=== PATIENT | female | born 1950 | race Caucasian/White ===

== ENCOUNTER 2016-09-16 17:57 | Inpatient (IN) | payer OTHER ==
[~2016-09-16] VITALS: Ht 170.2 cm; Wt 94.9 kg
[~2016-09-16 17:57] MED LIST: ALBU0.5N2 NEB; ALBU1AER9 INH; ALPR-411 PO; DLR500 PO; MECL1TAB42 PO; OMEP40CA PO; ONDA8TAB7 PO; SPRIN/30 PO; SYMIN160 INH; VENL150C PO
[2016-09-16] MEDS ORDERED: METHYLPREDNISOLONE 125 MG VIAL IV STA (18:24)
[2016-09-16] MEDS ORDERED: ALBUT/IPRATROP 3MG/0.5MG NEB 3 ML VIAL INH ONE (18:30)
[2016-09-16 18:42] VITALS: PULSE 78; O2SAT 98
[2016-09-16] MEDS ORDERED: VENL37.593 PO (18:50)
[2016-09-16] MEDS ORDERED: OMEP40CA41 PO (18:50)
[2016-09-16] MEDS ORDERED: PROAIR INH (18:50)
[2016-09-16] MEDS ORDERED: ALBINS/ INH (18:50)
[2016-09-16] MEDS ORDERED: GLC500 PO (18:50)
[2016-09-16 19:30] LABS: INR 0.9 (0.9-1.1); PARTIAL THROMBOPLASTIN RATIO 0.8
[2016-09-16 19:31] LABS: PROTHROMBIN TIME (PATIENT) 9.7 SECONDS (9.0-12.0)
[2016-09-16 20:08] LABS: HEMATOCRIT 28.4 % (37-47); MEAN CELL VOLUME 67.9 fL (80-100); MEAN CORPUSCULAR HEMOGLOBIN 19.9 pg (25-34); MEAN CORPUSCULAR HGB CONC 29.2 g/dl (32-36); PLATELET COUNT 188 K/uL (130-400); RED BLOOD COUNT 4.18 M/uL (4.2-5.4); WHITE BLOOD COUNT 8.32 K/uL (4.8-10.8)
[2016-09-16 20:13] LABS: BUN/CREATININE RATIO 24.2 (10-20); CALCIUM 8.7 mg/dl (8.5-10.1); CREATININE 0.74 mg/dl (0.60-1.20); POTASSIUM 4.1 mmol/L (3.5-5.1)
--- NOTE | 2016-09-16 20:42 | DIAGNOSTIC IMAGING REPORT ---
CHEST 2 VIEWS ROUTINE HISTORY: Short of breath. COMPARISON: Chest 05/18/2015. FINDINGS: There is advanced emphysema. Lower lung zone interstitial thickening remains unchanged and is likely due to vascular crowding. The heart is normal in size. No pleural effusions. No pneumothorax. No new focal lung consolidations. A questionable 9 mm nodular density within the left upper lobe. IMPRESSION: No acute process. Advanced emphysema is again noted. A questionable 9 mm nodular density within the left upper lobe which is likely due to overlapping soft tissue. However, follow-up nonemergent chest CT is recommended for confirmation. Electronically signed by: Herminio Forrest M.D. 09/16/2016 8:40 PM Dictated Date/Time: 09/16/2016 8:37 PM
[2016-09-16 20:56] LABS: BASO % 0.1 %; BASO ABS # 0.01 K/uL (0-0.2); COMPLETE YES; EOS % 1.8 %; HYPOCHROMIA PRESENT; IG% 0.2 %; LYMPH % 26.3 %; LYMPH ABS # 2.19 K/uL (1.2-3.4); MICROCYTOSIS PRESENT; MONO % 7.8 %; NEUT % 63.8 %; POLYCHROMASIA 1+
[2016-09-16] MEDS ORDERED: PANTOprazole INJ 80 MG in DEXTROSE 5% 100ML IV STA (21:19)
[2016-09-16] MEDS ORDERED: PANTOprazole INJ 40 MG in DEXTROSE 5% 100ML IV STA (21:20)
[2016-09-16 21:43] LABS: HEMATOCRIT 27.9 % (37-47)
[2016-09-16 21:54] LABS: VEN BLD GAS O2 SATURATION 80.6 %; VEN BLOOD GAS BASE EXCESS 4.6 mmol/L
[2016-09-16] MEDS ORDERED: NITROGLYCERIN 0.4 MG SL PER TAB CHARGE SL PRN (22:00)
[2016-09-16] MEDS ORDERED: GLUCAGON FOR INJ 1 MG VIAL SQ PRN (22:00)
[2016-09-16] MEDS ORDERED: GLUCOSE 10 TABS/TUBE PO PRN (22:00)
[2016-09-16] MEDS ORDERED: ACETAMINOPHEN 325 MG TAB PO PRN (22:00)
[2016-09-16] MEDS ORDERED: MoRPHine SULFATE 4 MG/ML 1 ML CARP\\VIAL IV PRN (22:00)
[2016-09-16] MEDS ORDERED: LORAZEPAM 2 MG/ML 1 ML VIAL IV PRN (22:00)
[2016-09-16] MEDS ORDERED: GLUCOSE 40% GEL 15 GM TUBE PO PRN (22:00)
[2016-09-16] MEDS ORDERED: DEXTROSE 50% 50 ML SYR IV PRN (22:00)
[2016-09-16 22:07] LABS: ALKALINE PHOSPHATASE 84 U/L (45-117); ALT/SGPT 21 U/L (12-78); AST/SGOT 14 U/L (15-37); MAGNESIUM 1.8 mg/dl (1.8-2.4)
[2016-09-16 23:00] VITALS: BP 120/68; TEMP 36.7; BMI 32.8
[2016-09-16] MEDS ORDERED: MAGNESIUM SULFATE 1GM / D5W 1 GM in PREMIXED IN D5W 100 ML IV ONE (23:00)
[2016-09-16] MEDS: CLOTRIMAZOLE 10 MG TROCHE MT SCH (23:00)
--- NOTE | 2016-09-16 23:02 | DIAGNOSTIC IMAGING REPORT ---
BILATERAL LOWER EXTREMITY VENOUS DOPPLER HISTORY: Difficulty breathing. Assess for DVT. leg cramping COMPARISON STUDY: None. FINDINGS: There is normal compressibility, flow, and augmentation within the bilateral lower extremity deep venous systems. IMPRESSION: No DVT within the right or left lower extremity. Electronically signed by: Herminio Forrest M.D. 09/16/2016 11:01 PM Dictated Date/Time: 09/16/2016 11:00 PM
[2016-09-16] MEDS ORDERED: DOXYCYCLINE IV 100 MG in DEXTROSE 5% 100ML 100 ML IV STA (23:31)
[2016-09-16] MEDS ORDERED: INSULIN GLARGINE SOLOSTAR 100 UNITS/ML 3 ML PEN SC STA (23:32)
[2016-09-16] MEDS ORDERED: GUAIFENESIN 600 MG TABCR PO STA (23:49)
--- NOTE | 2016-09-16 23:56 | HISTORY & PHYSICAL EXAMINATION ---
DATE OF ADMISSION: 09/16/2016 PRIMARY CARE DOCTOR: Dr. Rosales from [place]. Hx obtained from px and records. CHIEF COMPLAINT: Shortness of breath. HISTORY OF PRESENT ILLNESS: Medical history significant for chronic respiratory failure secondary to COPD on home O2, past tobacco abuse, anxiety, mood disorder, DM2, on oral medications, chronic anemia (most recent hemoglobin was 9.2 from 06/2016 at [facility]) Recent confinement at [facility] 05/2015 for COPD exacerbation. Patient was admitted at [facility] in 05/2016 for pneumonia. Discharged after 2 days on antibiotics and steroids. Breathing not any better even after discharge. PX suffering for next 2 months. Shortness of breath worse on exertion, occasional chest discomfort going across her chest from congestion. cough productive of sticky, junky haynes sputum denies aspiration some leg cramping Worsening symptoms the last 2 weeks. Px denies abdominal pain. Denies black/bloody stools. She saw her PCP on followup. He prescribed Amoxicillin and Prednisone course for her cough/sob sx. Px also prescribed gargle for oral thrush. Minimal sx improvement. She was sent for an outpatient CT chest wo contrast yesterday at [facility] by PCP. Pneumonia seemed to resolve, stable COPD, benign lung nodules, no lung malignancy as per report. Outpatient chemistry also done. Of note, hemoglobin A1c was noted to be 9. TSH was noted to be 1.38. Patient consulted Emergency Room for worsening shortness of breath/cough symptoms. Px given Solumedrol and nebs at the ER for COPD exacerbation. MEDICAL HISTORY: As above. According to the patient, she had an EGD about 3 years ago which showed "fungus and inflammation" ?Kavitha esophagitis. Colonoscopy done 3 yrs ago was "normal" as per px Colonoscopy from years prior showed polyps. SURGERIES: She has had section. HOME MEDICATIONS: Include metformin, Effexor, Spiriva, Daliresp, Proventil, alprazolam, Symbicort, Prilosec. ALLERGIES: No known drug allergies. FAMILY HISTORY: COPD, colon cancer. PERSONAL AND SOCIAL HISTORY: Past tobacco abuse. No chronic intake of alcoholic beverages. Retired from property management/rental work. REVIEW OF SYSTEMS: As per HPI. All other ROS negative. PHYSICAL EXAMINATION: VITAL SIGNS: Blood pressure was noted to be 150/70, pulse rate 88, RR 24, temp 36.6, sats 95 on 4 liters. GENERAL: Noted to be obese, anxious, no respiratory distress. SKIN: Pallor. HEENT: Pale palpebral conjunctivae. Dry mucosa. nasal cannula in place NECK: Short neck. LUNGS: Decreased breath sounds. Occasional wheeze. HEART: Regular rate and rhythm. ABDOMEN: Some distention, nontender. RECTAL EXAM as per ER MD : brown stool, FOBT positive EXTREMITIES: Minimal LE edema, no tenderness. NEUROLOGIC: No gross focality. LABORATORY DATA: Hemoccult done in the ER was heme positive. Hemoglobin was 8.2, hematocrit 28.4, white cell count 9, platelets 188. Sodium 140, potassium 4.1, chloride 112, CO2 18, BUN 18, creatinine 0.7, glucose was noted to be 171. trop 0 Venous blood gas, pH 7.41, pCO2 of 48. (px refused ABG) Chest x-ray showed emphysema, questionable 9 mm nodular density left upper lobe. EKG NSR, low voltage, no ischemia ASSESSMENT: 1. Shortness of breath for weeks/months multifactorial : acute on chronic hypoxemic respiratory failure secondary to chronic obstructive pulmonary disease exacerbation, protracted symptoms No sepsis. Symptomatic anemia. Hemoglobin drop from baseline, occult gastrointestinal bleed. ro underlying pulmonary hypertension. 2. DM2, on oral meds, suboptimal control as of recent A1c. 3. oral thrush. 4. past tobacco abuse PLAN: PCU. Supplemental O2. Cultures. Doxycycline, nebs, steroids. Pulmonary consult for COPD exacerbation (px known to Dr. Lacey) 2D echo RE shortness of breath, rule out pulmonary hypertension. Transfuse pRBC for symptomatic anemia GI consult for occult GI bleed, hemoglobin drop. Clotrimazole julian for thrush. Basal insulin, ISS BG goal 140-180. Carb count coverage indicated for suboptimal blood sugar control. DM education PT/OT eval DVT prophylaxis, SCDs. RE occult GI bleed. Full code. MTDD
[2016-09-17] VITALS (28 sets, daily range): BP systolic 110–147; BP diastolic 51–72; PULSE 63–99; TEMP 36.5–37.3; O2SAT 89–99; Ht 170.2 cm; Wt 94.9 kg
--- NOTE | 2016-09-17 00:29 | EMERGENCY ROOM VISIT NOTE ---
History Report prepared by Lobo: Esther Lewis Under the Supervision of: Dr. Johnny Fisher M.D. First contact with patient: 18:15 Chief Complaint: RESPIRATORY DISTRESS Stated Complaint: CAN'T BREATH, COPD History of Present Illness The patient is a 65 year old female who presents to the Emergency Room with complaints of worsening shortness of breath for the past few weeks. She has a history of COPD and is on 2L of O2 all the time. The patient was admitted to [facility] in May with bilateral pneumonia. She was discharged with steroids and antibiotics and states that she never fully recovered from her pneumonia. The patient saw her PCP 1 month ago for shortness of breath and was placed on amoxicillin and a steroid. She just finished these medications 2 days ago, but is not feeling better. The patient reports chest pain for the past few months that radiates into her back. Her pain as a soreness to her sternum. It is worse with cough. She has a productive cough with whitish-steele sputum. Her shortness of breath has worsened to the point where she is not able to walk short distances in her home without getting short of breath. Any exertion exacerbates her symptoms. The patient notes slight swelling to her lower extremities. She has had some nausea and vomiting intermittently over the past few months. The patient's PCP ordered a CT scan and blood work yesterday. She was feeling worse today so she came to the ED for further evaluation. She denies fever. Source of History: patient Onset: [employer] Position: chest (respiratory) Quality: other (SOB) Timing: worsening Modifying Factors (Worsening): exertion Modifying Factors (Relieving): oxygen Associated Symptoms: + back pain, + chest pain, + cough (productive), + nausea, + vomiting, No fevers Review of Systems See HPI for pertinent positives & negatives. A total of 10 systems reviewed and were otherwise negative. Past Medical & Surgical Medical Problems: (1) Bronchitis (2) COPD (chronic obstructive pulmonary disease) (3) Emphysema of lung (4) Pneumonia (5) Respiratory failure, acute Surgical Problems: (1) H/O: section (2) H/O: hysterectomy Family History Diabetes mellitus FH: cancer FH: heart disease Hypertension Social History Smoking Status: Former Smoker Alcohol Use: none Marital Status: Housing Status: lives with significant other Occupation Status: unemployed Current/Historical Medications Scheduled Albuterol Sulf (Proventil 0.083% 2.5MG/3ML), 1 UNIT INH QID Alprazolam (Alprazolam), 0.5 MG PO BID Budesonide/Formoterol Fumarate (Symbicort 160/4.5 Inhaler), 2 PUFF INH BID Metformin HCl (Metformin HCl), 500 MG PO BID Omeprazole (Prilosec), 40 MG PO DAILY Roflumilast (Daliresp), 500 MCG PO DAILY Tiotropium [place] (Spiriva Handihaler), 1 CAP PO DAILY Venlafaxine Hcl (Effexor Xr), 150 MG PO DAILY Venlafaxine Hcl (Venlafaxine Extended Rel), 37.5 MG PO DAILY Scheduled PRN [Proair], 2 PUFF INH Q4 PRN for Shortness of Breath Allergies Coded Allergies: No Known Allergies (Unverified , 06/07/15) Physical Exam Vital Signs Date Time Temp Pulse Resp B/P Pulse Ox O2 Delivery O2 Flow Rate FiO2 09/16/16 20:41 90 16 128/56 93 Nasal Cannula 2.0 09/16/16 20:40 Nasal Cannula 2.0 09/16/16 19:03 98 Nasal Cannula 2.0 09/16/16 19:03 72 09/16/16 18:42 78 18 98 Nasal Cannula 4.0 09/16/16 18:03 36.6 80 24 133/71 95 Nasal Cannula 4.0 Physical Exam Constitutional: Vital signs reviewed. Eyes: Pupils are equal round reactive to light. Conjunctiva are noninjected. ENT: Pharynx is clear without erythema or exudate. Mucous membranes are moist. Neck supple without meningeal signs. Respiratory: Diffuse expiratory wheezing bilaterally with fair air entry. Breath sounds are equal bilaterally. Cardiovascular: Regular rate and rhythm. No rubs or gallops. GI: Soft, nondistended and nontender. Bowel sounds are present. Rectal: Guaiac positive, brown stool. Musculoskeletal: Sternal tenderness on palpation. No peripheral edema. No lower extremity tenderness. Integumentary: No cyanosis. Neurological: The patient is awake and alert. No focal deficits. Psychiatric: Normal affect. Medical Decision & Procedures ER Provider Diagnostic Interpretation: Radiology results as stated below per my review and the radiologist's interpretation: CHEST 2 VIEWS ROUTINE HISTORY: Short of breath. COMPARISON: Chest 05/18/2015. FINDINGS: There is advanced emphysema. Lower lung zone interstitial thickening remains unchanged and is likely due to vascular crowding. The heart is normal in size. No pleural effusions. No pneumothorax. No new focal lung consolidations. A questionable 9 mm nodular density within the left upper lobe. IMPRESSION: No acute process. Advanced emphysema is again noted. A questionable 9 mm nodular density within the left upper lobe which is likely due to overlapping soft tissue. However, follow-up nonemergent chest CT is recommended for confirmation. Electronically signed by: Herminio Forrest M.D. 09/16/2016 8:40 PM Dictated Date/Time: 09/16/2016 8:37 PM Laboratory Results 09/16/16 18:40 Red Blood Count 4.18, Mean Corpuscular Volume 67.9, Mean Corpuscular Hemoglobin 19.9, Mean Corpuscular Hemoglobin Concent 29.2, Mean Platelet Volume 9.0, Neutrophils (%) (Auto) 63.8, Lymphocytes (%) (Auto) 26.3, Monocytes (%) (Auto) 7.8, Eosinophils (%) (Auto) 1.8, Basophils (%) (Auto) 0.1, Neutrophils # (Auto) 5.30, Lymphocytes # (Auto) 2.19, Monocytes # (Auto) 0.65, Eosinophils # (Auto) 0.15, Basophils # (Auto) 0.01 09/16/16 21:28 09/16/16 18:40 Test 09/16/16 18:40 09/16/16 18:47 09/16/16 21:28 White Blood Count 8.32 K/uL (4.8-10.8) Red Blood Count 4.18 M/uL (4.2-5.4) Hemoglobin 8.3 g/dL (12.0-16.0) Hematocrit 28.4 % (37-47) Mean Corpuscular Volume 67.9 fL (80-100) Mean Corpuscular Hemoglobin 19.9 pg (25-34) Mean Corpuscular Hemoglobin Concent 29.2 g/dl (32-36) Platelet Count 188 K/uL (130-400) Mean Platelet Volume 9.0 fL (7.4-10.4) Neutrophils (%) (Auto) 63.8 % Lymphocytes (%) (Auto) 26.3 % Monocytes (%) (Auto) 7.8 % Eosinophils (%) (Auto) 1.8 % Basophils (%) (Auto) 0.1 % Neutrophils # (Auto) 5.30 K/uL (1.4-6.5) Lymphocytes # (Auto) 2.19 K/uL (1.2-3.4) Monocytes # (Auto) 0.65 K/uL (0.11-0.59) Eosinophils # (Auto) 0.15 K/uL (0-0.5) Basophils # (Auto) 0.01 K/uL (0-0.2) RDW Standard Deviation 42.7 fL (36.4-46.3) RDW Coefficient of Variation 17.3 % (11.5-14.5) Immature Granulocyte % (Auto) 0.2 % Immature Granulocyte # (Auto) 0.02 K/uL (0.00-0.02) Polychromasia 1+ Hypochromasia PRESENT Basophilic Stippling 1+ Microcytosis PRESENT Prothrombin Time 9.7 SECONDS (9.0-12.0) Prothromb Time International Ratio 0.9 (0.9-1.1) Activated Partial Thromboplast Time 21.9 SECONDS (21.0-31.0) Partial Thromboplastin Ratio 0.8 Anion Gap 10.0 mmol/L (3-11) Est Creatinine Clear Calc Drug Dose 88.5 ml/min Estimated GFR () 97.8 Estimated GFR (Non- 84.4 BUN/Creatinine Ratio 24.2 (10-20) Calcium Level 8.7 mg/dl (8.5-10.1) Bedside Troponin I 0.000 ng/ml (0-0.045) Venous Blood pH 7.41 (7.36-7.41) Venous Blood Partial Pressure CO2 48 mmHg (38.0-50.0) Venous Blood Partial Pressure O2 48 mmHg Venous Blood HCO3 30 mmol/L Venous Blood Oxygen Saturation 80.6 % Venous Blood Base Excess 4.6 mmol/L Magnesium Level 1.8 mg/dl (1.8-2.4) Total Bilirubin 0.2 mg/dl (0.2-1) Direct Bilirubin < 0.1 mg/dl (0-0.2) Aspartate Amino Transf (AST/SGOT) 14 U/L (15-37) Alanine Aminotransferase (ALT/SGPT) 21 U/L (12-78) Alkaline Phosphatase 84 U/L (45-117) Total Protein 6.7 gm/dl (6.4-8.2) Albumin 3.4 gm/dl (3.4-5.0) Laboratory results as reviewed by me. Medications Administered Medications (Trade) Dose Ordered Sig/Leah Route Start Time Stop Time Status Last Admin Dose Admin Methylprednisolone Sodium Succinate (Solu-Medrol IV) 125 mg NOW STAT IV 09/16/16 18:24 09/16/16 18:26 DC 09/16/16 19:00 125 MG Albuterol/ Ipratropium (Duoneb) 12 ml ONE ONCE INH 09/16/16 18:30 09/16/16 18:31 DC 09/16/16 18:42 12 ML ECG Indication: SOB/dyspnea Rate (beats per minute): 89 Rhythm: normal sinus Findings: no acute ischemic change, no ectopy, other (low voltage QRS) ED Course 1814: The patient was evaluated in room A11A. A complete history and physical exam was performed. 1823: Solu-Medrol 125 mg IV 1829: Duoneb 12 ml INH 1919: I updated the patient on her results. She is still wheezing and getting her nebulizer treatment. 2029: I reassessed the patient at this time. She is 90% on 2L of O2. She is still tachypneic and wheezing. She reports that she has been having dark stools but is on iron. She was supposed to have a colonoscopy but cancelled it because she was sick. I performed a rectal examination at this time which revealed guaiac positive brown stool. She reports that she was anemic a year ago and had to be transfused. At this time I discussed the results and treatment plan with the patient. I answered all pertaining questions that she had. She expressed understanding and verbalized agreement. 2037: I spoke with Dr. Dahl. We discussed the patients results and treatment plan. The patient will be evaluated by the [facility] for further management. Medical Decision This is a 65-year-old female presents with shortness of breath. Differential diagnosis includes COPD exacerbation, pneumonia, pleural effusion, CHF, pneumothorax, anemia. I did perform a limited focused review of portions of the patient's old chart on the electronic medical record. The patient was here in 2014 for COPD exacerbation. She had a CT of the chest without contrast yesterday which showed resolution of pneumonia, no active lung disease, stable COPD, and benign lung nodules. I did evaluate the patient as noted above. The patient is wheezing diffusely on examination. She complains of chest pain for several months which is reproducible on examination. She is on 2 L of oxygen at home. IV access was established. The patient was placed on a continuous briar cutter. I did shoot her with an hour-long continuous nebulizer. She was also given Solu- Medrol IV. I did order and personally review the patient's 12-lead EKG and chest x-ray as described above. I did order and review the patient's blood work as noted in the electronic medical record. She is anemic. She states that she has had dark stools for some time and was scheduled for colonoscopy but she had to cancel the appointment because she was ill. I did perform a rectal examination which showed guaiac positive brown stool. No melena. No gross blood. I did reassess the patient. She has continued wheezing and still feels short of breath. I did recommend hospitalization for further workup. I did discuss the test results with the patient. I did discuss case with the hospitalist and case coordinator. Consults Time Called: 2035 Consulting Physician: Dr. Dahl Returned Call: [phone] Dahl. We discussed the patients results and treatment plan. The patient will be evaluated by the [facility] for further management. Impression Primary Impression: COPD exacerbation Additional Impressions: Symptomatic anemia Guaiac positive stools Scribe Attestation The scribe's documentation has been prepared under my direct and personally reviewed by me in its entirety. I confirm that the note above accurately reflects all work, treatment, procedures, and medical decision making performed by me. Departure Information Dispostion Being Evaluated By Hospitalist Referrals Azar Rosales D.O. (PCP) Patient Instructions Asthma - [facility], COPD - [facility], Croup - [facility], [facility] Health Problem Qualifiers
[2016-09-17] MEDS: TRAMADOL HCL 50 MG TAB PO PRN ×2 (01:33→12:40)
[2016-09-17] MEDS ORDERED: SODIUM CHLORIDE 0.9% 1000ML 1,000 ML IV STA (01:52)
[2016-09-17] MEDS ORDERED: INSULIN GLARGINE SOLOSTAR 100 UNITS/ML 3 ML PEN SC ONE (02:00)
[2016-09-17] MEDS ORDERED: SODIUM CHLORIDE 0.9% 500ML 500 ML IV ONE (02:00)
[2016-09-17] MEDS ORDERED: INSULIN ASPART 100 UNITS/ML 3 ML PEN SC ONE (02:00)
[2016-09-17] MEDS ORDERED: ALBUT/IPRATROP 3MG/0.5MG NEB 3 ML VIAL INH SCH (03:00)
[2016-09-17] MEDS ORDERED: LEVALBUTEROL/IPRATROPIUM NEB INH SCH (03:00)
[2016-09-17] MEDS: METHYLPREDNISOLONE 4 MG TAB PO SCH ×4 (06:44→21:39)
[2016-09-17] MEDS: CLOTRIMAZOLE 10 MG TROCHE MT SCH ×5 (06:45→22:44)
[2016-09-17] MEDS: IPRATROPIUM BROMIDE NEB SOLN 0.02% 2.5 ML VIAL INH SCH ×3 (07:41→19:17)
[2016-09-17] MEDS: LEVALBUTEROL 1.25MG/0.5ML NEB INH SCH ×3 (07:41→19:17)
[2016-09-17] MEDS ORDERED: METHYLPREDNISOLONE IV 40 MG in SYRINGE 0 ML IV SCH (08:00)
[2016-09-17] MEDS ORDERED: METHYLPREDNISOLONE 4MG TAB, 6 DAY TAPER PO SCH (08:00)
--- NOTE | 2016-09-17 08:01 | Clinical Documentation Query ---
CLINICAL VALIDATION QUERY ESTEBAN Steward : Thank you for your documentation of acute respiratory failure noted on 09/16/16 in the H&P. Due to recent RAC audit denials and stringent requirements passed on by our coding department, clear clinical indicators and treatment must be present. Please include the clinical support and treatment in your next progress note. Our coding department is requiring at least 2 of the indicators below or they will not code this diagnosis: Acute Respiratory Failure indicators include: * Respirations >28 or tachypnea * Air hunger * Use of accessory muscles of respiration * Inability to speak in full sentences *Cyanosis * Pulse ox <90% RA or <95% on O2 Thank You, Tequila David, RN [phone]
--- NOTE | 2016-09-17 08:06 | Gastrointestinal Consultation ---
Gastrointestinal Consultation Date of Consultation: Sep 17, 2016 Attending Physician: Consult from Dr. Dahl; On Dr. Dyer's service Consulting Physician: Dr. Worthington Reason for Consultation: GI Bleed History of Present Illness Patient is a 65 year old female patient of Dr. Azar Rosales with a hx of severe COPD presented to the ED for SOB. GI is consulted for a "GI Bleed." On arrival she was anemic at Hb 8.2, down from 9.2 in May 2016 and down from 14 in July 2015. Iron on arrival is 16, ferritin 8. Also, she had normal blood indices in Jul 2015. The patient was breathing about 25/min with O2 by canula, having just ambulated to the bathroom. During our interview, she started to cry, remembering the of her sister. Regarding her symptoms, she says she "hasn't been well" since her sister in October 2014. She remembers being progressively more SOB but doesn't know when this started, only that it "keeps getting worse." She was recently treated for pneumonia at [facility]. She is on home O2 for the COPD and presented here for worsening SOB, just a few days after dc from [place]. She denies any gross GI bleeding. No abdominal pain. No unexplained weight loss. She recalls being on iron about 10 years ago. She also recalls having an EGD and a colonoscopy about 10 yrs ago in [place] and doesn't recall any abnormalities. Past Medical/Surgical History Medical Problems: (1) COPD exacerbation Status: Acute (2) Guaiac positive stools Status: Acute (3) Symptomatic anemia Status: Acute Past Medical History: 1. Severe COPD 2. Pneumonia 3. HTN 4. GERD 5. Arthritis 6. Depression Past Surgical History: 1. Two C-sections 2. According to the patient, she underwent EGD and colonoscopy about 3 yrs ago with findings of esophagitis. Family History Diabetes mellitus FH: cancer FH: heart disease Hypertension Father and sister: colon cancer; Mother COPD Social History Smoking Status: Former Smoker Alcohol Use: none Marital Status: Housing Status: lives with significant other Occupation Status: unemployed Allergies Coded Allergies: No Known Allergies (Unverified , 06/07/15) Current Medications Home Meds and Scripts Medications Dose Route/Sig Max Daily Dose Days Date Category Dose Instructions Venlafaxine Extended Rel (Venlafaxine Hcl) 37.5 Mg Cap 37.5 Mg PO DAILY 09/16/16 Reported TAKE WITH 150 MG Metformin HCl 500 Mg Tab 500 Mg PO BID 09/16/16 Reported Prilosec (Omeprazole) 40 Mg Cap 40 Mg PO DAILY 09/16/16 Reported Proventil 0.083% 2.5MG/3ML (Albuterol Sulf) 2.5 Mg/3 Ml Nebu 1 Unit INH QID 09/16/16 Reported [Proair] 2 Puff INH Q4 PRN 09/16/16 Reported Alprazolam 0.5 Mg Tab 0.5 Mg PO BID 05/18/15 Reported Daliresp (Roflumilast) 500 Mcg Tab 500 Mcg PO DAILY 05/18/15 Reported Effexor Xr (Venlafaxine Hcl) 150 Mg Cap 150 Mg PO DAILY 05/18/15 Reported Spiriva Handihaler (Tiotropium [place]) 30 Puff/540 Mcg Aerp 1 Cap PO DAILY 05/18/15 Reported Symbicort 160/4.5 Inhaler (Budesonide/Formoterol Fumarate) 120 Puffs/ Aero 2 Puff INH BID 05/18/15 Reported Review of Systems Constitutional: No chills, No fever, No sweats, No weakness, No weight loss Eyes: No eye pain, No redness ENT: No pain on swallowing, No sore throat, No trouble swallowing Respiratory: + shortness of breath, + wheezing, No cough, No dyspnea on exertion Cardiac: No chest pain, No edema, No palpitations Abdomen: + see HPI, No constipation, No diarrhea, No nausea, No pain, No vomiting Neuro: No balance problems, No memory loss, No numbness/tingling, No vertigo, No weakness Psych: No anxiety, No depression symptoms, No insomnia Heme: No abnormal bleeding/bruising, No night sweats Endo: No excessive thirst, No excessive urination Skin: No itch, No jaundice, No new/changing skin lesions, No rash Physical Exam Date Time Temp Pulse Resp B/P Pulse Ox O2 Delivery O2 Flow Rate FiO2 09/17/16 07:31 36.6 92 18 121/68 90 09/17/16 05:03 36.7 95 18 120/68 92 Nasal Cannula 2.0 09/17/16 04:00 95 Nasal Cannula 2.0 09/17/16 01:57 96 18 95 Nasal Cannula 2.0 09/17/16 00:03 36.8 96 20 147/71 93 Nasal Cannula 3.0 09/16/16 23:00 36.7 18 120/68 Nasal Cannula 2.0 09/16/16 20:41 90 16 128/56 93 Nasal Cannula 2.0 09/16/16 20:40 Nasal Cannula 2.0 09/16/16 19:03 98 Nasal Cannula 2.0 09/16/16 19:03 72 09/16/16 18:42 78 18 98 Nasal Cannula 4.0 09/16/16 18:03 36.6 80 24 133/71 95 Nasal Cannula 4.0 General Appearance: + mild distress (due to SOB) Eyes: normal inspection, EOMI Neck: supple, no adenopathy, thyroid normal Respiratory/Chest: chest non-tender, + decreased breath sounds, + accessory muscle use (slight, after ambulation), + rales (at bases), + wheezing Cardiovascular: regular rate, rhythm, no JVD, no murmur Abdomen: normal bowel sounds, non tender, soft, no organomegaly Extremities: normal inspection, no pedal edema, normal capillary refill Neurologic/Psych: alert, normal mood/affect, oriented x 3 Skin: normal color, no jaundice, warm/dry, no rash Laboratory Results Last 24 Hours Test 09/16/16 18:40 09/16/16 18:47 09/16/16 21:28 09/17/16 01:23 White Blood Count 8.32 K/uL Red Blood Count 4.18 M/uL Hemoglobin 8.3 g/dL 8.1 g/dL Hematocrit 28.4 % 27.9 % Mean Corpuscular Volume 67.9 fL Mean Corpuscular Hemoglobin 19.9 pg Mean Corpuscular Hemoglobin Concent 29.2 g/dl Platelet Count 188 K/uL Mean Platelet Volume 9.0 fL Neutrophils (%) (Auto) 63.8 % Lymphocytes (%) (Auto) 26.3 % Monocytes (%) (Auto) 7.8 % Eosinophils (%) (Auto) 1.8 % Basophils (%) (Auto) 0.1 % Neutrophils # (Auto) 5.30 K/uL Lymphocytes # (Auto) 2.19 K/uL Monocytes # (Auto) 0.65 K/uL Eosinophils # (Auto) 0.15 K/uL Basophils # (Auto) 0.01 K/uL RDW Standard Deviation 42.7 fL RDW Coefficient of Variation 17.3 % Immature Granulocyte % (Auto) 0.2 % Immature Granulocyte # (Auto) 0.02 K/uL Polychromasia 1+ Hypochromasia PRESENT Basophilic Stippling 1+ Microcytosis PRESENT Prothrombin Time 9.7 SECONDS Prothromb Time International Ratio 0.9 Activated Partial Thromboplast Time 21.9 SECONDS Partial Thromboplastin Ratio 0.8 Sodium Level 140 mmol/L Potassium Level 4.1 mmol/L Chloride Level 102 mmol/L Carbon Dioxide Level 28 mmol/L Anion Gap 10.0 mmol/L Blood Urea Nitrogen 18 mg/dl Creatinine 0.74 mg/dl Est Creatinine Clear Calc Drug Dose 88.5 ml/min Estimated GFR () 97.8 Estimated GFR (Non- 84.4 BUN/Creatinine Ratio 24.2 Random Glucose 171 mg/dl Calcium Level 8.7 mg/dl Bedside Troponin I 0.000 ng/ml Venous Blood pH 7.41 Venous Blood Partial Pressure CO2 48 mmHg Venous Blood Partial Pressure O2 48 mmHg Venous Blood HCO3 30 mmol/L Venous Blood Oxygen Saturation 80.6 % Venous Blood Base Excess 4.6 mmol/L Magnesium Level 1.8 mg/dl Total Bilirubin 0.2 mg/dl Direct Bilirubin < 0.1 mg/dl Aspartate Amino Transf (AST/SGOT) 14 U/L Alanine Aminotransferase (ALT/SGPT) 21 U/L Alkaline Phosphatase 84 U/L Total Protein 6.7 gm/dl Albumin 3.4 gm/dl Bedside Glucose 449 mg/dl Test 09/17/16 04:44 09/17/16 05:11 09/17/16 07:15 Transferrin % Saturation % Bedside Glucose 308 mg/dl Impression Patient is a 65 year old female with COPD and iron deficiency anemia w/o gross GI bleeding. Differentials considered are ulcer disease (at risk with frequent prednisone use), colon cancer (though unlikely with normal colonoscopy 3 yrs ago ). Plan 1. EGD and colonoscopy after optimization of pulmonary status. Would support outpatient exams given acute pulm issues that need to be solidly improved prior to w/u. 2. May have regular diet now. I have seen , examined and agree with the plan as outlined by HOLLY De Luna as above. -exam reveals soft abd -Prolonged exp phase and significant pursed lip breathing -EGD/Colon for Anemia after pulm issues resolved
[2016-09-17] MEDS: ALPRAZOLAM 0.5 MG TAB PO SCH ×2 (08:23→21:39)
[2016-09-17] MEDS: VENLAFAXINE HCL XR 150 MG CAPXR PO SCH (08:23)
[2016-09-17] MEDS: PANTOprazole SOD 40 MG TAB PO SCH (08:24)
[2016-09-17] MEDS: ROFLUMILAST 500 MCG TAB PO SCH (08:24)
[2016-09-17] MEDS: VENLAFAXINE HCL XR 37.5 MG CAPXR PO SCH (08:24)
[2016-09-17] MEDS: GUAIFENESIN 600 MG TABCR PO SCH ×2 (08:25→21:39)
[2016-09-17] MEDS: INSULIN ASPART 100 UNITS/ML 3 ML PEN SC SCH ×4 (08:28→21:41)
[2016-09-17] MEDS ORDERED: INSULIN GLARGINE SOLOSTAR 100 UNITS/ML 3 ML PEN SC SCH ×3 (08:30→09:00)
[2016-09-17] MEDS ORDERED: NYSTATIN SUSP 500,000 U/5 ML UDC PO SCH (09:00)
[2016-09-17 09:36] LABS: ANISOCYTOSIS PRESENT; BASO % 0.1 %; BASO ABS # 0.01 K/uL (0-0.2); COMPLETE YES; EOS % 0.1 %; HEMATOCRIT 26.7 % (37-47); IG% 0.5 %; LYMPH % 8.2 %; LYMPH ABS # 0.82 K/uL (1.2-3.4); MEAN CELL VOLUME 65.8 fL (80-100); MEAN CORPUSCULAR HGB CONC 28.8 g/dl (32-36); MEAN PLATELET VOLUME 9.2 fL (7.4-10.4); MICROCYTOSIS PRESENT; NEUT % 90.1 %; OVALOCYTES 1+; PLATELET COUNT 180 K/uL (130-400); RED BLOOD COUNT 4.06 M/uL (4.2-5.4)
[2016-09-17 09:41] LABS: CALCIUM 8.3 mg/dl (8.5-10.1); CREATININE 0.82 mg/dl (0.60-1.20); POTASSIUM 4.3 mmol/L (3.5-5.1)
[2016-09-17 09:46] LABS: FERRITIN 8.1 ng/ml (8.0-388.0); TOTAL IRON BINDING CAPACITY 419 mcg/dl (250-450)
[2016-09-17] MEDS ORDERED: PERFLUTREN LIPID MICROSPHERE (DEFINITY) IV ONE (10:49)
[2016-09-17 12:22] LABS: HEMATOCRIT 27.7 % (37-47)
[2016-09-17] MEDS: DOXYCYCLINE IV 100 MG in DEXTROSE 5% 100ML 100 ML IV SCH (12:29)
--- NOTE | 2016-09-17 13:11 | ECHOCARDIOGRAM REPORT ---
*NOTICE TO RECEIVING [employer]Y This information is strictly Confidential and protected under [place] law. [place] law prohibits you from making any further disclosure of this information unless further disclosure is expressly permitted by the written consent of the person to whom it pertains or is authorized by law. A general authorization for the release of medical or other information is not sufficient for this purpose. Hospital accepts no responsibility if the information is made available to any other person, INCLUDING THE PATIENT. Interpretation Summary * Conclusions -- * Normal LV chamber size with mild concentric LVH, sigmoid appearing septum. * Normal LV systolic function, EF 60-65%. * No segmental left ventricular wall motion abnormalities are noted. * Grade I diastolic dysfunction. * Poorly visualized valvular structures with no significant stenosis or regurgitation. Procedure Details * A complete two-dimensional transthoracic echocardiogram was performed (2D, M-mode, Doppler and color flow Doppler). * The study was technically difficult. * There were technical limitations due to patient'sPoor acoustic windows secondary to severe lung disease. * A contrast injection of Definity was performed to improve assessment of LV function. * Contrast was injected into an intravenous site in the right arm. * One vial of Definity ultrasound contrast was diluted in normal saline to a total volume of 10 ml. A total of '2' ml of solution was administered during imaging. * Lot # [id number] of Definity utilized for procedure. * Expiration date SEP 01. * The attending nurse who injected the contrast agent was ANGELICA BUCKLEY CPL, RN. Left Ventricle * The left ventricle is normal in size. * There is mild concentric left ventricular hypertrophy. * The basal septum is thickened and angulated consistent with sigmoid septum. * Ejection Fraction = 60-65%. * Left ventricular systolic function is normal. * No segmental left ventricular wall motion abnormalities are noted. * The left ventricular wall motion is normal at rest. Right Ventricle * The right ventricular cavity size is normal (basal dimension <4.2 cm in right ventricular apical 4-chamber view). * The right ventricular systolic function is normal as assessed by tricuspid annular plane systolic excursion (TAPSE) (normal >1.5 cm). Atria * The left atrial size is normal. * Right atrial size is normal. * No ASD detected; PFO is not assessed. Mitral Valve * The mitral valve is not well visualized. * There is no mitral valve stenosis. * There is no mitral regurgitation noted. Tricuspid Valve * The tricuspid valve is not well visualized. * There is no tricuspid stenosis. * No tricuspid regurgitation. Aortic Valve * The aortic valve is not well visualized. * No hemodynamically significant valvular aortic stenosis. * There is no significant aortic regurgitation. Pulmonic Valve * The pulmonary valve is not well seen, but the Doppler examination is normal without significant regurgitation or stenosis. Great Vessels * The aortic root is normal size. Pericardium/Pleural * There is no pericardial effusion. Left Ventricular Diastolic Function * Grade I diastolic dysfunction, (abnormal relaxation pattern). MMode 2D Measurements and Calculations IVSd 1.6 cm LVIDd 4.5 cm LVPWd 1.0 cm IVS/LVPW 1.5 EDV(Teich) 91.9 ml EDV(cubed) 90.5 ml LV mass(C)d 218.7 grams LV mass(C)dI 106.2 grams/m\S\2 Ao root diam 3.1 cm Ao root area 7.4 cm\S\2 LA dimension 2.8 cm LA/Ao 0.90 LVAd ap4 39.7 cm\S\2 LVLd ap4 9.1 cm EDV(MOD-sp4) 142.6 ml EDV(sp4-el) 146.7 ml LVAs ap4 23.7 cm\S\2 LVLs ap4 7.5 cm ESV(MOD-sp4) 61.6 ml ESV(sp4-el) 63.5 ml EF(MOD-sp4) 56.8 % EF(sp4-el) 56.7 % LVAd ap2 24.9 cm\S\2 LVLd ap2 7.9 cm EDV(MOD-sp2) 63.6 ml EDV(sp2-el) 66.8 ml LVAs ap2 16.1 cm\S\2 LVLs ap2 6.5 cm ESV(MOD-sp2) 32.4 ml ESV(sp2-el) 33.6 ml EF(MOD-sp2) 49.0 % EF(sp2-el) 49.7 % LVLd %diff -15.88 % EDV(MOD-bp) 101.8 ml LVLs %diff -15.36 % ESV(MOD-bp) 47.5 ml EF(MOD-bp) 53.3 % SV(MOD-sp4) 81.0 ml SI(MOD-sp4) 39.3 ml/m\S\2 SV(MOD-sp2) 31.2 ml SI(MOD-sp2) 15.1 ml/m\S\2 SV(MOD-bp) 54.3 ml SI(MOD-bp) 26.3 ml/m\S\2 SV(sp4-el) 83.3 ml SI(sp4-el) 40.4 ml/m\S\2 SV(sp2-el) 33.2 ml SI(sp2-el) 16.1 ml/m\S\2 Doppler Measurements and Calculations MV E max toshia 108.3 cm/sec MV A max toshia 126.3 cm/sec MV E/A 0.86 MV P1/2t max toshia 110.6 cm/sec MV P1/2t 71.3 msec MVA(P1/2t) 3.1 cm\S\2 MV dec slope 454.7 cm/sec\S\2 MV dec time 0.18 sec
--- NOTE | 2016-09-17 17:28 | Progress Note ---
Subjective Date of Service: Sep 17, 2016. Subjective Pt evaluation today including: conversation w/ patient, conversation w/ family , physical exam, lab review, review of studies, review of inpatient medication list Saw/examined the patient in room 278 States she came to the hospital due to severe shortness of breath Feels much better after therapy in the hospital Agreeable to the plan to transfuse PRBCs Problem List Medical Problems: (1) COPD exacerbation Status: Acute (2) Guaiac positive stools Status: Acute (3) Symptomatic anemia Status: Acute Review of Systems Constitutional: No chills, No fever Respiratory: + cough, + dyspnea at rest, + dyspnea on exertion, + shortness of breath, + sputum, + wheezing, No hemoptysis Cardiac: No chest pain, No edema, No palpitations Abdomen: No diarrhea, No nausea, No pain, No vomiting Medications Current Inpatient Medications Medications (Trade) Dose Ordered Sig/Leah Route Start Time Stop Time Status Last Admin Dose Admin Acetaminophen (Tylenol Tab) 650 mg Q4H PRN PO 09/16/16 22:00 10/16/16 21:59 Nitroglycerin (Nitrostat Tab) 0.4 mg UD PRN SL 09/16/16 22:00 10/16/16 21:59 Insulin Aspart (novoLOG ASPART) SLIDING SCALE If C... ACHS SC 09/17/16 06:30 09/17/16 12:33 11 UNITS Glucose (Glucose 40% Gel) 15-30 GRAMS 15 GRAMS... UD PRN PO 09/16/16 22:00 10/16/16 21:59 Glucose (Glucose Chew Tab) 4-8 Tablets 4 Tabl... UD PRN PO 09/16/16 22:00 10/16/16 21:59 Dextrose (Dextrose 50% 50ML Syringe) 25-50ML OF 50% DW IV FOR... UD PRN IV 09/16/16 22:00 10/16/16 21:59 Glucagon (Glucagon Inj) 1 mg UD PRN SQ 09/16/16 22:00 10/16/16 21:59 Tramadol HCl (Ultram Tab) 25 mg Q6H PRN PO 09/16/16 22:00 10/16/16 21:59 09/17/16 12:40 25 MG Ondansetron HCl (Zofran Inj) 4 mg Q6H PRN IV 09/16/16 22:00 10/16/16 21:59 Lorazepam (Ativan Inj) 0.5 mg Q4H PRN IV 09/16/16 22:00 10/16/16 21:59 Morphine Sulfate (MoRPHine SULFATE INJ) 4 mg Q6H PRN IV 09/16/16 22:00 09/30/16 21:59 Alprazolam (Xanax Tab) 0.5 mg BID PO 09/17/16 09:00 10/17/16 08:59 09/17/16 08:23 0.5 MG Roflumilast (Daliresp Tab) 500 mcg DAILY PO 09/17/16 09:00 10/17/16 08:59 09/17/16 08:24 500 MCG Venlafaxine HCl (effeXOR EXTENDED REL CAP) 150 mg DAILY PO 09/17/16 09:00 10/17/16 08:59 09/17/16 08:23 150 MG Venlafaxine HCl (effeXOR EXTENDED REL CAP) 37.5 mg DAILY PO 09/17/16 09:00 10/17/16 08:59 09/17/16 08:24 37.5 MG Pantoprazole Sodium (Protonix Tab) 40 mg DAILY PO 09/17/16 09:00 10/17/16 08:59 09/17/16 08:24 40 MG Albuterol/ Ipratropium 3 ml 3 ml Q2H PRN INH 09/16/16 22:00 10/16/16 21:59 Doxycycline Hyclate/Dextrose (Vibramycin IV/ D5 100ml) 110 ml @ 50 mls/hr Q12H IV 09/17/16 12:00 09/23/16 23:59 09/17/16 12:29 50 MLS/HR Guaifenesin (Mucinex Contr Rel Tab) 600 mg Q12H PO 09/17/16 09:00 10/17/16 08:59 09/17/16 08:25 600 MG Clotrimazole 1 fadi 1 fadi [id number] MT 09/16/16 23:00 09/26/16 22:59 09/17/16 15:38 1 FADI Lorazepam/Syringe (Ativan Inj/ Syringe) 1 ml @ 1 mls/min Q4H PRN IV 09/17/16 02:00 10/17/16 01:59 Methylprednisolone (Medrol Tab) 8 mg 07,21 PO 09/17/16 07:00 09/17/16 21:01 09/17/16 06:44 8 MG Methylprednisolone (Medrol Tab) 4 mg 13,18 PO 09/17/16 13:00 09/17/16 18:01 09/17/16 13:58 4 MG Methylprednisolone (Medrol Tab) 4 mg 07,13,18 PO 09/18/16 07:00 09/18/16 18:01 Methylprednisolone (Medrol Tab) 8 mg HS PO 09/18/16 21:00 09/18/16 21:01 Methylprednisolone (Medrol Tab) 4 mg 07,13,18,21 PO 09/19/16 07:00 09/19/16 21:01 Methylprednisolone (Medrol Tab) 4 mg 07,13,21 PO 09/20/16 07:00 09/20/16 21:01 Methylprednisolone (Medrol Tab) 4 mg 07,21 PO 09/21/16 07:00 09/21/16 21:01 Methylprednisolone (Medrol Tab) 4 mg 07 PO 09/22/16 07:00 09/22/16 07:01 Ipratropium [place] (Atrovent 0.02% 0.5MG/2.5ML Neb) 0.5 mg Q6R INH 09/17/16 09:00 10/17/16 08:59 09/17/16 14:51 0.5 MG Levalbuterol (Xopenex 1.25MG/ 0.5ML Neb) 1.25 mg Q6R INH 09/17/16 09:00 10/17/16 08:59 09/17/16 14:51 1.25 MG Insulin Glargine (Lantus Solostar Pen) 25 unit BID SC 09/17/16 21:00 10/17/16 20:59 Insulin Glargine (Lantus Solostar Pen) 25 unit 0830 SC 09/17/16 08:30 09/17/16 19:30 09/17/16 12:34 25 UNIT Objective Vital Signs Date Time Temp Pulse Resp B/P Pulse Ox O2 Delivery O2 Flow Rate FiO2 09/17/16 16:21 36.7 88 20 125/63 91 09/17/16 16:10 36.7 85 18 118/71 90 09/17/16 15:53 36.6 91 18 119/66 92 09/17/16 14:51 90 18 98 Nasal Cannula 4.0 09/17/16 14:37 36.8 87 16 110/51 98 Nasal Cannula 4.0 09/17/16 12:00 93 Nasal Cannula 4.0 09/17/16 11:15 37.0 98 20 138/62 91 4.0 09/17/16 08:00 93 Nasal Cannula 4.0 09/17/16 07:41 99 18 93 Nasal Cannula 2.0 09/17/16 07:31 36.6 92 18 121/68 90 09/17/16 05:03 36.7 95 18 120/68 92 Nasal Cannula 2.0 09/17/16 04:00 95 Nasal Cannula 2.0 09/17/16 01:57 96 18 95 Nasal Cannula 2.0 09/17/16 00:03 36.8 96 20 147/71 93 Nasal Cannula 3.0 09/16/16 23:00 36.7 18 120/68 Nasal Cannula 2.0 09/16/16 20:41 90 16 128/56 93 Nasal Cannula 2.0 09/16/16 20:40 Nasal Cannula 2.0 09/16/16 19:03 98 Nasal Cannula 2.0 09/16/16 19:03 72 09/16/16 18:42 78 18 98 Nasal Cannula 4.0 09/16/16 18:03 36.6 80 24 133/71 95 Nasal Cannula 4.0 Physical Exam General Appearance: no apparent distress Respiratory/Chest: no respiratory distress, no accessory muscle use, + decreased breath sounds, + wheezing Cardiovascular: regular rate, rhythm, no edema, no murmur Abdomen: normal bowel sounds, non tender, soft Extremities: non-tender, normal inspection, no pedal edema Laboratory Results Last 24 Hours Test 09/16/16 18:40 09/16/16 18:47 09/16/16 19:16 09/16/16 21:28 White Blood Count 8.32 K/uL Red Blood Count 4.18 M/uL Hemoglobin 8.3 g/dL 8.1 g/dL Hematocrit 28.4 % 27.9 % Mean Corpuscular Volume 67.9 fL Mean Corpuscular Hemoglobin 19.9 pg Mean Corpuscular Hemoglobin Concent 29.2 g/dl Platelet Count 188 K/uL Mean Platelet Volume 9.0 fL Neutrophils (%) (Auto) 63.8 % Lymphocytes (%) (Auto) 26.3 % Monocytes (%) (Auto) 7.8 % Eosinophils (%) (Auto) 1.8 % Basophils (%) (Auto) 0.1 % Neutrophils # (Auto) 5.30 K/uL Lymphocytes # (Auto) 2.19 K/uL Monocytes # (Auto) 0.65 K/uL Eosinophils # (Auto) 0.15 K/uL Basophils # (Auto) 0.01 K/uL RDW Standard Deviation 42.7 fL RDW Coefficient of Variation 17.3 % Immature Granulocyte % (Auto) 0.2 % Immature Granulocyte # (Auto) 0.02 K/uL Polychromasia 1+ Hypochromasia PRESENT Basophilic Stippling 1+ Microcytosis PRESENT Prothrombin Time 9.7 SECONDS Prothromb Time International Ratio 0.9 Activated Partial Thromboplast Time 21.9 SECONDS Partial Thromboplastin Ratio 0.8 Sodium Level 140 mmol/L Potassium Level 4.1 mmol/L Chloride Level 102 mmol/L Carbon Dioxide Level 28 mmol/L Anion Gap 10.0 mmol/L Blood Urea Nitrogen 18 mg/dl Creatinine 0.74 mg/dl Est Creatinine Clear Calc Drug Dose 88.5 ml/min Estimated GFR () 97.8 Estimated GFR (Non- 84.4 BUN/Creatinine Ratio 24.2 Random Glucose 171 mg/dl Calcium Level 8.7 mg/dl Bedside Troponin I 0.000 ng/ml 0.000 ng/ml Venous Blood pH 7.41 Venous Blood Partial Pressure CO2 48 mmHg Venous Blood Partial Pressure O2 48 mmHg Venous Blood HCO3 30 mmol/L Venous Blood Oxygen Saturation 80.6 % Venous Blood Base Excess 4.6 mmol/L Magnesium Level 1.8 mg/dl Total Bilirubin 0.2 mg/dl Direct Bilirubin < 0.1 mg/dl Aspartate Amino Transf (AST/SGOT) 14 U/L Alanine Aminotransferase (ALT/SGPT) 21 U/L Alkaline Phosphatase 84 U/L Total Protein 6.7 gm/dl Albumin 3.4 gm/dl Test 09/17/16 01:23 09/17/16 07:15 09/17/16 08:00 09/17/16 11:16 Bedside Glucose 449 mg/dl 308 mg/dl 339 mg/dl White Blood Count 10.00 K/uL Red Blood Count 4.06 M/uL Hemoglobin 7.7 g/dL Hematocrit 26.7 % Mean Corpuscular Volume 65.8 fL Mean Corpuscular Hemoglobin 19.0 pg Mean Corpuscular Hemoglobin Concent 28.8 g/dl Platelet Count 180 K/uL Mean Platelet Volume 9.2 fL Neutrophils (%) (Auto) 90.1 % Lymphocytes (%) (Auto) 8.2 % Monocytes (%) (Auto) 1.0 % Eosinophils (%) (Auto) 0.1 % Basophils (%) (Auto) 0.1 % Neutrophils # (Auto) 9.01 K/uL Lymphocytes # (Auto) 0.82 K/uL Monocytes # (Auto) 0.10 K/uL Eosinophils # (Auto) 0.01 K/uL Basophils # (Auto) 0.01 K/uL RDW Standard Deviation 40.9 fL RDW Coefficient of Variation 17.4 % Immature Granulocyte % (Auto) 0.5 % Immature Granulocyte # (Auto) 0.05 K/uL Anisocytosis PRESENT Microcytosis PRESENT Ovalocytes 1+ Absolute Reticulocyte Count 0.10 10^6/uL Percent Reticulocyte Count 2.3 % Sodium Level 140 mmol/L Potassium Level 4.3 mmol/L Chloride Level 104 mmol/L Carbon Dioxide Level 25 mmol/L Anion Gap 11.0 mmol/L Blood Urea Nitrogen 12 mg/dl Creatinine 0.82 mg/dl Est Creatinine Clear Calc Drug Dose 79.9 ml/min Estimated GFR () 86.4 Estimated GFR (Non- 74.6 BUN/Creatinine Ratio 15.0 Random Glucose 285 mg/dl Calcium Level 8.3 mg/dl Iron Level 16 mcg/dl Total Iron Binding Capacity 419 mcg/dl Transferrin 309 mg/dl Transferrin % Saturation 4 % Ferritin 8.1 ng/ml Troponin I < 0.015 ng/ml Vitamin B12 Level 665 pg/mL Folate 6.70 ng/mL Test 09/17/16 11:45 09/17/16 16:05 Hemoglobin 7.8 g/dL Hematocrit 27.7 % Bedside Glucose 220 mg/dl Assessment and Plan This is a 65 year old female with PMH of COPD, chronic respiratory failure on continuous O2 therapy, DM2, chronic anemia, depression/anxiety presents with worsening shortness of breath Acute on Chronic Respiratory Failure Acute COPD exacerbation patient has chronic respiratory failure Uses 2L O2 continuously at baseline presented with worsening shortness of breath received IV solu-medrol in the ER received doxycycline now on PO solu-medrol continue nebulizers PRN Continue Spiriva, and continue inhalers on discharge Anemia likely blood loss positive stool guaiac appreciate GI input - possible colonoscopy or EGD on Wednesday 09/20 Hgb dropped < 8 will transfuse two units PRBCs due to her shortness of breath recheck H/H four hours post transfusion DM2 uncontrolled with an A1c > 8.0% currently receiving Lantus 25 units BID insulin sliding scale will need tighter control as outpatient monitor BSGs with steroid use Depression/Anxiety continue home medications DVT ppx SCDs FULL CODE
--- NOTE | 2016-09-17 19:08 | Pulmonary Consultation ---
History General Date of Service: Sep 17, 2016. Stated Complaint: Respiratory Failure, Acute HPI The patient is a 65 year old female who presents to [facility] with complaints of Respiratory Failure, Acute. The patient's primary care provider is Azar Rosales D.O.. 65-year-old female admitted to [facility] on 09/16/2016 for acute on chronic shortness of breath, dramatically worsening over the last 2 weeks. Records demonstrate that the patient was treated at [facility] in June 2016 for pneumonia and discharged after total of 2 days on antibiotics and steroids. She has a continued shortness of breath with productive sputum and minimal relief over that period of time. During this time interval the patient was seen by her PCP and treated with amoxicillin as well as prednisone for her chronic productive cough as well as diagnosed and treated for oral thrush. Even with these interventions she notes minimal improvement. Per the records Also appears on the day prior to admission her primary care physician Center for CT without contrast demonstrating resolution of prior pneumonia and lung nodules described as benign. During our conversation the patient notes progressive dyspnea on exertion with mucus production over the last 5-6 years. She notes being admitted to an outside medical facility 5-6 years prior and told she had a severe COPD exacerbation. She then followed up with a inspector brake lining who performed pulmonary function studies and noted she had severe COPD and initiated her on oxygen therapy as well as metered-dose inhalers. Since that time she has not been followed by a inspector brake lining or had repeat pulmonary function tests. She does note slow steady decline to the point she has difficulty performing her ALDs. 6 months ago she did discontinue smoking and noted a dramatic improvement in her mucous production. The last 2 months of been very difficult with progressive shortness of breath to the point she is dyspneic at rest using accessory muscles. She does note mild increase in sputum production but still much less than prior to discontinue smoking. Since her admission she notes that dramatic improvement in her pulmonary signs and symptoms. Denies: Fever, chills, hemoptysis, pleurisy, weight loss Work-up: 1.EK09/16/2016: Within normal limits 2.Echocardiogram: 09/16/2016 a.LV: LVH, EF=60-65% b.RV: Function within normal limits, TAPSE (>1.5cm) c.Grade 1 diastolic dysfunction 3.VB.41/48--- conversion to ABG-----7.45/40 4.INR: 0.8 5.DVT study: Within normal limits 6.Chest x-ray: a.Notable airspace disease bilaterally at the apices b.9 mm left upper lobe nodule c. Cephalization bilaterally, per bronchial cuffing, fluid in the minor fissure d. Flattened diaphragms bilaterally Treatment: 1.Methylprednisolone 2.Doxycycline 100 mg IV every 12 3.Roflumilast 500 g 4.Guaifenesin 60 mg twice a day 5.Xopenex/Atrovent nebulizers every 6 6.Duo nebs every 2 hours when necessary shortness of breath 7.Chlortrimazole troches Historian: patient, partner, EMS Review of Systems Constitutional: reports: malaise, weakness Eyes: reports: no symptoms ENT: reports: no symptoms Cardiovascular: reports: no symptoms Respiratory: reports: LANGE, shortness of breath, sputum production Gastrointestinal: reports: no symptoms Genitourinary - Female: reports: no symptoms Musculoskeletal: reports: myalgias Integumentary: reports: no symptoms Neurologic: reports: no symptoms Psychiatric: reports: no symptoms Endocrine: no symptoms Hematologic / Lymphatic: no symptoms Allergic / Immunologic: no symptoms Past Medical History Past Medical History: 1.COPD: Severity unknown 2.Oxygen dependent 3.Former tobacco abuse 4.Anxiety/depression 5.Mood disorder 6.Type 2 diabetes 7.Chronic anemia 8.Colonic polyps 9.Hypertension 10.GERD 11.Esophagitis: Per patient/ Past Surgical History: 1.Colonoscopy 2. Family History Diabetes mellitus FH: cancer FH: heart disease Hypertension Colon cancer Social History Hx Tobacco Use In Past Year?: Yes (WAS 1/2 TO 1 PACK A DAY, QUIT A MONTH AGO) Smoking Status: Former Smoker (quit 6 months prior) Marital status: Occupational Status: unemployed Allergies Coded Allergies: No Known Allergies (Unverified , 06/07/15) Current Medications Reported Home Medications Medications Dose Route/Sig Max Daily Dose Days Date Category Dose Instructions Venlafaxine Extended Rel (Venlafaxine Hcl) 37.5 Mg Cap 37.5 Mg PO DAILY 09/16/16 Reported TAKE WITH 150 MG Metformin HCl 500 Mg Tab 500 Mg PO BID 09/16/16 Reported Prilosec (Omeprazole) 40 Mg Cap 40 Mg PO DAILY 09/16/16 Reported Proventil 0.083% 2.5MG/3ML (Albuterol Sulf) 2.5 Mg/3 Ml Nebu 1 Unit INH QID 09/16/16 Reported [Proair] 2 Puff INH Q4 PRN 09/16/16 Reported Alprazolam 0.5 Mg Tab 0.5 Mg PO BID 05/18/15 Reported Daliresp (Roflumilast) 500 Mcg Tab 500 Mcg PO DAILY 05/18/15 Reported Effexor Xr (Venlafaxine Hcl) 150 Mg Cap 150 Mg PO DAILY 05/18/15 Reported Spiriva Handihaler (Tiotropium Gilbert) 30 Puff/540 Mcg Aerp 1 Cap PO DAILY 05/18/15 Reported Symbicort 160/4.5 Inhaler (Budesonide/Formoterol Fumarate) 120 Puffs/ Aero 2 Puff INH BID 05/18/15 Reported Physical Physical Exam Vital Signs: Date Time Temp Pulse Resp B/P Pulse Ox O2 Delivery O2 Flow Rate FiO2 09/17/16 18:25 36.7 88 18 116/68 93 09/17/16 17:25 37.1 88 18 134/71 94 Nasal Cannula 2.0 09/17/16 17:25 37.1 88 18 134/71 94 09/17/16 16:55 36.6 89 18 129/68 91 09/17/16 16:21 36.7 88 20 125/63 91 09/17/16 16:10 36.7 85 18 118/71 90 09/17/16 16:00 92 Nasal Cannula 2.0 09/17/16 15:53 36.6 91 18 119/66 92 09/17/16 14:51 90 18 98 Nasal Cannula 4.0 09/17/16 14:37 36.8 87 16 110/51 98 Nasal Cannula 4.0 09/17/16 12:00 93 Nasal Cannula 4.0 09/17/16 11:15 37.0 98 20 138/62 91 4.0 09/17/16 08:00 93 Nasal Cannula 4.0 09/17/16 07:41 99 18 93 Nasal Cannula 2.0 09/17/16 07:31 36.6 92 18 121/68 90 09/17/16 05:03 36.7 95 18 120/68 92 Nasal Cannula 2.0 09/17/16 04:00 95 Nasal Cannula 2.0 09/17/16 01:57 96 18 95 Nasal Cannula 2.0 09/17/16 00:03 36.8 96 20 147/71 93 Nasal Cannula 3.0 09/16/16 23:00 36.7 18 120/68 Nasal Cannula 2.0 09/16/16 20:41 90 16 128/56 93 Nasal Cannula 2.0 09/16/16 20:40 Nasal Cannula 2.0 09/16/16 19:03 98 Nasal Cannula 2.0 09/16/16 19:03 72 General Appearance: mild distress Head: NORMOCEPHALIC Eyes: PERRLA, NO DISCHARGE, EOMI, SCLERAE NORMAL ENT: NORMAL EAR EXAM, NORMAL NASAL EXAM, NORMAL MOUTH EXAM, NORMAL THROAT EXAM , NORMAL DENTAL EXAM Neck: NORMAL RANGE OF MOTION, NO TENDERNESS, TRACHEA MIDLINE, NO STRIDOR Respiratory: other (decreased breath sounds globally both anterior and posteriorly) Cardiovasular: REGULAR RATE/RHYTHM, NORMAL S1S2, NO M/G/R Abdomen: NON TENDER, NORMAL BOWEL SOUNDS, NO REBOUND, NO MASSES, NO GUARDING Genitourinary - Female: EXTERNAL GENITALIA NORMAL Back: NORMAL INSPECTION, NO MIDLINE TENDERNESS, NO CVA TENDERNESS, NO PARAVERTEBRAL TTP Lower Extremities: NO EDEMA Pulses: carotid (R) (2+), carotid (L) (2+), dorsalis pedis (R) (1+), dorsalis pedis (L) (1+) Neuro: ALERT, ORIENTED x 3, NORMAL MOTOR EXAM, NORMAL SENSATION Reflexes: biceps (R) (2+), bicpes (L) (2+), patellar (L) (1+), achilles (R) (1+ ) Babinski Testing: right (downgoing), left (downgoing) Psychiatric: NORMAL AFFECT, NO SUICIDAL IDEATION Diagnostics Labs Results Past 24 Hours Test 09/16/16 19:16 09/16/16 21:28 09/17/16 01:23 09/17/16 07:15 Range/Units Bedside Troponin I 0.000 0-0.045 ng/ml Hemoglobin 8.1 12.0-16.0 g/dL Hematocrit 27.9 37-47 % Venous Blood pH 7.41 7.36-7.41 Venous Blood Partial Pressure CO2 48 38.0-50.0 mmHg Venous Blood Partial Pressure O2 48 mmHg Venous Blood HCO3 30 mmol/L Venous Blood Oxygen Saturation 80.6 % Venous Blood Base Excess 4.6 mmol/L Magnesium Level 1.8 1.8-2.4 mg/dl Total Bilirubin 0.2 0.2-1 mg/dl Direct Bilirubin < 0.1 0-0.2 mg/dl Aspartate Amino Transf (AST/SGOT) 14 15-37 U/L Alanine Aminotransferase (ALT/SGPT) 21 12-78 U/L Alkaline Phosphatase 84 45-117 U/L Total Protein 6.7 6.4-8.2 gm/dl Albumin 3.4 3.4-5.0 gm/dl Bedside Glucose 449 308 70-90 mg/dl Test 09/17/16 08:00 09/17/16 11:16 09/17/16 11:45 09/17/16 16:05 Range/Units White Blood Count 10.00 4.8-10.8 K/uL Red Blood Count 4.06 4.2-5.4 M/uL Hemoglobin 7.7 7.8 12.0-16.0 g/dL Hematocrit 26.7 27.7 37-47 % Mean Corpuscular Volume 65.8 80-100 fL Mean Corpuscular Hemoglobin 19.0 25-34 pg Mean Corpuscular Hemoglobin Concent 28.8 32-36 g/dl Platelet Count 180 130-400 K/uL Mean Platelet Volume 9.2 7.4-10.4 fL Neutrophils (%) (Auto) 90.1 % Lymphocytes (%) (Auto) 8.2 % Monocytes (%) (Auto) 1.0 % Eosinophils (%) (Auto) 0.1 % Basophils (%) (Auto) 0.1 % Neutrophils # (Auto) 9.01 1.4-6.5 K/uL Lymphocytes # (Auto) 0.82 1.2-3.4 K/uL Monocytes # (Auto) 0.10 0.11-0.59 K/uL Eosinophils # (Auto) 0.01 0-0.5 K/uL Basophils # (Auto) 0.01 0-0.2 K/uL RDW Standard Deviation 40.9 36.4-46.3 fL RDW Coefficient of Variation 17.4 11.5-14.5 % Immature Granulocyte % (Auto) 0.5 % Immature Granulocyte # (Auto) 0.05 0.00-0.02 K/uL Anisocytosis PRESENT Microcytosis PRESENT Ovalocytes 1+ Absolute Reticulocyte Count 0.10 0.02-0.10 10^6/uL Percent Reticulocyte Count 2.3 0.5-2.0 % Sodium Level 140 136-145 mmol/L Potassium Level 4.3 3.5-5.1 mmol/L Chloride Level 104 98-107 mmol/L Carbon Dioxide Level 25 21-32 mmol/L Anion Gap 11.0 3-11 mmol/L Blood Urea Nitrogen 12 7-18 mg/dl Creatinine 0.82 0.60-1.20 mg/dl Est Creatinine Clear Calc Drug Dose 79.9 ml/min Estimated GFR () 86.4 Estimated GFR (Non- 74.6 BUN/Creatinine Ratio 15.0 10-20 Random Glucose 285 70-99 mg/dl Calcium Level 8.3 8.5-10.1 mg/dl Iron Level 16 35-150 mcg/dl Total Iron Binding Capacity 419 250-450 mcg/dl Transferrin 309 200-360 mg/dl Transferrin % Saturation 4 15-50 % Ferritin 8.1 8.0-388.0 ng/ml Troponin I < 0.015 0-0.045 ng/ml Vitamin B12 Level 665 211-911 pg/mL Folate 6.70 >5.38 ng/mL Bedside Glucose 339 220 70-90 mg/dl Test 09/17/16 18:00 Range/Units Microbiology Results 09/16/16 Blood Culture, Received Pending 09/17/16 MRSA DNA Surveillance Screen, Kaveh Batch Pending Diagnostic Radiology 1.Chest x-ray: a.Notable airspace disease bilaterally at the apices b.9 mm left upper lobe nodule c.Cephalization bilaterally, per bronchial cuffing, fluid in the minor fissure d. Flattened diaphragms bilaterally EKG Interpretation: NORMAL EKG Impression Assessment and Plan 65-year-old female admitted for acute on chronic respiratory insufficiency: #1 COPD - Obtain previous pulmonary function studies for evaluation of severity - Continue current inpatient medical regimen along with oxygen support - Perform nocturnal desaturation study for possibility of BiPAP initiation/ noted to decrease readmissions - GOLD Standards: Suggest we reinitiate Symbicort as well as Spiriva at this time -Possible initiation of erythromycin 3 times per week for refractory COPD - Doxycycline: We'll continue for good atypical coverage possible COPD benefit #2 pulmonary nodule: Chest x-ray demonstrates left upper lobe apical pulmonary nodule -Patient has had multiple CTs of the thorax done over the last 3-5 years. At this time I would like to review them for comparison.
[2016-09-17] MEDS: BUDESONIDE/FORMOTEROL FUMARATE 160/4.5 60 PUFFS/INHALER INH SCH (21:38)
[2016-09-17] MEDS: INSULIN GLARGINE SOLOSTAR 100 UNITS/ML 3 ML PEN SC SCH (21:42)
[2016-09-17 23:13] LABS: HEMATOCRIT 29.5 % (37-47)
[2016-09-18] VITALS (9 sets, daily range): BP systolic 121–163; BP diastolic 51–75; PULSE 67–88; TEMP 36.4–36.9; O2SAT 94–97
[2016-09-18] MEDS: DOXYCYCLINE IV 100 MG in DEXTROSE 5% 100ML 100 ML IV SCH ×2 (00:11→12:03)
[2016-09-18 06:48] LABS: BASO % 0.1 %; BASO ABS # 0.01 K/uL (0-0.2); EOS % 0.1 %; HEMATOCRIT 31.6 % (37-47); IG% 0.6 %; LYMPH % 8.8 %; LYMPH ABS # 1.19 K/uL (1.2-3.4); MEAN CELL VOLUME 70.2 fL (80-100); MEAN CORPUSCULAR HEMOGLOBIN 20.4 pg (25-34); MEAN CORPUSCULAR HGB CONC 29.1 g/dl (32-36); MEAN PLATELET VOLUME 9.1 fL (7.4-10.4); MONO % 6.4 %; PLATELET COUNT 179 K/uL (130-400); WHITE BLOOD COUNT 13.49 K/uL (4.8-10.8)
[2016-09-18 07:09] LABS: BUN/CREATININE RATIO 25.6 (10-20); CALCIUM 8.3 mg/dl (8.5-10.1); CREATININE 0.7 mg/dl (0.60-1.20); MAGNESIUM 2.3 mg/dl (1.8-2.4); POTASSIUM 4.5 mmol/L (3.5-5.1)
[2016-09-18 07:30] LABS: COMPLETE YES; HYPOCHROMIA PRESENT; LARGE PLATELETS 1+; MICROCYTOSIS PRESENT; TEAR DROP CELLS 1+
[2016-09-18] MEDS: METHYLPREDNISOLONE 4 MG TAB PO SCH ×3 (07:54→17:37)
[2016-09-18] MEDS: CLOTRIMAZOLE 10 MG TROCHE MT SCH ×4 (07:56→20:03)
[2016-09-18] MEDS: BUDESONIDE/FORMOTEROL FUMARATE 160/4.5 60 PUFFS/INHALER INH SCH ×2 (07:56→20:04)
[2016-09-18] MEDS: TIOTROPIUM BROMIDE 5 PUFF/90 MCG INH INH SCH (07:59)
[2016-09-18] MEDS: PANTOprazole SOD 40 MG TAB PO SCH (08:01)
[2016-09-18] MEDS: VENLAFAXINE HCL XR 37.5 MG CAPXR PO SCH (08:01)
[2016-09-18] MEDS: VENLAFAXINE HCL XR 150 MG CAPXR PO SCH (08:01)
[2016-09-18] MEDS: ROFLUMILAST 500 MCG TAB PO SCH (08:01)
[2016-09-18] MEDS: GUAIFENESIN 600 MG TABCR PO SCH ×2 (08:01→20:03)
[2016-09-18] MEDS: ALPRAZOLAM 0.5 MG TAB PO SCH ×2 (08:03→20:02)
[2016-09-18] MEDS: INSULIN GLARGINE SOLOSTAR 100 UNITS/ML 3 ML PEN SC SCH ×2 (08:42→21:18)
[2016-09-18] MEDS: INSULIN ASPART 100 UNITS/ML 3 ML PEN SC SCH ×4 (08:42→21:00)
[2016-09-18] MEDS ORDERED: PHARMACY GLYCEMIC MGMT CONSULT PRN (11:59)
--- NOTE | 2016-09-18 12:08 | Progress Note ---
Subjective Date of Service: Sep 18, 2016. Subjective Pt evaluation today including: conversation w/ patient, physical exam, lab review, review of studies, review of inpatient medication list Saw/examined the patient in room 278 Problem List Medical Problems: (1) COPD exacerbation Status: Acute (2) Guaiac positive stools Status: Acute (3) Symptomatic anemia Status: Acute Review of Systems Constitutional: No chills, No fever Respiratory: + cough, + dyspnea on exertion, + shortness of breath, + sputum, No dyspnea at rest, No wheezing Cardiac: No chest pain, No edema, No palpitations Abdomen: No GI bleeding, No diarrhea, No nausea, No pain, No vomiting Objective Vital Signs Date Time Temp Pulse Resp B/P Pulse Ox O2 Delivery O2 Flow Rate FiO2 09/18/16 11:19 36.5 67 16 147/70 95 Nasal Cannula 2.0 09/18/16 08:00 95 Nasal Cannula 2.0 09/18/16 07:16 36.7 73 16 121/51 95 Nasal Cannula 2.0 09/18/16 04:40 36.4 82 18 124/66 95 Nasal Cannula 2.0 Humidified Oxygen 09/18/16 04:00 Nasal Cannula 5.0 09/18/16 00:00 Nasal Cannula 5.0 09/17/16 23:21 37.1 80 20 124/69 93 Nasal Cannula Humidified Oxygen 09/17/16 21:35 36.7 85 20 120/71 89 09/17/16 20:35 36.5 87 20 129/72 93 2.0 09/17/16 20:05 37.3 83 20 132/71 94 2.0 09/17/16 20:00 92 Nasal Cannula 2.0 09/17/16 19:35 37.0 91 20 121/67 93 2.0 09/17/16 19:20 37.0 79 20 124/60 97 2.0 09/17/16 19:17 82 18 96 Nasal Cannula 2.0 09/17/16 19:03 36.7 88 20 115/68 99 09/17/16 18:25 36.7 88 18 116/68 93 09/17/16 17:25 37.1 88 18 134/71 94 Nasal Cannula 2.0 09/17/16 17:25 37.1 88 18 134/71 94 09/17/16 16:55 36.6 89 18 129/68 91 09/17/16 16:21 36.7 88 20 125/63 91 09/17/16 16:10 36.7 85 18 118/71 90 09/17/16 16:00 92 Nasal Cannula 2.0 09/17/16 15:53 36.6 91 18 119/66 92 09/17/16 14:51 90 18 98 Nasal Cannula 4.0 09/17/16 14:37 36.8 87 16 110/51 98 Nasal Cannula 4.0 Physical Exam General Appearance: + mild distress (respiratory) Respiratory/Chest: no accessory muscle use, + respiratory distress (mild respiratory distress), + decreased breath sounds Cardiovascular: regular rate, rhythm, no edema, no murmur Abdomen: normal bowel sounds, non tender, soft Extremities: non-tender, normal inspection, no pedal edema Neurologic/Psychiatric: no motor/sensory deficits, alert, normal mood/affect Skin: normal color Laboratory Results Last 24 Hours Test 09/17/16 16:05 09/17/16 20:02 09/17/16 23:00 09/18/16 06:27 Bedside Glucose 220 mg/dl 199 mg/dl Hemoglobin 9.0 g/dL 9.2 g/dL Hematocrit 29.5 % 31.6 % White Blood Count 13.49 K/uL Red Blood Count 4.50 M/uL Mean Corpuscular Volume 70.2 fL Mean Corpuscular Hemoglobin 20.4 pg Mean Corpuscular Hemoglobin Concent 29.1 g/dl Platelet Count 179 K/uL Mean Platelet Volume 9.1 fL Neutrophils (%) (Auto) 84.0 % Lymphocytes (%) (Auto) 8.8 % Monocytes (%) (Auto) 6.4 % Eosinophils (%) (Auto) 0.1 % Basophils (%) (Auto) 0.1 % Neutrophils # (Auto) 11.34 K/uL Lymphocytes # (Auto) 1.19 K/uL Monocytes # (Auto) 0.86 K/uL Eosinophils # (Auto) 0.01 K/uL Basophils # (Auto) 0.01 K/uL RDW Standard Deviation 48.9 fL RDW Coefficient of Variation 19.3 % Immature Granulocyte % (Auto) 0.6 % Immature Granulocyte # (Auto) 0.08 K/uL Large Platelets 1+ Hypochromasia PRESENT Microcytosis PRESENT Tear Drop Cells 1+ Sodium Level 142 mmol/L Potassium Level 4.5 mmol/L Chloride Level 107 mmol/L Carbon Dioxide Level 27 mmol/L Anion Gap 8.0 mmol/L Blood Urea Nitrogen 18 mg/dl Creatinine 0.70 mg/dl Est Creatinine Clear Calc Drug Dose 95.2 ml/min Estimated GFR () 104.6 Estimated GFR (Non- 90.3 BUN/Creatinine Ratio 25.6 Random Glucose 222 mg/dl Calcium Level 8.3 mg/dl Magnesium Level 2.3 mg/dl Test 09/18/16 07:24 09/18/16 11:33 Bedside Glucose 218 mg/dl 217 mg/dl Assessment and Plan This is a 65 year old female with PMH of COPD, chronic respiratory failure on continuous O2 therapy, DM2, chronic anemia, depression/anxiety presents with worsening shortness of breath Acute on Chronic Respiratory Failure Acute COPD exacerbation 09/18 patient presented with acute on chronic respiratory failure appreciate pulmonology input restart symbicort and spiriva cont PO steroids cont. doxycycline 2/ patient has chronic respiratory failure Uses 2L O2 continuously at baseline presented with worsening shortness of breath received IV solu-medrol in the ER received doxycycline now on PO solu-medrol continue nebulizers PRN Continue Spiriva, and continue inhalers on discharge Anemia 2/ s/p two units PRBCs Hgb >9 planned scopes on Tuesday, may need to push back to Tuesday depending on respiratory status 2/3 likely blood loss positive stool guaiac appreciate GI input - possible colonoscopy or EGD on Wednesday 09/20 Hgb dropped < 8 will transfuse two units PRBCs due to her shortness of breath recheck H/H four hours post transfusion DM2 2/ increased Lantus to 30 units BID tighter sliding scale glycemic control consultation 2/3 uncontrolled with an A1c > 8.0% currently receiving Lantus 25 units BID insulin sliding scale will need tighter control as outpatient monitor BSGs with steroid use Depression/Anxiety continue home medications DVT ppx SCDs FULL CODE
--- NOTE | 2016-09-18 12:40 | Pharmacy Progress Note ---
Glycemic Control Intl Consult Date of Service Sep 18, 2016. Scope Glycemic Pharmacist consulted by Dr Dyer on 09/18/16 for glycemic control and to write orders per [facility] inpatient glycemic control protocol Objective Weight (Kilograms): 98.200 Accuchecks BSG (last 24hrs): Test 09/17/16 16:05 09/17/16 20:02 09/18/16 06:27 09/18/16 07:24 Bedside Glucose 220 mg/dl (70-90) 199 mg/dl (70-90) 218 mg/dl (70-90) Random Glucose 222 mg/dl (70-99) Test 09/18/16 11:33 Bedside Glucose 217 mg/dl (70-90) Laboratory Data (last 24hrs) Test 09/18/16 06:27 Anion Gap 8.0 mmol/L BUN/Creatinine Ratio 25.6 Blood Urea Nitrogen 18 mg/dl Creatinine 0.70 mg/dl Potassium Level 4.5 mmol/L Sodium Level 142 mmol/L White Blood Count 13.49 K/uL Red Blood Count 4.50 M/uL Hemoglobin 9.2 g/dL Hematocrit 31.6 % Mean Corpuscular Volume 70.2 fL Mean Corpuscular Hemoglobin 20.4 pg Mean Corpuscular Hemoglobin Concent 29.1 g/dl Platelet Count 179 K/uL Mean Platelet Volume 9.1 fL Neutrophils (%) (Auto) 84.0 % Lymphocytes (%) (Auto) 8.8 % Monocytes (%) (Auto) 6.4 % Eosinophils (%) (Auto) 0.1 % Basophils (%) (Auto) 0.1 % Neutrophils # (Auto) 11.34 K/uL Lymphocytes # (Auto) 1.19 K/uL Monocytes # (Auto) 0.86 K/uL Eosinophils # (Auto) 0.01 K/uL Basophils # (Auto) 0.01 K/uL Recent Pertinent Medications Outpatient Anti-diabetic Regimen: * Metformin 500mg PO BID The patient is currently receiving: * Basal insulin: Lantus 25 units every 12 hours * Correctional Insulin: Novolog Correction per scale ACHS Goal Range: Low 140 mg/dL - High 180 mg/dL Correction Factor: 25 mg/dL/unit * Prandial insulin: Per carb ratio of 1 unit per 15 grams CHO consumed * Oral Agents: On hold for admission Risk Factors for Insulin Resistance: * Steroids: Medrol dose pack/taper * Infection * Diet Assessment & Plan ASSESSMENT: * 65yo T2DM female with unknown degree of outpatient control - A1c unknown. Will order per protocol * Pt is maintained on oral agent monotherapy with metformin as an outpatient. Metformin held on admission and initiated on SQ basal bolus insulin regimen for steroid induced hyperglycemia. * Pt with SEVERE hyperglycemia on 09/16 -09/17 secondary to Solu-medrol 125mg IV x 1 in ED and starting Medrol dose pack * Medrol dose pack starts with RTC dosing of methylprednisolone at 224mg/day -- > dose titrates by 4mg per day daily. * Pt will receive 20mg methylprednisolone today. Dose to taper to 16 mg tomorrow * Expect BSGs to improve with this step down in steroid dosing. Hesitant to further increase Lantus above high stress weight based dosing. Basal insulin needs may even decrease with reduced steroid dosing today. * Current bolus insulin dosing is very conservative for steroid induced hyperglycemia. Will tighten according to weight based mod stress dosing. * ADA & AACE recommend a goal blood sugar range 140-180 mg/dl for the majority of critically ill & non-critically ill patients. However, more stringent targets may be selected in individual cases. Will utilize more stringent goal range of 120-160mg/dl based on age. PLAN FOR INPATIENT GLYCEMIC CONTROL: Change Lantus dosing based on BSG - basal needs will be changing with rapid step down in steroid dosing. Tighten SSI. Order A1c. * Holding outpatient oral diabetes medications * Basal insulin with LANTUS SQ BID - dosing based on BSG d/t rapid steroid taper * IF BSG 120mg/dl or below --> Do not give Lantus * If BSG 121-180mg/dl --> Give Lantus 15 units * If BSG 181mg/dl or above --> Give Lantus 20 units * Correctional Insulin with NOVOLOG per scale ACHS or Q6hrs while NPO * Goal Range: Low 120 mg/dL - High 160 mg/dL * Correction Factor: 20 mg/dL/unit * Nutritional / Prandial insulin per carb ratio of 1 unit per 8 grams CHO consumed * A1c with AM labs tomorrow. * Please note that the plan above was derived based on current level of insulin resistance and hospital stress. These recommendations are appropriate for inpatient admission only. Plan of care upon discharge will need to be reassessed to avoid potential outpatient hypo/hyperglycemia. Thank you.
--- NOTE | 2016-09-18 18:18 | Pulmonology Progress Note ---
Pulmonary Progress Note Date of Service Sep 18, 2016. Attending Jhonny Sagastume Subjective Patient is much improved over the last 24 hours but still notes she is greatly below her baseline for ambulation. Objective Patient able to complete full sentences today showing no signs of increased work of breathing. Vital signs: Reviewed and stable on 2 L nasal cannula Respiratory: Decreased breath sounds bilaterally minimal expiratory wheezing Cardiac: S1 and S2 distant heart sounds but regular rate and rhythm Extremities: No clubbing cyanosis or edema noted Oximetry study: Total recording time 7 hours 46 minutes Lung is continuous time with saturations less than 89% was 6 minutes 4 seconds Medications: #1 methylprednisolone #2 Spiriva #3 Symbicort 160/4.5 #4 doxycycline 100 mg every 12 #5 Roflumilast 500 g by mouth daily Assessment & Plan 75-year-old female with acute on chronic respiratory insufficiency: #1 COPD: --Medical regimen would continue at this time this patient still notes dramatic difference in her baseline dyspnea on exertion. Continue to monitor and reevaluate in 24 hours. --Gold Standards: Spiriva, Symbicort, Roflumilast --Once again agree with doxycycline and possible rotation with erythromycin for COPD fracture in the future. --Patient did meet requirements for BiPAP as she had a sustained desaturation below or equal to 88% for greater than 5 minutes. We have talked and she understands she is a candidate for NIV #2 Pulmonary Nodule: Once again left upper lobe apical nodule noted. Previous CTs of the thorax pending for review. Data Medications: Current Inpatient Medications Medications (Trade) Dose Ordered Sig/Leah Route Start Time Stop Time Status Last Admin Dose Admin Acetaminophen (Tylenol Tab) 650 mg Q4H PRN PO 09/16/16 22:00 10/16/16 21:59 09/17/16 22:46 650 MG Nitroglycerin (Nitrostat Tab) 0.4 mg UD PRN SL 09/16/16 22:00 10/16/16 21:59 Insulin Aspart (novoLOG ASPART) SLIDING SCALE If C... ACHS SC 09/17/16 06:30 10/15/16 06:29 09/18/16 17:40 7 UNITS Glucose (Glucose 40% Gel) 15-30 GRAMS 15 GRAMS... UD PRN PO 09/16/16 22:00 10/16/16 21:59 Glucose (Glucose Chew Tab) 4-8 Tablets 4 Tabl... UD PRN PO 09/16/16 22:00 10/16/16 21:59 Dextrose (Dextrose 50% 50ML Syringe) 25-50ML OF 50% DW IV FOR... UD PRN IV 09/16/16 22:00 10/16/16 21:59 Glucagon (Glucagon Inj) 1 mg UD PRN SQ 09/16/16 22:00 10/16/16 21:59 Tramadol HCl (Ultram Tab) 25 mg Q6H PRN PO 09/16/16 22:00 10/16/16 21:59 09/17/16 12:40 25 MG Ondansetron HCl (Zofran Inj) 4 mg Q6H PRN IV 09/16/16 22:00 10/16/16 21:59 Lorazepam (Ativan Inj) 0.5 mg Q4H PRN IV 09/16/16 22:00 10/16/16 21:59 Morphine Sulfate (MoRPHine SULFATE INJ) 4 mg Q6H PRN IV 09/16/16 22:00 09/30/16 21:59 Alprazolam (Xanax Tab) 0.5 mg BID PO 09/17/16 09:00 10/17/16 08:59 09/18/16 08:03 0.5 MG Roflumilast (Daliresp Tab) 500 mcg DAILY PO 09/17/16 09:00 10/17/16 08:59 09/18/16 08:01 500 MCG Venlafaxine HCl (effeXOR EXTENDED REL CAP) 150 mg DAILY PO 09/17/16 09:00 10/17/16 08:59 09/18/16 08:01 150 MG Venlafaxine HCl (effeXOR EXTENDED REL CAP) 37.5 mg DAILY PO 09/17/16 09:00 10/17/16 08:59 09/18/16 08:01 37.5 MG Pantoprazole Sodium (Protonix Tab) 40 mg DAILY PO 09/17/16 09:00 10/17/16 08:59 09/18/16 08:01 40 MG Albuterol/ Ipratropium 3 ml 3 ml Q2H PRN INH 09/16/16 22:00 10/16/16 21:59 Doxycycline Hyclate/Dextrose (Vibramycin IV/ D5 100ml) 110 ml @ 50 mls/hr Q12H IV 09/17/16 12:00 09/23/16 23:59 09/18/16 12:03 50 MLS/HR Guaifenesin (Mucinex Contr Rel Tab) 600 mg Q12H PO 09/17/16 09:00 10/17/16 08:59 09/18/16 08:01 600 MG Clotrimazole 1 fadi 1 fadi [id number] MT 09/16/16 23:00 09/26/16 22:59 09/18/16 17:37 1 FADI Lorazepam/Syringe (Ativan Inj/ Syringe) 1 ml @ 1 mls/min Q4H PRN IV 09/17/16 02:00 10/17/16 01:59 Methylprednisolone (Medrol Tab) 8 mg HS PO 09/18/16 21:00 09/18/16 21:01 Methylprednisolone (Medrol Tab) 4 mg 07,13,18,21 PO 09/19/16 07:00 09/19/16 21:01 Methylprednisolone (Medrol Tab) 4 mg 07,13,21 PO 09/20/16 07:00 09/20/16 21:01 Methylprednisolone (Medrol Tab) 4 mg 07,21 PO 09/21/16 07:00 09/21/16 21:01 Methylprednisolone (Medrol Tab) 4 mg 07 PO 09/22/16 07:00 09/22/16 07:01 T[address] [place] (Spiriva Handihaler Inhaler) 1 puff QAM INH 09/18/16 09:00 10/18/16 08:59 09/18/16 07:59 1 PUFF Budesonide/ Formoterol Fumarate (Symbicort 160/ 4.5 Inh) 2 puffs BID INH 09/17/16 21:00 10/17/16 20:59 09/18/16 07:56 2 PUFFS Insulin Glargine (Lantus Solostar Pen) see protocol text BID SC 09/18/16 21:00 10/18/16 20:59 Miscellaneous Information (Consult Glycemic Management Pharmacy) 1 ea UD PRN N/A 09/18/16 11:59 10/18/16 11:58 Insulin Aspart (novoLOG ASPART) SLIDING SCALE If C... TODAY@0200 MO 09/19/16 02:00 09/19/16 02:01 I & O: 24-Hour Column 09/18/16 08:00 Intake Total 2924 ml Balance 2924 ml Vital Signs: Date Time Temp Pulse Resp B/P Pulse Ox O2 Delivery O2 Flow Rate FiO2 09/18/16 16:00 96 Nasal Cannula 2.0 09/18/16 15:04 36.8 72 16 156/75 94 Nasal Cannula 2.0 09/18/16 12:00 94 Nasal Cannula 2.0 09/18/16 11:19 36.5 67 16 147/70 95 Nasal Cannula 2.0 09/18/16 08:00 95 Nasal Cannula 2.0 09/18/16 07:16 36.7 73 16 121/51 95 Nasal Cannula 2.0 09/18/16 04:40 36.4 82 18 124/66 95 Nasal Cannula 2.0 Humidified Oxygen 09/18/16 04:00 Nasal Cannula 5.0 09/18/16 00:00 Nasal Cannula 5.0 09/17/16 23:21 37.1 80 20 124/69 93 Nasal Cannula Humidified Oxygen 09/17/16 21:35 36.7 85 20 120/71 89 09/17/16 20:35 36.5 87 20 129/72 93 2.0 09/17/16 20:05 37.3 83 20 132/71 94 2.0 09/17/16 20:00 92 Nasal Cannula 2.0 09/17/16 19:35 37.0 91 20 121/67 93 2.0 09/17/16 19:20 37.0 79 20 124/60 97 2.0 09/17/16 19:17 82 18 96 Nasal Cannula 2.0 09/17/16 19:03 36.7 88 20 115/68 99 09/17/16 18:25 36.7 88 18 116/68 93 Laboratory Results: Last 24 Hours Test 09/17/16 20:02 09/17/16 23:00 09/18/16 06:27 09/18/16 07:24 Bedside Glucose 199 mg/dl 218 mg/dl Hemoglobin 9.0 g/dL 9.2 g/dL Hematocrit 29.5 % 31.6 % White Blood Count 13.49 K/uL Red Blood Count 4.50 M/uL Mean Corpuscular Volume 70.2 fL Mean Corpuscular Hemoglobin 20.4 pg Mean Corpuscular Hemoglobin Concent 29.1 g/dl Platelet Count 179 K/uL Mean Platelet Volume 9.1 fL Neutrophils (%) (Auto) 84.0 % Lymphocytes (%) (Auto) 8.8 % Monocytes (%) (Auto) 6.4 % Eosinophils (%) (Auto) 0.1 % Basophils (%) (Auto) 0.1 % Neutrophils # (Auto) 11.34 K/uL Lymphocytes # (Auto) 1.19 K/uL Monocytes # (Auto) 0.86 K/uL Eosinophils # (Auto) 0.01 K/uL Basophils # (Auto) 0.01 K/uL RDW Standard Deviation 48.9 fL RDW Coefficient of Variation 19.3 % Immature Granulocyte % (Auto) 0.6 % Immature Granulocyte # (Auto) 0.08 K/uL Large Platelets 1+ Hypochromasia PRESENT Microcytosis PRESENT Tear Drop Cells 1+ Sodium Level 142 mmol/L Potassium Level 4.5 mmol/L Chloride Level 107 mmol/L Carbon Dioxide Level 27 mmol/L Anion Gap 8.0 mmol/L Blood Urea Nitrogen 18 mg/dl Creatinine 0.70 mg/dl Est Creatinine Clear Calc Drug Dose 95.2 ml/min Estimated GFR () 104.6 Estimated GFR (Non- 90.3 BUN/Creatinine Ratio 25.6 Random Glucose 222 mg/dl Calcium Level 8.3 mg/dl Magnesium Level 2.3 mg/dl Test 09/18/16 11:33 09/18/16 16:40 Bedside Glucose 217 mg/dl 152 mg/dl
[2016-09-18] MEDS: TRAMADOL HCL 50 MG TAB PO PRN (20:02)
[2016-09-18] MEDS ORDERED: METHYLPREDNISOLONE 4 MG TAB PO SCH (21:00)
[2016-09-19] VITALS (10 sets, daily range): BP systolic 118–165; BP diastolic 55–80; PULSE 64–92; TEMP 36.4–36.8; O2SAT 92–98
[2016-09-19] MEDS: DOXYCYCLINE IV 100 MG in DEXTROSE 5% 100ML 100 ML IV SCH ×2 (00:15→13:29)
[2016-09-19] MEDS: CLOTRIMAZOLE 10 MG TROCHE MT SCH ×6 (00:15→20:28)
[2016-09-19] MEDS ORDERED: INSULIN ASPART 100 UNITS/ML 3 ML PEN SC SCH (02:00)
[2016-09-19 06:46] LABS: BASO % 0.1 %; BASO ABS # 0.01 K/uL (0-0.2); EOS % 0.2 %; HEMATOCRIT 33.2 % (37-47); IG% 0.7 %; LYMPH % 12.6 %; LYMPH ABS # 1.34 K/uL (1.2-3.4); MEAN CELL VOLUME 70.3 fL (80-100); MEAN CORPUSCULAR HEMOGLOBIN 20.6 pg (25-34); MEAN CORPUSCULAR HGB CONC 29.2 g/dl (32-36); MEAN PLATELET VOLUME 9.3 fL (7.4-10.4); MONO % 6.8 %; NEUT % 79.6 %; PLATELET COUNT 198 K/uL (130-400); RED BLOOD COUNT 4.72 M/uL (4.2-5.4); WHITE BLOOD COUNT 10.65 K/uL (4.8-10.8)
[2016-09-19 07:17] LABS: BUN/CREATININE RATIO 24.7 (10-20); CALCIUM 8.5 mg/dl (8.5-10.1); CREATININE 0.69 mg/dl (0.60-1.20); MAGNESIUM 2.1 mg/dl (1.8-2.4)
[2016-09-19 07:35] LABS: ANISOCYTOSIS PRESENT; COMPLETE YES; MICROCYTOSIS PRESENT; OVALOCYTES 1+; POLYCHROMASIA 1+; SPHEROCYTE 1+
[2016-09-19] MEDS: METHYLPREDNISOLONE 4 MG TAB PO SCH ×4 (07:50→20:26)
[2016-09-19] MEDS: BUDESONIDE/FORMOTEROL FUMARATE 160/4.5 60 PUFFS/INHALER INH SCH ×2 (07:51→20:25)
[2016-09-19] MEDS: TIOTROPIUM BROMIDE 5 PUFF/90 MCG INH INH SCH (07:52)
[2016-09-19] MEDS: ROFLUMILAST 500 MCG TAB PO SCH (07:53)
[2016-09-19] MEDS: VENLAFAXINE HCL XR 37.5 MG CAPXR PO SCH (07:53)
[2016-09-19] MEDS: VENLAFAXINE HCL XR 150 MG CAPXR PO SCH (07:53)
[2016-09-19] MEDS: GUAIFENESIN 600 MG TABCR PO SCH ×2 (07:54→20:26)
[2016-09-19] MEDS: ALPRAZOLAM 0.5 MG TAB PO SCH ×2 (07:55→20:37)
[2016-09-19] MEDS: PANTOprazole SOD 40 MG TAB PO SCH (07:56)
[2016-09-19] MEDS: INSULIN ASPART 100 UNITS/ML 3 ML PEN SC SCH ×4 (08:25→20:26)
[2016-09-19] MEDS: INSULIN GLARGINE SOLOSTAR 100 UNITS/ML 3 ML PEN SC SCH ×2 (08:26→21:15)
--- NOTE | 2016-09-19 08:44 | Progress Note ---
Subjective Date of Service: Sep 19, 2016. Subjective Pt evaluation today including: conversation w/ patient, physical exam, lab review, review of studies, review of inpatient medication list Saw/examined the patient in room 278 Doing much better; her breathing status has improved Had some coughing and sputum production last night No other problems/issues to note Problem List Medical Problems: (1) COPD exacerbation Status: Acute (2) Guaiac positive stools Status: Acute (3) Symptomatic anemia Status: Acute Review of Systems Constitutional: No chills, No fever Respiratory: + cough, + shortness of breath, + sputum, No dyspnea at rest, No dyspnea on exertion, No hemoptysis, No wheezing Cardiac: No chest pain, No edema, No palpitations Abdomen: No diarrhea, No nausea, No pain, No vomiting Female : No dysuria, No urinary frequency Medications Current Inpatient Medications Medications (Trade) Dose Ordered Sig/Leah Route Start Time Stop Time Status Last Admin Dose Admin Acetaminophen (Tylenol Tab) 650 mg Q4H PRN PO 09/16/16 22:00 10/16/16 21:59 09/17/16 22:46 650 MG Nitroglycerin (Nitrostat Tab) 0.4 mg UD PRN SL 09/16/16 22:00 10/16/16 21:59 Insulin Aspart (novoLOG ASPART) SLIDING SCALE If C... ACHS SC 09/17/16 06:30 10/15/16 06:29 09/19/16 08:25 7 UNITS Glucose (Glucose 40% Gel) 15-30 GRAMS 15 GRAMS... UD PRN PO 09/16/16 22:00 10/16/16 21:59 Glucose (Glucose Chew Tab) 4-8 Tablets 4 Tabl... UD PRN PO 09/16/16 22:00 10/16/16 21:59 Dextrose (Dextrose 50% 50ML Syringe) 25-50ML OF 50% DW IV FOR... UD PRN IV 09/16/16 22:00 10/16/16 21:59 Glucagon (Glucagon Inj) 1 mg UD PRN SQ 09/16/16 22:00 10/16/16 21:59 Tramadol HCl (Ultram Tab) 25 mg Q6H PRN PO 09/16/16 22:00 10/16/16 21:59 09/18/16 20:02 25 MG Ondansetron HCl (Zofran Inj) 4 mg Q6H PRN IV 09/16/16 22:00 10/16/16 21:59 Lorazepam (Ativan Inj) 0.5 mg Q4H PRN IV 09/16/16 22:00 10/16/16 21:59 Morphine Sulfate (MoRPHine SULFATE INJ) 4 mg Q6H PRN IV 09/16/16 22:00 09/30/16 21:59 Alprazolam (Xanax Tab) 0.5 mg BID PO 09/17/16 09:00 10/17/16 08:59 09/19/16 07:55 0.5 MG Roflumilast (Daliresp Tab) 500 mcg DAILY PO 09/17/16 09:00 10/17/16 08:59 09/19/16 07:53 500 MCG Venlafaxine HCl (effeXOR EXTENDED REL CAP) 150 mg DAILY PO 09/17/16 09:00 10/17/16 08:59 09/19/16 07:53 150 MG Venlafaxine HCl (effeXOR EXTENDED REL CAP) 37.5 mg DAILY PO 09/17/16 09:00 10/17/16 08:59 09/19/16 07:53 37.5 MG Pantoprazole Sodium (Protonix Tab) 40 mg DAILY PO 09/17/16 09:00 10/17/16 08:59 09/19/16 07:56 40 MG Albuterol/ Ipratropium 3 ml 3 ml Q2H PRN INH 09/16/16 22:00 10/16/16 21:59 Doxycycline Hyclate/Dextrose (Vibramycin IV/ D5 100ml) 110 ml @ 50 mls/hr Q12H IV 09/17/16 12:00 09/23/16 23:59 09/19/16 00:15 50 MLS/HR Guaifenesin (Mucinex Contr Rel Tab) 600 mg Q12H PO 09/17/16 09:00 10/17/16 08:59 09/19/16 07:54 600 MG Clotrimazole 1 fadi 1 fadi [id number] MT 09/16/16 23:00 09/26/16 22:59 09/19/16 07:50 1 FADI Lorazepam/Syringe (Ativan Inj/ Syringe) 1 ml @ 1 mls/min Q4H PRN IV 09/17/16 02:00 10/17/16 01:59 Methylprednisolone (Medrol Tab) 4 mg 07,13,18,21 PO 09/19/16 07:00 09/19/16 21:01 09/19/16 07:50 4 MG Methylprednisolone (Medrol Tab) 4 mg 07,13,21 PO 09/20/16 07:00 09/20/16 21:01 Methylprednisolone (Medrol Tab) 4 mg 07,21 PO 09/21/16 07:00 09/21/16 21:01 Methylprednisolone (Medrol Tab) 4 mg 07 PO 09/22/16 07:00 09/22/16 07:01 Tiotropium [place] (Spiriva Handihaler Inhaler) 1 puff QAM INH 09/18/16 09:00 10/18/16 08:59 09/19/16 07:52 1 PUFF Budesonide/ Formoterol Fumarate (Symbicort 160/ 4.5 Inh) 2 puffs BID INH 09/17/16 21:00 10/17/16 20:59 09/19/16 07:51 2 PUFFS Insulin Glargine (Lantus Solostar Pen) see protocol text BID SC 09/18/16 21:00 10/18/16 20:59 09/19/16 08:26 12 UNIT Miscellaneous Information (Consult Glycemic Management Pharmacy) 1 ea UD PRN N/A 09/18/16 11:59 10/18/16 11:58 Bisacodyl (Dulcolax Tab) 10 mg 1600 ONCE PO 09/19/16 16:00 09/19/16 16:01 Polyethylene (Miralax Powder Packet) 68 gm 1600 ONCE PO 09/19/16 16:00 09/19/16 16:01 Bisacodyl (Dulcolax Tab) 10 mg 2300 ONCE PO 09/19/16 23:00 09/19/16 23:01 Polyethylene (Miralax Powder Packet) 68 gm 2300 ONCE PO 09/19/16 23:00 09/19/16 23:01 Objective Vital Signs Date Time Temp Pulse Resp B/P Pulse Ox O2 Delivery O2 Flow Rate FiO2 09/19/16 07:35 36.7 82 20 145/73 96 Nasal Cannula 2.0 2/5/17 03:53 36.7 76 18 118/73 96 Nasal Cannula 2.0 09/19/16 00:00 Nasal Cannula 2.0 09/18/16 23:07 36.9 88 16 155/75 94 09/18/16 20:00 Nasal Cannula 2.0 09/18/16 19:15 36.6 76 20 163/71 97 Nasal Cannula 2.0 Humidified Oxygen 09/18/16 16:00 96 Nasal Cannula 2.0 09/18/16 15:04 36.8 72 16 156/75 94 Nasal Cannula 2.0 09/18/16 12:00 94 Nasal Cannula 2.0 09/18/16 11:19 36.5 67 16 147/70 95 Nasal Cannula 2.0 Physical Exam General Appearance: no apparent distress Respiratory/Chest: no respiratory distress, no accessory muscle use, + decreased breath sounds Cardiovascular: regular rate, rhythm, no edema, no murmur Abdomen: normal bowel sounds, non tender, soft Extremities: normal inspection, no pedal edema Neurologic/Psychiatric: no motor/sensory deficits, alert, normal mood/affect Laboratory Results Last 24 Hours Test 09/18/16 11:33 09/18/16 16:40 09/18/16 21:03 09/19/16 02:00 Bedside Glucose 217 mg/dl 152 mg/dl 141 mg/dl 226 mg/dl Test 09/19/16 06:10 09/19/16 07:25 White Blood Count 10.65 K/uL Red Blood Count 4.72 M/uL Hemoglobin 9.7 g/dL Hematocrit 33.2 % Mean Corpuscular Volume 70.3 fL Mean Corpuscular Hemoglobin 20.6 pg Mean Corpuscular Hemoglobin Concent 29.2 g/dl Platelet Count 198 K/uL Mean Platelet Volume 9.3 fL Neutrophils (%) (Auto) 79.6 % Lymphocytes (%) (Auto) 12.6 % Monocytes (%) (Auto) 6.8 % Eosinophils (%) (Auto) 0.2 % Basophils (%) (Auto) 0.1 % Neutrophils # (Auto) 8.49 K/uL Lymphocytes # (Auto) 1.34 K/uL Monocytes # (Auto) 0.72 K/uL Eosinophils # (Auto) 0.02 K/uL Basophils # (Auto) 0.01 K/uL RDW Standard Deviation 49.9 fL RDW Coefficient of Variation 20.0 % Immature Granulocyte % (Auto) 0.7 % Immature Granulocyte # (Auto) 0.07 K/uL Polychromasia 1+ Anisocytosis PRESENT Microcytosis PRESENT Spherocytes 1+ Ovalocytes 1+ Sodium Level 142 mmol/L Potassium Level 4.0 mmol/L Chloride Level 105 mmol/L Carbon Dioxide Level 28 mmol/L Anion Gap 9.0 mmol/L Blood Urea Nitrogen 17 mg/dl Creatinine 0.69 mg/dl Est Creatinine Clear Calc Drug Dose 96.0 ml/min Estimated GFR () 105.1 Estimated GFR (Non- 90.7 BUN/Creatinine Ratio 24.7 Random Glucose 174 mg/dl Calcium Level 8.5 mg/dl Magnesium Level 2.1 mg/dl Bedside Glucose 162 mg/dl Assessment and Plan This is a 65 year old female with PMH of COPD, chronic respiratory failure on continuous O2 therapy, DM2, chronic anemia, depression/anxiety presents with worsening shortness of breath Acute on Chronic Respiratory Failure Acute COPD exacerbation 09/19 appreciate pulm input she is feeling much better, will continue current management 09/18 patient presented with acute on chronic respiratory failure appreciate pulmonology input restart symbicort and spiriva cont PO steroids cont. doxycycline 2/ patient has chronic respiratory failure Uses 2L O2 continuously at baseline presented with worsening shortness of breath received IV solu-medrol in the ER received doxycycline now on PO solu-medrol continue nebulizers PRN Continue Spiriva, and continue inhalers on discharge Anemia 2/ Patient seems stable will change to clear liquid bowel prep - miralax and dulcolax possible EGD and colonoscopy in AM as per GI 09/18 s/p two units PRBCs Hgb >9 planned scopes on Tuesday, may need to push back to Tuesday depending on respiratory status 2/3 likely blood loss positive stool guaiac appreciate GI input - possible colonoscopy or EGD on Wednesday 09/20 Hgb dropped < 8 will transfuse two units PRBCs due to her shortness of breath recheck H/H four hours post transfusion DM2 2 increased Lantus to 30 units BID tighter sliding scale glycemic control consultation 2/3 uncontrolled with an A1c > 8.0% currently receiving Lantus 25 units BID insulin sliding scale will need tighter control as outpatient monitor BSGs with steroid use Depression/Anxiety continue home medications DVT ppx SCDs FULL CODE
[2016-09-19] MEDS: ALBUT/IPRATROP 3MG/0.5MG NEB 3 ML VIAL INH PRN (11:17)
--- NOTE | 2016-09-19 13:36 | Pharmacy Progress Note ---
Glycemic Control: Progress Nt Date of Service Sep 19, 2016. Scope Glycemic Pharmacist consulted by Dr Dyer on 09/18/16 for glycemic control and to write orders per [facility] inpatient glycemic control protocol. Objective Accuchecks BSG (last 24hrs): Test 09/18/16 16:40 09/18/16 21:03 09/19/16 02:00 09/19/16 06:10 Bedside Glucose 152 mg/dl (70-90) 141 mg/dl (70-90) 226 mg/dl (70-90) Random Glucose 174 mg/dl (70-99) Test 09/19/16 07:25 09/19/16 11:26 Bedside Glucose 162 mg/dl (70-90) 153 mg/dl (70-90) Laboratory Data (last 24hrs) Test 09/19/16 06:10 Anion Gap 9.0 mmol/L BUN/Creatinine Ratio 24.7 Blood Urea Nitrogen 17 mg/dl Creatinine 0.69 mg/dl Potassium Level 4.0 mmol/L Sodium Level 142 mmol/L White Blood Count 10.65 K/uL Red Blood Count 4.72 M/uL Hemoglobin 9.7 g/dL Hematocrit 33.2 % Mean Corpuscular Volume 70.3 fL Mean Corpuscular Hemoglobin 20.6 pg Mean Corpuscular Hemoglobin Concent 29.2 g/dl Platelet Count 198 K/uL Mean Platelet Volume 9.3 fL Neutrophils (%) (Auto) 79.6 % Lymphocytes (%) (Auto) 12.6 % Monocytes (%) (Auto) 6.8 % Eosinophils (%) (Auto) 0.2 % Basophils (%) (Auto) 0.1 % Neutrophils # (Auto) 8.49 K/uL Lymphocytes # (Auto) 1.34 K/uL Monocytes # (Auto) 0.72 K/uL Eosinophils # (Auto) 0.02 K/uL Basophils # (Auto) 0.01 K/uL HbA1c: Test 09/19/16 06:10 Recent Pertinent Medications Outpatient Anti-diabetic Regimen: * Metformin 500mg PO BID The patient is currently receiving: * Basal insulin: Lantus SQ every 12 hours - dosing based on BSG d/ t decreasing steroid dosing If BSG 120mg/dl or below --> Do not give Lantus If BSG 121-180mg/dl --> Give Lantus 12 units If BSG 181mg/dl or greater --> Give Lantus 15 units * Correctional Insulin: Novolog Correction per scale ACHS Goal Range: Low 120 mg/dL - High 160 mg/dL Correction Factor: 20 mg/dL/unit * Prandial insulin: Per carb ratio of 1 unit per 8 grams CHO consumed * Oral Agents: On hold for admission Risk Factors for Insulin Resistance: * Steroids: Medrol dose pack/taper * Infection * Diet Assessment & Plan ASSESSMENT: * 65yo T2DM female with unknown degree of outpatient control - A1c unknown. Ordered per protocol. * Pt is maintained on oral agent monotherapy with metformin as an outpatient. Metformin held on admission and initiated on SQ basal bolus insulin regimen for steroid induced hyperglycemia. * Pt with SEVERE hyperglycemia on 09/16 -09/17 secondary to Solu-medrol 125mg IV x 1 in ED and starting Medrol dose pack * Medrol dose pack starts with RTC dosing of methylprednisolone at 24mg/day --> dose titrates by 4mg per day daily. * Pt received 20mg methylprednisolone 09/18 --> required 58 units of insulin for the day, BSGs ranging 141-218mg/dl. Empirically decreased Lantus dosing in anticipation of step down in steroid dosing for 09/19 * 09/19/16: Pt will receive 16mg of methylprednisolone. Expect total daily dose of insulin to be less than 58 units/day like 09/18. Will continue to empirically decrease insulin regimen as Medrol Dose pack tapers. * ADA & AACE recommend a goal blood sugar range 140-180 mg/dl for the majority of critically ill & non-critically ill patients. However, more stringent targets may be selected in individual cases. Will utilize more stringent goal range of 120-160mg/dl based on age. PLAN FOR INPATIENT GLYCEMIC CONTROL: Continue Lantus dosing based on BSG - basal needs will be changing with rapid step down in steroid dosing. Continue aggressive bolus insulin for steroid induced hyperglycemia. Assess discharge needs after A1c results. * Hold outpatient oral diabetes medications * Basal insulin with LANTUS SQ BID - dosing based on BSG d/t rapid steroid taper * IF BSG 120mg/dl or below --> Do not give Lantus * If BSG 121-180mg/dl --> Give Lantus 12 units * If BSG 181mg/dl or above --> Give Lantus 15 units * Correctional Insulin with NOVOLOG per scale ACHS or Q6hrs while NPO * Goal Range: Low 120 mg/dL - High 160 mg/dL * Correction Factor: 20 mg/dL/unit * Nutritional / Prandial insulin per carb ratio of 1 unit per 8 grams CHO consumed * A1c with AM labs tomorrow. * Please note that the plan above was derived based on current level of insulin resistance and hospital stress. These recommendations are appropriate for inpatient admission only. Plan of care upon discharge will need to be reassessed to avoid potential outpatient hypo/hyperglycemia. Thank you.
[2016-09-19] MEDS: TRAMADOL HCL 50 MG TAB PO PRN (14:50)
[2016-09-19] MEDS ORDERED: BISACODYL 5 MG TABEC PO ONE ×2 (16:00→23:00)
[2016-09-19] MEDS ORDERED: POLYETHYLENE (MIRALAX) 17 GM PACK PO ONE ×2 (16:00→23:00)
[2016-09-19] MEDS: LORAZEPAM INJ 0.5 MG in SYRINGE 0.75 ML IV PRN (19:15)
[2016-09-20] MEDS: DOXYCYCLINE IV 100 MG in DEXTROSE 5% 100ML 100 ML IV SCH ×3 (01:07→23:50)
[2016-09-20 04:28] VITALS: BP 132/77; PULSE 75; TEMP 36.5; O2SAT 96
--- NOTE | 2016-09-20 07:01 | Clinical Documentation Query ---
CLINICAL DOCUMENTATION QUERY Dr. ORTEZ, Please document acuity of pt's blood loss anemia. In your clinical opinion is this patient being managed for: ( X ) Acute blood loss anemia ( X ) Chronic blood loss anemia ( ) Other explanation of clinical findings (Please Explain) ( ) Unable to determine (Please Define) ( ) Need to Discuss ( ) Not Agree The medical record reflects the following clinical findings, treatment, and risk factors. Clinical Indicators: 65 yo female presenting with Hgb 8.3, Hct 28.4 and heme + stools. PN 2/3 indicates anemia likely due to blood loss. Hgb/Hct dropped as low as 7.7/26.7. Treatment: 2 U PRBC's, recheck H/H following transfusion, GI consult, potential endoscopies once respiratory status improves. Risk Factors: chronic anemia, GI bleed Please clarify and document your clinical opinion in the progress notes and discharge summary. Terms such as "probable", "suspected", "likely", "questionable", "possible", or "still to be ruled out" are acceptable. IF IN AGREEMENT, YOU MUST DOCUMENT ABOVE DIAGNOSTIC STATEMENT IN DAILY PROGRESS NOTES AND DISCHARGE SUMMARY. This document is not part of the patient's record. Thank You, Tequila David, RN [phone]
[2016-09-20 07:27] VITALS: BP 170/75; PULSE 90; TEMP 36.4; O2SAT 94
[2016-09-20 07:35] LABS: ESTIMATED AVERAGE GLUCOSE 171 mg/dl; HA1C FLAG Normal (Normal)
[2016-09-20 07:55] LABS: HEMATOCRIT 37.2 % (37-47); MEAN CELL VOLUME 70.7 fL (80-100); MEAN CORPUSCULAR HEMOGLOBIN 20.3 pg (25-34); MEAN CORPUSCULAR HGB CONC 28.8 g/dl (32-36); MEAN PLATELET VOLUME 9.2 fL (7.4-10.4); PLATELET COUNT 231 K/uL (130-400); RED BLOOD COUNT 5.26 M/uL (4.2-5.4); WHITE BLOOD COUNT 11.42 K/uL (4.8-10.8)
--- NOTE | 2016-09-20 07:56 | PROGRESS NOTE ---
DATE: 09/20/2016 The patient is comfortable this morning, lying on her left side, sleeping. She is not wearing CPAP. She is on oxygen at 2 liters per minute, oxygen saturation 96%, respiratory rate 16, while sleeping. She states she feels considerably better than she did at the time of admission. She has a history of depression, has been on Effexor and that has been fairly stable. The Daliresp probably should be discontinued because of the incidence of depression. She has not had any significant bronchitis. PHYSICAL EXAMINATION: VITAL SIGNS: Stable. She is afebrile. Blood pressure 132/77, her weight is 97.2 kilograms I\T\O noted. According to the nurses' notes she had a fairly good night last night. Denied any chest pain, has some shortness of breath with activity. She was allowed out of bed the last night. She was scheduled for a colonoscopy, apparently, today. HEENT: Unremarkable. There is no neck vein distention or HJR. No nodes are noted. HEART: Regular rate and rhythm. No murmurs are heard. LUNGS: Reveal a few crackles at the right base, posterior; otherwise, are clear. ABDOMEN: Soft, nontender. No organomegaly noted. EXTREMITIES: She has no cyanosis, clubbing or edema. LABORATORY DATA: The blood gas on the 2nd is noted. It revealed hypercapnia and hypoxemia. Sugars have been in the 116-162 range. PRP is unremarkable. Magnesium was 2.1. Hemoglobin and hematocrit are 99.7 and 33.2% with microcytic hyperchromic indices. Sputum Gram stain revealed a few epithelial cells and a moderate number of inflammatory cells with some gram-positive cocci. The chest film revealed a possible nodular density, 9 mm, in the left upper lobe. IMPRESSION: 1. Respiratory failure with hypercapnia and hypoxemia. 2. Chronic obstructive lung disease with exacerbation. 3. Diabetes mellitus. 4. Anemia with iron deficiency. RECOMMENDATIONS: 1. At this point, I would continue with her present medications. Continue to taper down the Medrol. 2. Continue on the Symbicort 160/4.5 two puffs b.i.d. with a mouth rinse and Spiriva 1 inhalation of the capsule type daily. 3. Discontinue the Daliresp because of the history of depression. I think the Mucinex could be discontinued as well, since she has not had much sputum production. 4. DVT prophylaxis with SCDs will be recommended. We discussed getting up and out of bed as much as possible and she understands. I would start her on albuterol by metered dose inhaler, 2 puffs 4 times a day p.r.n., as well. Overall, she is stable.
[2016-09-20] MEDS: ONDANSETRON INJ 2 MG/ML 2 ML VIAL IV PRN ×3 (08:04→18:37)
[2016-09-20] MEDS: INSULIN ASPART 100 UNITS/ML 3 ML PEN SC SCH ×4 (08:09→20:34)
[2016-09-20] MEDS: METHYLPREDNISOLONE 4 MG TAB PO SCH ×4 (08:09→21:10)
[2016-09-20] MEDS: CLOTRIMAZOLE 10 MG TROCHE MT SCH ×6 (08:09→23:50)
[2016-09-20] MEDS: INSULIN GLARGINE SOLOSTAR 100 UNITS/ML 3 ML PEN SC SCH ×2 (08:10→21:13)
[2016-09-20 08:11] LABS: CALCIUM 8.2 mg/dl (8.5-10.1); CREATININE 0.68 mg/dl (0.60-1.20); MAGNESIUM 2.1 mg/dl (1.8-2.4); POTASSIUM 3.4 mmol/L (3.5-5.1)
[2016-09-20] MEDS: VENLAFAXINE HCL XR 37.5 MG CAPXR PO SCH ×2 (08:11→16:40)
[2016-09-20] MEDS: ROFLUMILAST 500 MCG TAB PO SCH ×2 (08:11→16:39)
[2016-09-20] MEDS: VENLAFAXINE HCL XR 150 MG CAPXR PO SCH ×2 (08:11→16:40)
[2016-09-20] MEDS: GUAIFENESIN 600 MG TABCR PO SCH ×3 (08:11→21:10)
[2016-09-20] MEDS: ALPRAZOLAM 0.5 MG TAB PO SCH ×2 (08:11→21:09)
[2016-09-20] MEDS: PANTOprazole SOD 40 MG TAB PO SCH ×2 (08:11→16:40)
[2016-09-20 08:15] LABS: ANISOCYTOSIS PRESENT; BASO % 0.2 %; BASO ABS # 0.02 K/uL (0-0.2); COMPLETE YES; HYPOCHROMIA PRESENT; IG% 0.5 %; LYMPH % 23.8 %; LYMPH ABS # 2.72 K/uL (1.2-3.4); MONO % 10.5 %; SPHEROCYTE 1+
--- NOTE | 2016-09-20 10:25 | Gastroenterology Progress Note ---
Progress Note Date of Service: Sep 20, 2016 Subjective Pt evaluation today including: conversation w/ patient, physical exam, chart review, lab review Patient was seen and examined this morning. She reports that she was prepped for a colonoscopy last night per the primary team. She is concerned about the procedure as it was suggested last week as this procedure could be done as an outpatient as there was no signs of GI bleed. She denies BRBPR or melena. She reports her stomach is upset this morning and that she is hungry. Her SOB is minimally improved. She reports that she has been exhausted walking to and from the bathroom and is SOB after these activities. She denies fever, chills, chest pain. Review of Systems Constitutional: No chills, No fever Respiratory: + shortness of breath, No cough Cardiac: No chest pain, No edema Abdomen: + see HPI, No GI bleeding, No constipation, No diarrhea, No nausea, No pain, No vomiting Medications Current Inpatient Medications Medications (Trade) Dose Ordered Sig/Leah Route Start Time Stop Time Status Last Admin Dose Admin Acetaminophen (Tylenol Tab) 650 mg Q4H PRN PO 09/16/16 22:00 10/16/16 21:59 09/17/16 22:46 650 MG Nitroglycerin (Nitrostat Tab) 0.4 mg UD PRN SL 09/16/16 22:00 10/16/16 21:59 Insulin Aspart (novoLOG ASPART) SLIDING SCALE If C... ACHS SC 09/17/16 06:30 10/15/16 06:29 09/19/16 17:19 8 UNITS Glucose (Glucose 40% Gel) 15-30 GRAMS 15 GRAMS... UD PRN PO 09/16/16 22:00 10/16/16 21:59 Glucose (Glucose Chew Tab) 4-8 Tablets 4 Tabl... UD PRN PO 09/16/16 22:00 10/16/16 21:59 Dextrose (Dextrose 50% 50ML Syringe) 25-50ML OF 50% DW IV FOR... UD PRN IV 09/16/16 22:00 10/16/16 21:59 Glucagon (Glucagon Inj) 1 mg UD PRN SQ 09/16/16 22:00 10/16/16 21:59 Tramadol HCl (Ultram Tab) 25 mg Q6H PRN PO 09/16/16 22:00 10/16/16 21:59 09/19/16 14:50 25 MG Ondansetron HCl (Zofran Inj) 4 mg Q6H PRN IV 09/16/16 22:00 10/16/16 21:59 09/20/16 08:04 4 MG Lorazepam (Ativan Inj) 0.5 mg Q4H PRN IV 09/16/16 22:00 10/16/16 21:59 Morphine Sulfate (MoRPHine SULFATE INJ) 4 mg Q6H PRN IV 09/16/16 22:00 09/30/16 21:59 09/20/16 08:07 4 MG Alprazolam (Xanax Tab) 0.5 mg BID PO 09/17/16 09:00 10/17/16 08:59 09/19/16 20:37 0.5 MG Roflumilast (Daliresp Tab) 500 mcg DAILY PO 09/17/16 09:00 10/17/16 08:59 09/19/16 07:53 500 MCG Venlafaxine HCl (effeXOR EXTENDED REL CAP) 150 mg DAILY PO 09/17/16 09:00 10/17/16 08:59 09/19/16 07:53 150 MG Venlafaxine HCl (effeXOR EXTENDED REL CAP) 37.5 mg DAILY PO 09/17/16 09:00 10/17/16 08:59 09/19/16 07:53 37.5 MG Pantoprazole Sodium (Protonix Tab) 40 mg DAILY PO 09/17/16 09:00 10/17/16 08:59 09/19/16 07:56 40 MG Albuterol/ Ipratropium 3 ml 3 ml Q2H PRN INH 09/16/16 22:00 10/16/16 21:59 09/19/16 11:17 3 ML Doxycycline Hyclate/Dextrose (Vibramycin IV/ D5 100ml) 110 ml @ 50 mls/hr Q12H IV 09/17/16 12:00 09/23/16 23:59 09/20/16 01:07 50 MLS/HR Guaifenesin (Mucinex Contr Rel Tab) 600 mg Q12H PO 09/17/16 09:00 10/17/16 08:59 09/19/16 20:26 600 MG Clotrimazole 1 fadi 1 fadi [id number] MT 09/16/16 23:00 09/26/16 22:59 09/19/16 20:28 1 FADI Lorazepam/Syringe (Ativan Inj/ Syringe) 1 ml @ 1 mls/min Q4H PRN IV 09/17/16 02:00 10/17/16 01:59 09/19/16 19:15 1 MLS/MIN Methylprednisolone (Medrol Tab) 4 mg 07,13,21 PO 09/20/16 07:00 09/20/16 21:01 Methylprednisolone (Medrol Tab) 4 mg 07,21 PO 09/21/16 07:00 09/21/16 21:01 Methylprednisolone (Medrol Tab) 4 mg 07 PO 09/22/16 07:00 09/22/16 07:01 Tiotropium [place] (Spiriva Handihaler Inhaler) 1 puff QAM INH 09/18/16 09:00 10/18/16 08:59 09/19/16 07:52 1 PUFF Budesonide/ Formoterol Fumarate (Symbicort 160/ 4.5 Inh) 2 puffs BID INH 09/17/16 21:00 10/17/16 20:59 09/19/16 20:25 2 PUFFS Insulin Glargine (Lantus Solostar Pen) see protocol text BID SC 09/18/16 21:00 10/18/16 20:59 09/19/16 21:15 10 UNIT Miscellaneous Information (Consult Glycemic Management Pharmacy) 1 ea UD PRN N/A 09/18/16 11:59 10/18/16 11:58 Objective Vital Signs Date Time Temp Pulse Resp B/P Pulse Ox O2 Delivery O2 Flow Rate FiO2 09/20/16 07:27 36.4 90 20 170/75 94 2.0 09/20/16 04:28 36.5 75 18 132/77 96 Nasal Cannula 2.0 09/20/16 04:00 Nasal Cannula 2.0 09/20/16 00:00 Nasal Cannula 2.0 09/19/16 22:53 36.4 83 18 147/78 96 Nasal Cannula 2.0 Humidified Oxygen 09/19/16 20:16 36.6 92 20 153/65 92 Nasal Cannula 2.0 09/19/16 20:00 Nasal Cannula 2.0 09/19/16 16:00 93 Nasal Cannula 2.0 09/19/16 15:03 36.8 87 20 165/80 97 Nasal Cannula 2.0 09/19/16 12:00 94 Nasal Cannula 2.0 09/19/16 11:52 36.7 64 18 129/55 98 Room Air 09/19/16 11:18 80 18 96 Nasal Cannula 2.0 Physical Exam General Appearance: no apparent distress Eyes: PERRL ENT: hearing grossly normal Neck: supple, trachea midline Respiratory/Chest: + respiratory distress, + decreased breath sounds, + pertinent finding (patient is wearing O2 in bed, she is visible short of breath after with positional changes and takes about one minute to catch her breath ) Cardiovascular: regular rate, rhythm, no edema, no gallop, no JVD, no murmur Abdomen: normal bowel sounds, non tender, soft, no organomegaly, no pulsatile mass Neurologic/Psych: alert, normal mood/affect, oriented x 3 Skin: normal color, no jaundice, warm/dry, no rash Laboratory Results Last 24 Hours Test 09/19/16 11:26 09/19/16 16:07 09/19/16 20:24 09/20/16 06:53 Bedside Glucose 153 mg/dl 116 mg/dl 141 mg/dl White Blood Count 11.42 K/uL Red Blood Count 5.26 M/uL Hemoglobin 10.7 g/dL Hematocrit 37.2 % Mean Corpuscular Volume 70.7 fL Mean Corpuscular Hemoglobin 20.3 pg Mean Corpuscular Hemoglobin Concent 28.8 g/dl Platelet Count 231 K/uL Mean Platelet Volume 9.2 fL Neutrophils (%) (Auto) 64.0 % Lymphocytes (%) (Auto) 23.8 % Monocytes (%) (Auto) 10.5 % Eosinophils (%) (Auto) 1.0 % Basophils (%) (Auto) 0.2 % Neutrophils # (Auto) 7.31 K/uL Lymphocytes # (Auto) 2.72 K/uL Monocytes # (Auto) 1.20 K/uL Eosinophils # (Auto) 0.11 K/uL Basophils # (Auto) 0.02 K/uL RDW Standard Deviation 51.8 fL RDW Coefficient of Variation 20.7 % Immature Granulocyte % (Auto) 0.5 % Immature Granulocyte # (Auto) 0.06 K/uL Hypochromasia PRESENT Anisocytosis PRESENT Spherocytes 1+ Sodium Level 145 mmol/L Potassium Level 3.4 mmol/L Chloride Level 107 mmol/L Carbon Dioxide Level 28 mmol/L Anion Gap 10.0 mmol/L Blood Urea Nitrogen 10 mg/dl Creatinine 0.68 mg/dl Est Creatinine Clear Calc Drug Dose 96.1 ml/min Estimated GFR () 105.6 Estimated GFR (Non- 91.2 BUN/Creatinine Ratio 14.0 Random Glucose 84 mg/dl Calcium Level 8.2 mg/dl Magnesium Level 2.1 mg/dl Test 09/20/16 07:40 Bedside Glucose 98 mg/dl Assessment and Plan Ms. Sanchez is a 65 year old female who was admitted for respiratory failure with anemia. There were no s/s of GI bleed. HGB on admission was 8.3. She received 2 units of blood on 09/17. HGB has been trending up and today was 10.7. Will discuss with Dr. Moody about EGD/Colon today as the patient was prepped, is still experiencing respiratory complaints and is without any signs of GI bleed with upward trending HGB. Continue with current medication regimen Monitor stools Trend H&H, transfuse as needed. Attg addendum: I interviewed and examined pt. Pt without overt bleeding. The pt wishes to defer any further w/u of anemia. Will sign off, but please reconsult as needed.
[2016-09-20] MEDS ORDERED: NURSING VERBAL MED ORDER ONE (11:15)
[2016-09-20] MEDS: BUDESONIDE/FORMOTEROL FUMARATE 160/4.5 60 PUFFS/INHALER INH SCH ×2 (11:15→21:09)
[2016-09-20] MEDS: TIOTROPIUM BROMIDE 5 PUFF/90 MCG INH INH SCH (11:15)
[2016-09-20] MEDS ORDERED: ONDANSETRON INJ 2 MG/ML 2 ML VIAL IV ONE (11:45)
[2016-09-20 11:53] VITALS: BP 157/78; PULSE 85; TEMP 36.4; O2SAT 91
--- NOTE | 2016-09-20 11:58 | Progress Note ---
Subjective Date of Service: Sep 20, 2016. Subjective Pt evaluation today including: conversation w/ patient, physical exam, lab review, review of studies, review of inpatient medication list Saw/examined the patient in room 278 +nausea this morning, +headache Does not want any testing done today because she feels sick No significant shortness of breath, no chest pain Problem List Medical Problems: (1) COPD exacerbation Status: Acute (2) Guaiac positive stools Status: Acute (3) Symptomatic anemia Status: Acute Review of Systems Constitutional: No chills, No fever Respiratory: + cough, + shortness of breath, + sputum Cardiac: No chest pain, No edema, No palpitations Abdomen: + nausea, No diarrhea, No pain, No vomiting Medications Current Inpatient Medications Medications (Trade) Dose Ordered Sig/Leah Route Start Time Stop Time Status Last Admin Dose Admin Acetaminophen (Tylenol Tab) 650 mg Q4H PRN PO 09/16/16 22:00 10/16/16 21:59 09/17/16 22:46 650 MG Nitroglycerin (Nitrostat Tab) 0.4 mg UD PRN SL 09/16/16 22:00 10/16/16 21:59 Insulin Aspart (novoLOG ASPART) SLIDING SCALE If C... ACHS SC 09/17/16 06:30 10/15/16 06:29 09/19/16 17:19 8 UNITS Glucose (Glucose 40% Gel) 15-30 GRAMS 15 GRAMS... UD PRN PO 09/16/16 22:00 10/16/16 21:59 Glucose (Glucose Chew Tab) 4-8 Tablets 4 Tabl... UD PRN PO 09/16/16 22:00 10/16/16 21:59 Dextrose (Dextrose 50% 50ML Syringe) 25-50ML OF 50% DW IV FOR... UD PRN IV 09/16/16 22:00 10/16/16 21:59 Glucagon (Glucagon Inj) 1 mg UD PRN SQ 09/16/16 22:00 10/16/16 21:59 Tramadol HCl (Ultram Tab) 25 mg Q6H PRN PO 09/16/16 22:00 10/16/16 21:59 09/19/16 14:50 25 MG Ondansetron HCl (Zofran Inj) 4 mg Q6H PRN IV 09/16/16 22:00 10/16/16 21:59 09/20/16 11:15 4 MG Lorazepam (Ativan Inj) 0.5 mg Q4H PRN IV 09/16/16 22:00 10/16/16 21:59 Morphine Sulfate (MoRPHine SULFATE INJ) 4 mg Q6H PRN IV 09/16/16 22:00 09/30/16 21:59 09/20/16 08:07 4 MG Alprazolam (Xanax Tab) 0.5 mg BID PO 09/17/16 09:00 10/17/16 08:59 09/19/16 20:37 0.5 MG Roflumilast (Daliresp Tab) 500 mcg DAILY PO 09/17/16 09:00 10/17/16 08:59 09/19/16 07:53 500 MCG Venlafaxine HCl (effeXOR EXTENDED REL CAP) 150 mg DAILY PO 09/17/16 09:00 10/17/16 08:59 09/19/16 07:53 150 MG Venlafaxine HCl (effeXOR EXTENDED REL CAP) 37.5 mg DAILY PO 09/17/16 09:00 10/17/16 08:59 09/19/16 07:53 37.5 MG Pantoprazole Sodium (Protonix Tab) 40 mg DAILY PO 09/17/16 09:00 10/17/16 08:59 09/19/16 07:56 40 MG Albuterol/ Ipratropium 3 ml 3 ml Q2H PRN INH 09/16/16 22:00 10/16/16 21:59 09/19/16 11:17 3 ML Doxycycline Hyclate/Dextrose (Vibramycin IV/ D5 100ml) 110 ml @ 50 mls/hr Q12H IV 09/17/16 12:00 09/23/16 23:59 09/20/16 11:48 50 MLS/HR Guaifenesin (Mucinex Contr Rel Tab) 600 mg Q12H PO 09/17/16 09:00 10/17/16 08:59 09/19/16 20:26 600 MG Clotrimazole 1 fadi 1 fadi [id number] MT 09/16/16 23:00 09/26/16 22:59 09/19/16 20:28 1 FADI Lorazepam/Syringe (Ativan Inj/ Syringe) 1 ml @ 1 mls/min Q4H PRN IV 09/17/16 02:00 10/17/16 01:59 09/19/16 19:15 1 MLS/MIN Methylprednisolone (Medrol Tab) 4 mg 07,13,21 PO 09/20/16 07:00 09/20/16 21:01 Methylprednisolone (Medrol Tab) 4 mg 07,21 PO 09/21/16 07:00 09/21/16 21:01 Methylprednisolone (Medrol Tab) 4 mg 07 PO 09/22/16 07:00 09/22/16 07:01 Tiotropium [place] (Spiriva Handihaler Inhaler) 1 puff QAM INH 09/18/16 09:00 10/18/16 08:59 09/20/16 11:15 1 PUFF Budesonide/ Formoterol Fumarate (Symbicort 160/ 4.5 Inh) 2 puffs BID INH 09/17/16 21:00 10/17/16 20:59 09/20/16 11:15 2 PUFFS Insulin Glargine (Lantus Solostar Pen) see protocol text BID SC 09/18/16 21:00 10/18/16 20:59 09/19/16 21:15 10 UNIT Miscellaneous Information (Consult Glycemic Management Pharmacy) 1 ea UD PRN N/A 09/18/16 11:59 10/18/16 11:58 Objective Vital Signs Date Time Temp Pulse Resp B/P Pulse Ox O2 Delivery O2 Flow Rate FiO2 09/20/16 07:27 36.4 90 20 170/75 94 2.0 09/20/16 04:28 36.5 75 18 132/77 96 Nasal Cannula 2.0 09/20/16 04:00 Nasal Cannula 2.0 09/20/16 00:00 Nasal Cannula 2.0 09/19/16 22:53 36.4 83 18 147/78 96 Nasal Cannula 2.0 Humidified Oxygen 09/19/16 20:16 36.6 92 20 153/65 92 Nasal Cannula 2.0 09/19/16 20:00 Nasal Cannula 2.0 09/19/16 16:00 93 Nasal Cannula 2.0 09/19/16 15:03 36.8 87 20 165/80 97 Nasal Cannula 2.0 09/19/16 12:00 94 Nasal Cannula 2.0 Physical Exam General Appearance: + moderate distress (secondary to nausea) Respiratory/Chest: lungs clear, normal breath sounds, no respiratory distress, no accessory muscle use Cardiovascular: regular rate, rhythm, no edema, no murmur Abdomen: normal bowel sounds, non tender, soft Extremities: normal inspection, no pedal edema Neurologic/Psychiatric: no motor/sensory deficits, alert, normal mood/affect Laboratory Results Last 24 Hours Test 09/19/16 16:07 09/19/16 20:24 09/20/16 06:53 09/20/16 07:40 Bedside Glucose 116 mg/dl 141 mg/dl 98 mg/dl White Blood Count 11.42 K/uL Red Blood Count 5.26 M/uL Hemoglobin 10.7 g/dL Hematocrit 37.2 % Mean Corpuscular Volume 70.7 fL Mean Corpuscular Hemoglobin 20.3 pg Mean Corpuscular Hemoglobin Concent 28.8 g/dl Platelet Count 231 K/uL Mean Platelet Volume 9.2 fL Neutrophils (%) (Auto) 64.0 % Lymphocytes (%) (Auto) 23.8 % Monocytes (%) (Auto) 10.5 % Eosinophils (%) (Auto) 1.0 % Basophils (%) (Auto) 0.2 % Neutrophils # (Auto) 7.31 K/uL Lymphocytes # (Auto) 2.72 K/uL Monocytes # (Auto) 1.20 K/uL Eosinophils # (Auto) 0.11 K/uL Basophils # (Auto) 0.02 K/uL RDW Standard Deviation 51.8 fL RDW Coefficient of Variation 20.7 % Immature Granulocyte % (Auto) 0.5 % Immature Granulocyte # (Auto) 0.06 K/uL Hypochromasia PRESENT Anisocytosis PRESENT Spherocytes 1+ Sodium Level 145 mmol/L Potassium Level 3.4 mmol/L Chloride Level 107 mmol/L Carbon Dioxide Level 28 mmol/L Anion Gap 10.0 mmol/L Blood Urea Nitrogen 10 mg/dl Creatinine 0.68 mg/dl Est Creatinine Clear Calc Drug Dose 96.1 ml/min Estimated GFR () 105.6 Estimated GFR (Non- 91.2 BUN/Creatinine Ratio 14.0 Random Glucose 84 mg/dl Calcium Level 8.2 mg/dl Magnesium Level 2.1 mg/dl Test 09/20/16 11:35 Bedside Glucose 140 mg/dl Assessment and Plan This is a 65 year old female with PMH of COPD, chronic respiratory failure on continuous O2 therapy, DM2, chronic anemia, depression/anxiety presents with worsening shortness of breath Acute on Chronic Respiratory Failure Acute COPD exacerbation 09/20 continue current management cont. tapering steroids today 09/19 appreciate pulm input she is feeling much better, will continue current management 09/18 patient presented with acute on chronic respiratory failure appreciate pulmonology input restart symbicort and spiriva cont PO steroids cont. doxycycline 09/17 patient has chronic respiratory failure Uses 2L O2 continuously at baseline presented with worsening shortness of breath received IV solu-medrol in the ER received doxycycline now on PO solu-medrol continue nebulizers PRN Continue Spiriva, and continue inhalers on discharge Anemia 09/20 no scope today +nausea, +vomiting outpatient colonoscopy 09/19 Patient seems stable will change to clear liquid bowel prep - miralax and dulcolax possible EGD and colonoscopy in AM as per GI 09/18 s/p two units PRBCs Hgb >9 planned scopes on Tuesday, may need to push back to Tuesday depending on respiratory status 2/3 likely blood loss positive stool guaiac appreciate GI input - possible colonoscopy or EGD on Wednesday 09/20 Hgb dropped < 8 will transfuse two units PRBCs due to her shortness of breath recheck H/H four hours post transfusion DM2 2 increased Lantus to 30 units BID tighter sliding scale glycemic control consultation / uncontrolled with an A1c > 8.0% currently receiving Lantus 25 units BID insulin sliding scale will need tighter control as outpatient monitor BSGs with steroid use Depression/Anxiety continue home medications DVT ppx SCDs FULL CODE
[2016-09-20] MEDS ORDERED: PROMETHAZINE HCL INJ 25 MG in SODIUM CHLORIDE 0.9% 50ML 50 ML IV ONE (12:00)
--- NOTE | 2016-09-20 12:39 | Pharmacy Progress Note ---
Glycemic Control: Progress Nt Date of Service Sep 20, 2016. Scope Glycemic Pharmacist consulted by Dr Dyer on 09/18/16 for glycemic control and to write orders per [facility] inpatient glycemic control protocol. Objective Accuchecks BSG (last 24hrs): Test 09/19/16 16:07 09/19/16 20:24 09/20/16 06:53 09/20/16 07:40 Bedside Glucose 116 mg/dl (70-90) 141 mg/dl (70-90) 98 mg/dl (70-90) Random Glucose 84 mg/dl (70-99) Test 09/20/16 11:35 Bedside Glucose 140 mg/dl (70-90) Laboratory Data (last 24hrs) Test 09/20/16 06:53 Anion Gap 10.0 mmol/L BUN/Creatinine Ratio 14.0 Blood Urea Nitrogen 10 mg/dl Creatinine 0.68 mg/dl Potassium Level 3.4 mmol/L Sodium Level 145 mmol/L White Blood Count 11.42 K/uL Red Blood Count 5.26 M/uL Hemoglobin 10.7 g/dL Hematocrit 37.2 % Mean Corpuscular Volume 70.7 fL Mean Corpuscular Hemoglobin 20.3 pg Mean Corpuscular Hemoglobin Concent 28.8 g/dl Platelet Count 231 K/uL Mean Platelet Volume 9.2 fL Neutrophils (%) (Auto) 64.0 % Lymphocytes (%) (Auto) 23.8 % Monocytes (%) (Auto) 10.5 % Eosinophils (%) (Auto) 1.0 % Basophils (%) (Auto) 0.2 % Neutrophils # (Auto) 7.31 K/uL Lymphocytes # (Auto) 2.72 K/uL Monocytes # (Auto) 1.20 K/uL Eosinophils # (Auto) 0.11 K/uL Basophils # (Auto) 0.02 K/uL HbA1c: Test 09/19/16 06:10 Hemoglobin A1c 7.6 % (4.5-5.6) H Recent Pertinent Medications Outpatient Anti-diabetic Regimen: * metformin 500mg PO BID The patient is currently receiving: * Basal insulin: Lantus 0-15 units BID based on BSG * Correctional Insulin: NovoLog Correction per scale AC+HS Goal Range: Low 120 mg/dL - High 160 mg/dL Correction Factor: 20 mg/dL/unit * Prandial insulin: Per carb ratio of 1 unit per 8 grams CHO consumed Risk Factors for Insulin Resistance: * Steroids: Medrol dose pack - today will receive 12 mg total of Medrol. --> 07:00 and 13:00 dose of steroid not given 2/2 NPO status * Infection: Doxy IV * Diet: NPO after midnight today, also with N/V today per notes Assessment & Plan ASSESSMENT: * 65yo T2DM female with unknown degree of outpatient control - A1c unknown. Ordered per protocol. * Pt is maintained on oral agent monotherapy with metformin as an outpatient. Metformin held on admission and initiated on SQ basal bolus insulin regimen for steroid induced hyperglycemia. * Pt with SEVERE hyperglycemia on 09/16 -09/17 secondary to Solu-Medrol 125mg IV x 1 in ED and starting Medrol dose pack * Medrol dose pack starts with RTC dosing of methylprednisolone at 24mg/day --> dose titrates by 4mg per day daily. * Pt received 20mg methylprednisolone 09/18 --> required 58 units of insulin for the day, BSGs ranging 141-218mg/dl. Empirically decreased Lantus dosing in anticipation of step down in steroid dosing for 09/19 * 09/19/16: Pt will receive 16mg of methylprednisolone. Expect total daily dose of insulin to be less than 58 units/day like 09/18. Will continue to empirically decrease insulin regimen as Medrol Dose pack tapers. * 09/20/16: AM BSG below goal range and patient now NPO - held AM Lantus and decrease PM dose of Lantus - 07:00 and 13:00 dose of Medrol not given 2/2 NPO status - will likely require much less insulin today * ADA & AACE recommend a goal blood sugar range 140-180 mg/dl for the majority of critically ill & non-critically ill patients. However, more stringent targets may be selected in individual cases. Will utilize more stringent goal range of 120-160mg/dl based on age. PLAN FOR INPATIENT GLYCEMIC CONTROL: Continue Lantus dosing based on BSG - basal needs will be changing with rapid step down in steroid dosing. Continue aggressive bolus insulin for steroid induced hyperglycemia. Assess discharge needs after A1c results. * Hold outpatient oral diabetes medications * Basal insulin with LANTUS SQ BID - dosing based on BSG d/t rapid steroid taper * IF BSG 120mg/dL or below --> Do not give Lantus * If BSG 121mg/dL or above --> Give Lantus 10 units * Correctional Insulin with NOVOLOG per scale ACHS or Q6hrs while NPO * Goal Range: Low 120 mg/dL - High 160 mg/dL * Correction Factor: 20 mg/dL/unit * Nutritional / Prandial insulin per carb ratio of 1 unit per 8 grams CHO consumed * A1c resulted at 7.6% * near goal of 6.6-7.5% per quick estimation based on age/comorbidities RECOMMENDATIONS FOR DISCHARGE: * likely able to continue home metformin at discharge * may consider titrating up to max dose if more aggressive glycemic control warranted. * Please note that the plan above was derived based on current level of insulin resistance and hospital stress. These recommendations are appropriate for inpatient admission only. Plan of care upon discharge will need to be reassessed to avoid potential outpatient hypo/hyperglycemia. Thank you.
[2016-09-20 16:10] VITALS: BP 147/70; PULSE 88; TEMP 36.5; O2SAT 95
[2016-09-20] MEDS: TRAMADOL HCL 50 MG TAB PO PRN (16:35)
[2016-09-20] MEDS: LORAZEPAM INJ 0.5 MG in SYRINGE 0.75 ML IV PRN (18:38)
[2016-09-20 20:12] VITALS: BP 114/66; PULSE 84; TEMP 37.2; O2SAT 97
[2016-09-21] VITALS (7 sets, daily range): BP systolic 111–144; BP diastolic 68–77; PULSE 82–120; TEMP 36.5–37; O2SAT 90–98
[2016-09-21] MEDS: METHYLPREDNISOLONE 4 MG TAB PO SCH ×2 (06:28→20:57)
[2016-09-21] MEDS: CLOTRIMAZOLE 10 MG TROCHE MT SCH ×5 (06:28→23:01)
[2016-09-21] MEDS: INSULIN ASPART 100 UNITS/ML 3 ML PEN SC SCH ×4 (06:30→20:21)
[2016-09-21] MEDS: TRAMADOL HCL 50 MG TAB PO PRN (06:30)
--- NOTE | 2016-09-21 07:44 | Clinical Documentation Query ---
CLINICAL DOCUMENTATION QUERY Dr. FARMER, In your clinical opinion is this patient being managed for: ( X ) Acute blood loss anemia-( Likely source GI ( ) Chronic blood loss anemia ( ) Other explanation of clinical findings (Please Explain) ( ) Unable to determine (Please Define) ( ) Need to Discuss ( ) Not Agree The medical record reflects the following clinical findings, treatment, and risk factors. Clinical Indicators: 65 yo female presenting with Hgb 8.3, Hct 28.4 and heme + stools. PN 2/3 indicates anemia likely due to blood loss. Hgb/Hct dropped as low as 7.7/26.7. Treatment: 2 U PRBC's, recheck H/H following transfusion, GI consult, potential endoscopies once respiratory status improves. Risk Factors: chronic anemia, GI bleed Please clarify and document your clinical opinion in the progress notes and discharge summary. Terms such as "probable", "suspected", "likely", "questionable", "possible", or "still to be ruled out" are acceptable. IF IN AGREEMENT, YOU MUST DOCUMENT ABOVE DIAGNOSTIC STATEMENT IN DAILY PROGRESS NOTES AND DISCHARGE SUMMARY. This document is not part of the patient's record. Thank You, Tequila David, ARTUR [phone]
[2016-09-21 07:47] LABS: BASO % 0.2 %; BASO ABS # 0.02 K/uL (0-0.2); HEMATOCRIT 36.2 % (37-47); IG% 0.4 %; LYMPH ABS # 2.11 K/uL (1.2-3.4); MEAN CELL VOLUME 70.6 fL (80-100); MEAN CORPUSCULAR HEMOGLOBIN 20.7 pg (25-34); MEAN CORPUSCULAR HGB CONC 29.3 g/dl (32-36); MEAN PLATELET VOLUME 9.4 fL (7.4-10.4); MONO % 10.1 %; NEUT % 66.3 %; PLATELET COUNT 240 K/uL (130-400); RED BLOOD COUNT 5.13 M/uL (4.2-5.4); WHITE BLOOD COUNT 9.57 K/uL (4.8-10.8)
[2016-09-21 08:14] LABS: BUN/CREATININE RATIO 18.5 (10-20); CALCIUM 8.3 mg/dl (8.5-10.1); CREATININE 0.61 mg/dl (0.60-1.20); MAGNESIUM 2.4 mg/dl (1.8-2.4); POTASSIUM 3.5 mmol/L (3.5-5.1)
[2016-09-21 08:32] LABS: ANISOCYTOSIS PRESENT; COMPLETE YES; OVALOCYTES 1+
[2016-09-21] MEDS: BUDESONIDE/FORMOTEROL FUMARATE 160/4.5 60 PUFFS/INHALER INH SCH ×2 (08:49→20:58)
[2016-09-21] MEDS: ALPRAZOLAM 0.5 MG TAB PO SCH ×2 (08:51→20:56)
[2016-09-21] MEDS: ROFLUMILAST 500 MCG TAB PO SCH (08:51)
[2016-09-21] MEDS: TIOTROPIUM BROMIDE 5 PUFF/90 MCG INH INH SCH (08:52)
[2016-09-21] MEDS: PANTOprazole SOD 40 MG TAB PO SCH (09:16)
[2016-09-21] MEDS: VENLAFAXINE HCL XR 37.5 MG CAPXR PO SCH (09:16)
[2016-09-21] MEDS: GUAIFENESIN 600 MG TABCR PO SCH ×2 (09:16→20:57)
[2016-09-21] MEDS: VENLAFAXINE HCL XR 150 MG CAPXR PO SCH (09:17)
--- NOTE | 2016-09-21 09:44 | PROGRESS NOTE ---
DATE: 09/21/2016 HISTORY OF PRESENT ILLNESS: The patient is stable this morning, states she feels considerably better than she did at the time of admission. She denies any cough or significant sputum production, still has some shortness of breath with exertion such as walking to the bathroom, but she has been able to do that about the nighttime. She declined endoscopy or colonoscopy and wants to do that as an outpatient. PHYSICAL EXAMINATION: VITAL SIGNS: Stable. Blood pressure 134/73, respiratory rate 18, oxygen saturation is 94% on room air. HEENT: Unremarkable. No thrush noted. There is no adenopathy noted anywhere. HEART: Regular rate and rhythm. No murmurs are heard. LUNGS: Clear. No wheezing is noted. ABDOMEN: Soft, nontender. No organomegaly noted. EXTREMITIES: She has no cyanosis, clubbing or edema. LABORATORY DATA: White count is 9.6, hematocrit 36%, which is stable. Platelet count 240,000. PRP looked good with a CO2 of 25. IMPRESSION: 1. Respiratory failure secondary to chronic obstructive lung disease. 2. Chronic obstructive pulmonary disease with exacerbation with hypercapnia and hypoxemia improved. 3. Anemia. 4. Diabetes mellitus. RECOMMENDATIONS: 1. Continue to taper down the steroids. 2. Continue on Spiriva and Symbicort, use albuterol just as needed. 3. Good DVT prophylaxis. Increase activity. Overall, she is stable. [facility]
--- NOTE | 2016-09-21 10:42 | Pharmacy Progress Note ---
Glycemic Control: Progress Nt Date of Service Sep 21, 2016. Scope Glycemic Pharmacist consulted by Dr Dyer on 09/18/16 for glycemic control and to write orders per [facility] inpatient glycemic control protocol. Objective Accuchecks BSG (last 24hrs): Test 09/20/16 11:35 09/20/16 16:04 09/20/16 20:20 09/21/16 06:35 Bedside Glucose 140 mg/dl (70-90) 130 mg/dl (70-90) 158 mg/dl (70-90) Random Glucose 88 mg/dl (70-99) Test 09/21/16 07:32 Bedside Glucose 105 mg/dl (70-90) Laboratory Data (last 24hrs) Test 09/21/16 06:35 Anion Gap 10.0 mmol/L BUN/Creatinine Ratio 18.5 Blood Urea Nitrogen 11 mg/dl Creatinine 0.61 mg/dl Potassium Level 3.5 mmol/L Sodium Level 142 mmol/L White Blood Count 9.57 K/uL Red Blood Count 5.13 M/uL Hemoglobin 10.6 g/dL Hematocrit 36.2 % Mean Corpuscular Volume 70.6 fL Mean Corpuscular Hemoglobin 20.7 pg Mean Corpuscular Hemoglobin Concent 29.3 g/dl Platelet Count 240 K/uL Mean Platelet Volume 9.4 fL Neutrophils (%) (Auto) 66.3 % Lymphocytes (%) (Auto) 22.0 % Monocytes (%) (Auto) 10.1 % Eosinophils (%) (Auto) 1.0 % Basophils (%) (Auto) 0.2 % Neutrophils # (Auto) 6.33 K/uL Lymphocytes # (Auto) 2.11 K/uL Monocytes # (Auto) 0.97 K/uL Eosinophils # (Auto) 0.10 K/uL Basophils # (Auto) 0.02 K/uL HbA1c: Test 09/19/16 06:10 Hemoglobin A1c 7.6 % (4.5-5.6) H Recent Pertinent Medications Outpatient Anti-diabetic Regimen: * metformin 500mg PO BID The patient is currently receiving: * Basal insulin: Lantus 10 units SQ q PM on 09/20/16 * Correctional Insulin: NovoLog Correction per scale AC+HS Goal Range: Low 120 mg/dL - High 160 mg/dL Correction Factor: 20 mg/dL/unit * Prandial insulin: Per carb ratio of 1 unit per 8 grams CHO consumed Risk Factors for Insulin Resistance: * Steroids: Medrol dose pack - today will receive 8mg of Medrol total (4mg PO BID) * Infection: Doxy IV * Diet: NPO for EGD today Assessment & Plan ASSESSMENT: * 65yo T2DM female with near-goal glycemic control as outpatient * Pt is maintained on oral agent monotherapy with metformin as an outpatient. * Metformin held on admission and initiated on SQ basal bolus insulin regimen for steroid induced hyperglycemia. * Pt with SEVERE hyperglycemia on 09/16 -09/17 secondary to Solu-Medrol 125mg IV x 1 in ED and starting Medrol dose pack * Medrol dose pack starts with RTC dosing of methylprednisolone at 24mg/day --> dose titrates by 4mg per day daily. * Pt received 20mg methylprednisolone 09/18 --> required 58 units of insulin for the day, BSGs ranging 141-218mg/dl. Empirically decreased Lantus dosing in anticipation of step down in steroid dosing for 09/19 * 09/19/16: Pt will receive 16mg of methylprednisolone. Expect total daily dose of insulin to be less than 58 units/day like 09/18. Will continue to empirically decrease insulin regimen as Medrol Dose pack tapers. * 09/20/16: AM BSG below goal range and patient now NPO - held AM Lantus and decrease PM dose of Lantus - 07:00 and 13:00 dose of Medrol not given 09/16 NPO status - will likely require much less insulin today * 09/21/16: AM BSG below goal range and patient NPO for EGD - discontinue basal insulin altogether at this time - loosen correction factor and carb ratio since steroids are almost tapered completely. - once n/v resolves and patient tolerating PO, may consider resuming PO metformin * ADA & AACE recommend a goal blood sugar range 140-180 mg/dl for the majority of critically ill & non-critically ill patients. However, more stringent targets may be selected in individual cases. Will utilize more stringent goal range of 120-160mg/dl based on age. PLAN FOR INPATIENT GLYCEMIC CONTROL: Continue Lantus dosing based on BSG - basal needs will be changing with rapid step down in steroid dosing. Continue aggressive bolus insulin for steroid induced hyperglycemia. Assess discharge needs after A1c results. * Hold outpatient oral diabetes medications * Discontinue Lantus at this time * Correctional Insulin with NOVOLOG per scale ACHS or Q6hrs while NPO * Goal Range: Low 120 mg/dL - High 160 mg/dL * Correction Factor: 30 mg/dL/unit * Nutritional / Prandial insulin per carb ratio of 1 unit per 10 grams CHO consumed * A1c resulted at 7.6% * near goal of 6.6-7.5% per quick estimation based on age/comorbidities RECOMMENDATIONS FOR DISCHARGE: * likely able to continue home metformin at discharge * may consider titrating up to max dose of metformin if more aggressive glycemic control warranted. * Please note that the plan above was derived based on current level of insulin resistance and hospital stress. These recommendations are appropriate for inpatient admission only. Plan of care upon discharge will need to be reassessed to avoid potential outpatient hypo/hyperglycemia. Thank you.
[2016-09-21] MEDS: DOXYCYCLINE IV 100 MG in DEXTROSE 5% 100ML 100 ML IV SCH (12:00)
--- NOTE | 2016-09-21 12:12 | Gastroenterology Progress Note ---
Progress Note Date of Service: Sep 21, 2016 Subjective Pt evaluation today including: conversation w/ patient, conversation w/ family (), physical exam, chart review, lab review, review of studies, review of inpatient medication list Review of Systems Constitutional: No chills, No fever, No sweats, No weakness Respiratory: + shortness of breath (slightly worse than baseline, but improved compared to arrival) Abdomen: No GI bleeding, No constipation, No diarrhea, No nausea, No pain, No vomiting Female : No dysuria Heme: No abnormal bleeding/bruising Endo: + fatigue (much improved) Skin: No rash Medications Current Inpatient Medications Medications (Trade) Dose Ordered Sig/Leah Route Start Time Stop Time Status Last Admin Dose Admin Acetaminophen (Tylenol Tab) 650 mg Q4H PRN PO 09/16/16 22:00 10/16/16 21:59 09/17/16 22:46 650 MG Nitroglycerin (Nitrostat Tab) 0.4 mg UD PRN SL 09/16/16 22:00 10/16/16 21:59 Insulin Aspart (novoLOG ASPART) SLIDING SCALE If C... ACHS SC 09/17/16 06:30 10/15/16 06:29 09/19/16 17:19 8 UNITS Glucose (Glucose 40% Gel) 15-30 GRAMS 15 GRAMS... UD PRN PO 09/16/16 22:00 10/16/16 21:59 Glucose (Glucose Chew Tab) 4-8 Tablets 4 Tabl... UD PRN PO 09/16/16 22:00 10/16/16 21:59 Dextrose (Dextrose 50% 50ML Syringe) 25-50ML OF 50% DW IV FOR... UD PRN IV 09/16/16 22:00 10/16/16 21:59 Glucagon (Glucagon Inj) 1 mg UD PRN SQ 09/16/16 22:00 10/16/16 21:59 Tramadol HCl (Ultram Tab) 25 mg Q6H PRN PO 09/16/16 22:00 10/16/16 21:59 09/21/16 06:30 25 MG Ondansetron HCl (Zofran Inj) 4 mg Q6H PRN IV 09/16/16 22:00 10/16/16 21:59 09/20/16 18:37 4 MG Lorazepam (Ativan Inj) 0.5 mg Q4H PRN IV 09/16/16 22:00 10/16/16 21:59 Morphine Sulfate (MoRPHine SULFATE INJ) 4 mg Q6H PRN IV 09/16/16 22:00 09/30/16 21:59 09/20/16 08:07 4 MG Alprazolam (Xanax Tab) 0.5 mg BID PO 09/17/16 09:00 10/17/16 08:59 09/21/16 08:51 0.5 MG Roflumilast (Daliresp Tab) 500 mcg DAILY PO 09/17/16 09:00 10/17/16 08:59 09/21/16 08:51 500 MCG Venlafaxine HCl (effeXOR EXTENDED REL CAP) 150 mg DAILY PO 09/17/16 09:00 10/17/16 08:59 09/21/16 09:17 150 MG Venlafaxine HCl (effeXOR EXTENDED REL CAP) 37.5 mg DAILY PO 09/17/16 09:00 10/17/16 08:59 09/21/16 09:16 37.5 MG Pantoprazole Sodium (Protonix Tab) 40 mg DAILY PO 09/17/16 09:00 10/17/16 08:59 09/21/16 09:16 40 MG Albuterol/ Ipratropium 3 ml 3 ml Q2H PRN INH 09/16/16 22:00 10/16/16 21:59 09/19/16 11:17 3 ML Doxycycline Hyclate/Dextrose (Vibramycin IV/ D5 100ml) 110 ml @ 50 mls/hr Q12H IV 09/17/16 12:00 09/23/16 23:59 09/20/16 23:50 50 MLS/HR Guaifenesin (Mucinex Contr Rel Tab) 600 mg Q12H PO 09/17/16 09:00 10/17/16 08:59 09/21/16 09:16 600 MG Clotrimazole 1 fadi 1 fadi [id number] MT 09/16/16 23:00 09/26/16 22:59 09/21/16 06:28 1 FADI Lorazepam/Syringe (Ativan Inj/ Syringe) 1 ml @ 1 mls/min Q4H PRN IV 09/17/16 02:00 10/17/16 01:59 09/20/16 18:38 1 MLS/MIN Methylprednisolone (Medrol Tab) 4 mg 07,21 PO 09/21/16 07:00 09/21/16 21:01 09/21/16 06:28 4 MG Methylprednisolone (Medrol Tab) 4 mg 07 PO 09/22/16 07:00 09/22/16 07:01 Tiotropium [place] (Spiriva Handihaler Inhaler) 1 puff QAM INH 09/18/16 09:00 10/18/16 08:59 09/21/16 08:52 1 PUFF Budesonide/ Formoterol Fumarate (Symbicort 160/ 4.5 Inh) 2 puffs BID INH 09/17/16 21:00 10/17/16 20:59 09/21/16 08:49 2 PUFFS Miscellaneous Information (Consult Glycemic Management Pharmacy) 1 ea UD PRN N/A 09/18/16 11:59 10/18/16 11:58 Objective Vital Signs Date Time Temp Pulse Resp B/P Pulse Ox O2 Delivery O2 Flow Rate FiO2 09/21/16 11:18 36.7 98 18 127/77 90 2.0 09/21/16 07:41 36.8 82 18 134/73 94 2.0 09/21/16 04:53 36.8 82 16 111/68 96 Room Air 09/21/16 04:00 Nasal Cannula 2.0 09/21/16 00:09 36.9 84 16 132/71 94 2.0 09/21/16 00:00 Nasal Cannula 2.0 09/20/16 20:12 37.2 84 16 114/66 97 Nasal Cannula 2.0 09/20/16 20:00 Nasal Cannula 2.0 09/20/16 16:10 36.5 88 17 147/70 95 Nasal Cannula 2.0 09/20/16 16:00 Nasal Cannula 2.0 Physical Exam General Appearance: no apparent distress, + obese Neck: no JVD Respiratory/Chest: lungs clear Cardiovascular: regular rate, rhythm, no JVD, no murmur Abdomen: non tender, soft Extremities: normal inspection Neurologic/Psych: alert, normal mood/affect, oriented x 3 Skin: no jaundice Laboratory Results Last 24 Hours Test 2/6/17 16:04 09/20/16 20:20 09/21/16 06:35 09/21/16 07:32 Bedside Glucose 130 mg/dl 158 mg/dl 105 mg/dl White Blood Count 9.57 K/uL Red Blood Count 5.13 M/uL Hemoglobin 10.6 g/dL Hematocrit 36.2 % Mean Corpuscular Volume 70.6 fL Mean Corpuscular Hemoglobin 20.7 pg Mean Corpuscular Hemoglobin Concent 29.3 g/dl Platelet Count 240 K/uL Mean Platelet Volume 9.4 fL Neutrophils (%) (Auto) 66.3 % Lymphocytes (%) (Auto) 22.0 % Monocytes (%) (Auto) 10.1 % Eosinophils (%) (Auto) 1.0 % Basophils (%) (Auto) 0.2 % Neutrophils # (Auto) 6.33 K/uL Lymphocytes # (Auto) 2.11 K/uL Monocytes # (Auto) 0.97 K/uL Eosinophils # (Auto) 0.10 K/uL Basophils # (Auto) 0.02 K/uL RDW Standard Deviation 53.0 fL RDW Coefficient of Variation 21.1 % Immature Granulocyte % (Auto) 0.4 % Immature Granulocyte # (Auto) 0.04 K/uL Anisocytosis PRESENT Ovalocytes 1+ Sodium Level 142 mmol/L Potassium Level 3.5 mmol/L Chloride Level 107 mmol/L Carbon Dioxide Level 25 mmol/L Anion Gap 10.0 mmol/L Blood Urea Nitrogen 11 mg/dl Creatinine 0.61 mg/dl Est Creatinine Clear Calc Drug Dose 106.6 ml/min Estimated GFR () 109.5 Estimated GFR (Non- 94.5 BUN/Creatinine Ratio 18.5 Random Glucose 88 mg/dl Calcium Level 8.3 mg/dl Magnesium Level 2.4 mg/dl Test 09/21/16 11:33 Bedside Glucose 150 mg/dl Assessment and Plan Assessment: iron deficiency anemia. Differentials considered are ulcer disease, gastritis, duodenitis, AVM, colon cancer Plan: Today, pt was scheduled for EGD/colonoscopy (without repeat prep) but she tells me that her breathing "isn't quite back to normal yet," and that she doesn't want to do the endoscopy. She prefers OP endoscopy. She also prefers to stay within the [facility]. She will talk with Dr. Lacey about scheduling an OP EGD/ Colonoscopy . I impressed on her and her that it is very important that she undergo EGD and colonoscopy because her Hb is about 5 point lower, explained as having 5 pints less blood than in Jul 2015 and that this can be caused by GI bleeding or colon cancer. Pt agrees to get these procedures, but wished to have them done as an OP. Will also order occult stool during this hospitalization. Attth addendum: I agree with plan as above.
[2016-09-21] MEDS: ALBUT/IPRATROP 3MG/0.5MG NEB 3 ML VIAL INH PRN (13:00)
--- NOTE | 2016-09-21 19:12 | Progress Note ---
Internal Med Progress Note Date of Service: Sep 21, 2016. Provider Documentation: SUBJECTIVE: Patient is sitting in her bed in no apparent distress. Breathing better and comfortably now. SOB increases on exertion. Denies any chest pain/pressure. OBJECTIVE: Vital Signs-as noted below Examination: General Appearance: Alert/Awake and is in no acute distress. HEENT: Normocephalic, Eyes, Ears, Nose & Throat are normal looking. Neck: Supple, Midline trachea, No JVD. Respiratory/Chest: lungs clear, normal breath sounds, no respiratory distress, no accessory muscle use Cardiovascular: regular rate, rhythm, no edema, no murmur Abdomen: normal bowel sounds, non tender, soft Extremities: normal inspection, no pedal edema Neurologic/Psychiatric: no motor/sensory deficits, alert, normal mood/affect Lab data as noted below. ASSESSMENT & PLAN: Acute on Chronic Respiratory Failure: Caused by COPD Exacerbation. Clinically improving. -Continue. tapering steroids today -Continue Doxycycline (Day # 5) -Oxygen as needed to maintain O2 Sat >90 % -Bronchodilators as needed -Continue Spiriva, -Thanks for your input. Anemia: Had Haem positive stools. H/H is stable now. s/p two units PRBCs -Outpatient colonoscopy as per GI Diabetes Type II: BS has been stable.HbAic is >8.0. -Increased Lantus to 30 units BID -Tighter sliding scale -Glycemic control consultation Depression/Anxiety: Continue home medications DVT Prophylaxis: SCDs FULL CODE Disposition: Discharge home in 1-2 days Vital Signs: Date Time Temp Pulse Resp B/P Pulse Ox O2 Delivery O2 Flow Rate FiO2 09/22/16 15:59 36.7 98 16 153/68 96 2.0 09/22/16 12:09 36.9 62 16 118/69 97 Nasal Cannula 3.0 09/22/16 12:00 Nasal Cannula 3.0 09/22/16 07:45 Nasal Cannula 3.0 09/22/16 07:41 37.0 66 16 145/72 100 Nasal Cannula 3.0 09/22/16 04:07 36.8 73 18 104/62 97 Nasal Cannula 2.0 09/22/16 04:00 Nasal Cannula 3.0 09/22/16 00:18 36.7 110 18 96/53 90 Humidified Air 3.0 09/22/16 00:10 Nasal Cannula 3.0 2/7/17 20:00 Nasal Cannula 3.0 09/21/16 19:46 37.0 101 18 143/77 96 Humidified Air 3.0 Lab Results: Results Past 24 Hours Test 09/21/16 20:03 09/22/16 07:02 09/22/16 07:07 09/22/16 11:43 Range/Units Bedside Glucose 158 117 141 70-90 mg/dl White Blood Count 9.41 4.8-10.8 K/uL Red Blood Count 5.00 4.2-5.4 M/uL Hemoglobin 10.3 12.0-16.0 g/dL Hematocrit 35.1 37-47 % Mean Corpuscular Volume 70.2 80-100 fL Mean Corpuscular Hemoglobin 20.6 25-34 pg Mean Corpuscular Hemoglobin Concent 29.3 32-36 g/dl Platelet Count 258 130-400 K/uL Mean Platelet Volume 9.1 7.4-10.4 fL Neutrophils (%) (Auto) 63.4 % Lymphocytes (%) (Auto) 25.5 % Monocytes (%) (Auto) 9.2 % Eosinophils (%) (Auto) 1.2 % Basophils (%) (Auto) 0.2 % Neutrophils # (Auto) 5.96 1.4-6.5 K/uL Lymphocytes # (Auto) 2.40 1.2-3.4 K/uL Monocytes # (Auto) 0.87 0.11-0.59 K/uL Eosinophils # (Auto) 0.11 0-0.5 K/uL Basophils # (Auto) 0.02 0-0.2 K/uL RDW Standard Deviation 52.7 36.4-46.3 fL RDW Coefficient of Variation 21.3 11.5-14.5 % Immature Granulocyte % (Auto) 0.5 % Immature Granulocyte # (Auto) 0.05 0.00-0.02 K/uL Polychromasia 1+ Anisocytosis PRESENT Sodium Level 143 136-145 mmol/L Potassium Level 3.6 3.5-5.1 mmol/L Chloride Level 107 98-107 mmol/L Carbon Dioxide Level 29 21-32 mmol/L Anion Gap 7.0 3-11 mmol/L Blood Urea Nitrogen 17 7-18 mg/dl Creatinine 0.71 0.60-1.20 mg/dl Est Creatinine Clear Calc Drug Dose 92.2 ml/min Estimated GFR () 102.9 Estimated GFR (Non- 88.8 BUN/Creatinine Ratio 24.2 10-20 Random Glucose 108 70-99 mg/dl Calcium Level 8.4 8.5-10.1 mg/dl Test 09/22/16 16:30 Range/Units Bedside Glucose 107 70-90 mg/dl
[2016-09-21] MEDS: DOXYCYCLINE HYCLATE 100 MG CAP PO SCH (20:58)
[2016-09-21] MEDS ORDERED: MoRPHine SULFATE 4 MG/ML 1 ML CARP\\VIAL IV PRN (22:00)
[2016-09-22 00:18] VITALS: BP 96/53; PULSE 110; TEMP 36.7; O2SAT 90
[2016-09-22 04:07] VITALS: BP 104/62; PULSE 73; TEMP 36.8; O2SAT 97
[2016-09-22] MEDS: CLOTRIMAZOLE 10 MG TROCHE MT SCH ×3 (06:36→16:59)
[2016-09-22] MEDS ORDERED: METHYLPREDNISOLONE 4 MG TAB PO SCH (07:00)
[2016-09-22 07:41] VITALS: BP 145/72; PULSE 66; TEMP 37; O2SAT 100
[2016-09-22] MEDS: TIOTROPIUM BROMIDE 5 PUFF/90 MCG INH INH SCH (07:42)
[2016-09-22] MEDS: GUAIFENESIN 600 MG TABCR PO SCH (07:43)
[2016-09-22] MEDS: VENLAFAXINE HCL XR 37.5 MG CAPXR PO SCH (07:43)
[2016-09-22] MEDS: BUDESONIDE/FORMOTEROL FUMARATE 160/4.5 60 PUFFS/INHALER INH SCH (07:43)
[2016-09-22] MEDS: ROFLUMILAST 500 MCG TAB PO SCH (07:43)
[2016-09-22] MEDS: PANTOprazole SOD 40 MG TAB PO SCH (07:43)
[2016-09-22] MEDS: VENLAFAXINE HCL XR 150 MG CAPXR PO SCH (07:43)
[2016-09-22] MEDS: DOXYCYCLINE HYCLATE 100 MG CAP PO SCH (07:43)
[2016-09-22] MEDS: ALPRAZOLAM 0.5 MG TAB PO SCH (07:46)
[2016-09-22 07:48] LABS: BASO % 0.2 %; BASO ABS # 0.02 K/uL (0-0.2); EOS % 1.2 %; HEMATOCRIT 35.1 % (37-47); IG% 0.5 %; LYMPH % 25.5 %; MEAN CELL VOLUME 70.2 fL (80-100); MEAN CORPUSCULAR HEMOGLOBIN 20.6 pg (25-34); MEAN CORPUSCULAR HGB CONC 29.3 g/dl (32-36); MEAN PLATELET VOLUME 9.1 fL (7.4-10.4); MONO % 9.2 %; NEUT % 63.4 %; PLATELET COUNT 258 K/uL (130-400); WHITE BLOOD COUNT 9.41 K/uL (4.8-10.8)
[2016-09-22] MEDS: INSULIN ASPART 100 UNITS/ML 3 ML PEN SC SCH ×3 (08:13→16:30)
[2016-09-22 08:15] LABS: ANISOCYTOSIS PRESENT; COMPLETE YES; POLYCHROMASIA 1+
[2016-09-22 08:22] LABS: BUN/CREATININE RATIO 24.2 (10-20); CALCIUM 8.4 mg/dl (8.5-10.1); CREATININE 0.71 mg/dl (0.60-1.20); POTASSIUM 3.6 mmol/L (3.5-5.1)
--- NOTE | 2016-09-22 11:42 | Pharmacy Progress Note ---
Glycemic Control: Progress Nt Date of Service Sep 22, 2016. Scope Glycemic Pharmacist consulted by Dr Dyer on 09/18/16 for glycemic control and to write orders per [facility] inpatient glycemic control protocol. Objective Accuchecks BSG (last 24hrs): Test 09/21/16 16:13 09/21/16 20:03 09/22/16 07:02 09/22/16 07:07 Bedside Glucose 136 mg/dl (70-90) 158 mg/dl (70-90) 117 mg/dl (70-90) Random Glucose 108 mg/dl (70-99) Laboratory Data (last 24hrs) Test 09/22/16 07:02 Anion Gap 7.0 mmol/L BUN/Creatinine Ratio 24.2 Blood Urea Nitrogen 17 mg/dl Creatinine 0.71 mg/dl Potassium Level 3.6 mmol/L Sodium Level 143 mmol/L White Blood Count 9.41 K/uL Red Blood Count 5.00 M/uL Hemoglobin 10.3 g/dL Hematocrit 35.1 % Mean Corpuscular Volume 70.2 fL Mean Corpuscular Hemoglobin 20.6 pg Mean Corpuscular Hemoglobin Concent 29.3 g/dl Platelet Count 258 K/uL Mean Platelet Volume 9.1 fL Neutrophils (%) (Auto) 63.4 % Lymphocytes (%) (Auto) 25.5 % Monocytes (%) (Auto) 9.2 % Eosinophils (%) (Auto) 1.2 % Basophils (%) (Auto) 0.2 % Neutrophils # (Auto) 5.96 K/uL Lymphocytes # (Auto) 2.40 K/uL Monocytes # (Auto) 0.87 K/uL Eosinophils # (Auto) 0.11 K/uL Basophils # (Auto) 0.02 K/uL HbA1c: Test 09/19/16 06:10 Hemoglobin A1c 7.6 % (4.5-5.6) H Recent Pertinent Medications Outpatient Anti-diabetic Regimen: * metformin 500mg PO BID The patient is currently receiving: * Basal insulin: none at this time * Correctional Insulin: NovoLog Correction per scale AC+HS Goal Range: Low 120 mg/dL - High 160 mg/dL Correction Factor: 30 mg/dL/unit * Prandial insulin: Per carb ratio of 1 unit per 10 grams CHO consumed Risk Factors for Insulin Resistance: * Steroids: Medrol dose pack - d/c today * Infection: Doxy PO * Diet: T2DM Assessment & Plan ASSESSMENT: * 65yo T2DM female with near-goal glycemic control as outpatient * Pt is maintained on oral agent monotherapy with metformin as an outpatient. * Metformin held on admission and initiated on SQ basal bolus insulin regimen for steroid induced hyperglycemia. * Pt with SEVERE hyperglycemia on 09/16 -09/17 secondary to Solu-Medrol 125mg IV x 1 in ED and starting Medrol dose pack * Medrol dose pack starts with RTC dosing of methylprednisolone at 24mg/day --> dose titrates by 4mg per day daily. * Pt received 20mg methylprednisolone 09/18 --> required 58 units of insulin for the day, BSGs ranging 141-218mg/dl. Empirically decreased Lantus dosing in anticipation of step down in steroid dosing for 09/19 * 09/19/16: Pt will receive 16mg of methylprednisolone. Expect total daily dose of insulin to be less than 58 units/day like 09/18. Will continue to empirically decrease insulin regimen as Medrol Dose pack tapers. * 09/20/16: AM BSG below goal range and patient now NPO - held AM Lantus and decrease PM dose of Lantus - 07:00 and 13:00 dose of Medrol not given 09/16 NPO status - will likely require much less insulin today * 09/21/16: AM BSG below goal range and patient NPO for EGD - discontinue basal insulin altogether at this time - loosen correction factor and carb ratio since steroids are almost tapered completely. - once n/v resolves and patient tolerating PO, may consider resuming PO metformin * 09/22/16: AM BSG 117 mg/dL - Patient received a total of 9 units of insulin yesterday and BSGs remained within goal range - Add back metformin with dinner this evening - Steroids d/c'd today-->Remove carb ratio and continue with correctional insulin only * ADA & AACE recommend a goal blood sugar range 140-180 mg/dl for the majority of critically ill & non-critically ill patients. However, more stringent targets may be selected in individual cases. Will utilize more stringent goal range of 120-160mg/dl based on age. PLAN FOR INPATIENT GLYCEMIC CONTROL: * Initiate Metformin 500 mg PO BIDM, first dose with dinner this evening * Correctional Insulin with NOVOLOG per scale ACHS or Q6hrs while NPO * Goal Range: Low 120 mg/dL - High 160 mg/dL * Correction Factor: 30 mg/dL/unit * Discontinue Nutritional / Prandial insulin * A1c resulted at 7.6% * near goal of 6.6-7.5% per quick estimation based on age/comorbidities RECOMMENDATIONS FOR DISCHARGE: * likely able to continue home metformin at discharge * may consider titrating up to max dose of metformin if more aggressive glycemic control warranted. * Please note that the plan above was derived based on current level of insulin resistance and hospital stress. These recommendations are appropriate for inpatient admission only. Plan of care upon discharge will need to be reassessed to avoid potential outpatient hypo/hyperglycemia. Thank you.
[2016-09-22 12:09] VITALS: BP 118/69; PULSE 62; TEMP 36.9; O2SAT 97
[2016-09-22 15:59] VITALS: BP 153/68; PULSE 98; TEMP 36.7; O2SAT 96
[2016-09-22] MEDS ORDERED: METFORMIN HCL 500 MG TAB PO SCH (17:00)
--- NOTE | 2016-09-22 17:27 | Progress Note ---
Internal Med Progress Note Date of Service: Sep 22, 2016. Provider Documentation: SUBJECTIVE: Patient is sitting in her bed in no apparent distress. Breathing better and comfortably now. Has been able to ambulate in hallway without being SOB. Denies any chest pain/ pressure. OBJECTIVE: Vital Signs-as noted below Examination: General Appearance: Alert/Awake and is in no acute distress. HEENT: Normocephalic, Eyes, Ears, Nose & Throat are normal looking. Neck: Supple, Midline trachea, No JVD. Respiratory/Chest: lungs clear, normal breath sounds, no respiratory distress, no accessory muscle use Cardiovascular: regular rate, rhythm, no edema, no murmur Abdomen: normal bowel sounds, non tender, soft Extremities: normal inspection, no pedal edema Neurologic/Psychiatric: no motor/sensory deficits, alert, normal mood/affect Lab data as noted below. ASSESSMENT & PLAN: Acute on Chronic Respiratory Failure: Caused by COPD Exacerbation. Clinically improving. -Continue. tapering steroids today -Continue Doxycycline (Day # 6). Will need total of 10 days after discharge. -Oxygen as needed to maintain O2 Sat >90 % -Bronchodilators as needed -Continue Spiriva, -Thanks for your input. Anemia Due to GI Blood Loss: Had Haem positive stools. H/H is stable now. s/p two units PRBCs -Outpatient colonoscopy as per GI -GI has been following the patient. Diabetes Type II: BS has been stable.HbAic is >8.0. -Increased Lantus to 30 units BID -Tighter sliding scale -Glycemic control consultation Depression/Anxiety: Continue home medications DVT Prophylaxis: SCDs FULL CODE Disposition: Discharge home in later today. Follow up with PCP within 7 days after discharge. Follow up with Pulmonary in 1-2 weeks. Vital Signs: Date Time Temp Pulse Resp B/P Pulse Ox O2 Delivery O2 Flow Rate FiO2 09/22/16 15:59 36.7 98 16 153/68 96 2.0 09/22/16 12:09 36.9 62 16 118/69 97 Nasal Cannula 3.0 09/22/16 12:00 Nasal Cannula 3.0 09/22/16 07:45 Nasal Cannula 3.0 09/22/16 07:41 37.0 66 16 145/72 100 Nasal Cannula 3.0 09/22/16 04:07 36.8 73 18 104/62 97 Nasal Cannula 2.0 09/22/16 04:00 Nasal Cannula 3.0 09/22/16 00:18 36.7 110 18 96/53 90 Humidified Air 3.0 09/22/16 00:10 Nasal Cannula 3.0 09/21/16 20:00 Nasal Cannula 3.0 09/21/16 19:46 37.0 101 18 143/77 96 Humidified Air 3.0 Lab Results: Results Past 24 Hours Test 09/21/16 20:03 09/22/16 07:02 09/22/16 07:07 09/22/16 11:43 Range/Units Bedside Glucose 158 117 141 70-90 mg/dl White Blood Count 9.41 4.8-10.8 K/uL Red Blood Count 5.00 4.2-5.4 M/uL Hemoglobin 10.3 12.0-16.0 g/dL Hematocrit 35.1 37-47 % Mean Corpuscular Volume 70.2 80-100 fL Mean Corpuscular Hemoglobin 20.6 25-34 pg Mean Corpuscular Hemoglobin Concent 29.3 32-36 g/dl Platelet Count 258 130-400 K/uL Mean Platelet Volume 9.1 7.4-10.4 fL Neutrophils (%) (Auto) 63.4 % Lymphocytes (%) (Auto) 25.5 % Monocytes (%) (Auto) 9.2 % Eosinophils (%) (Auto) 1.2 % Basophils (%) (Auto) 0.2 % Neutrophils # (Auto) 5.96 1.4-6.5 K/uL Lymphocytes # (Auto) 2.40 1.2-3.4 K/uL Monocytes # (Auto) 0.87 0.11-0.59 K/uL Eosinophils # (Auto) 0.11 0-0.5 K/uL Basophils # (Auto) 0.02 0-0.2 K/uL RDW Standard Deviation 52.7 36.4-46.3 fL RDW Coefficient of Variation 21.3 11.5-14.5 % Immature Granulocyte % (Auto) 0.5 % Immature Granulocyte # (Auto) 0.05 0.00-0.02 K/uL Polychromasia 1+ Anisocytosis PRESENT Sodium Level 143 136-145 mmol/L Potassium Level 3.6 3.5-5.1 mmol/L Chloride Level 107 98-107 mmol/L Carbon Dioxide Level 29 21-32 mmol/L Anion Gap 7.0 3-11 mmol/L Blood Urea Nitrogen 17 7-18 mg/dl Creatinine 0.71 0.60-1.20 mg/dl Est Creatinine Clear Calc Drug Dose 92.2 ml/min Estimated GFR () 102.9 Estimated GFR (Non- 88.8 BUN/Creatinine Ratio 24.2 10-20 Random Glucose 108 70-99 mg/dl Calcium Level 8.4 8.5-10.1 mg/dl Test 09/22/16 16:30 Range/Units Bedside Glucose 107 70-90 mg/dl
[2016-09-22] MEDS ORDERED: DXY100 PO (17:28)
--- NOTE | 2016-09-22 17:30 | Discharge Instructions ---
Discharge Instructions Admission Reason for Admission: Respiratory Failure, Acute Discharge Discharge Diagnosis / Problem: COPD Exacerbation Discharge Goals Goal(s): Decrease discomfort, Improve function, Increase independence, Improve disease control, Improve nutritional status, Learn about illness, Diagnostic testing, Therapeutic intervention Activity Recommendations Activity Limitations: resume your previous activity (As Tolerated.) Lifting Limitations: none (As Tolerated.) Exercise/Sports Limitations: as tolerated May Resume Sexual Activity: when tolerated Shower/Bathe: no limitations Driving or Machine Use: no limitations . Instructions / Follow-Up Instructions / Follow-Up Follow up with PCP within 7 days after discharge. Follow up with Pulmonary in 1-2 weeks. Current Hospital Diet Patient's current hospital diet: Diabetes Type 2 Diet Discharge Diet Recommended Diet: Diabetes Type 2 Diet Pending Studies Studies pending at discharge: no Laboratory Results Hemoglobin A1c Test 09/19/16 06:10 Range/Units Estimated Average Glucose 171 mg/dl Hemoglobin A1c 7.6 H 4.5-5.6 % Medical Emergencies . Who to Call and When: Medical Emergencies: If at any time you feel your situation is an emergency, please call 911 immediately. . Non-Emergent Contact Non-Emergency issues call your: Primary Care Provider . . "Provider Documentation" section prepared by Rod Engle. VTE Core Measure Inpt VTE Proph given/why not?: SCD's
[2016-09-22 17:34] VITALS: BP 153/68; PULSE 98; TEMP 36.7; O2SAT 96
--- NOTE | 2016-09-22 17:37 | Discharge Summary ---
Discharge Summary Admission Date: Sep 16, 2016 at 23:05 Discharge Date: Sep 22, 2016 Discharge Disposition: Home Principal Diagnosis: Acute on Chronic Respiratory failure COPD Exacerbation Anemia due to GI Blood Loss Secondary Diagnoses/Problems: Diabetes Type II Depression/Anxiety Procedures: Echocardiogram Vaccinations: NONE Consultations: Pulmonary GI Consult Pending Studies/Follow-Up: Need to follow H/H as outpatient Needs outpatient GI work up to be done after discharge Medication Reconciliation New Medications: Doxycycline Hyclate (Doxycycline Hyclate) 100 Mg Cap 100 MG PO BID for 4 Days, #8 CAP Continued Medications: Albuterol Sulf (Proventil 0.083% 2.5MG/3ML) 2.5 Mg/3 Ml Nebu 1 UNIT INH QID, #150 Alprazolam (Alprazolam) 0.5 Mg Tab 0.5 MG PO BID, #60 Budesonide/Formoterol Fumarate (Symbicort 160/4.5 Inhaler) 120 Puffs/ Aero 2 PUFF INH BID, #10 Metformin HCl (Metformin HCl) 500 Mg Tab 500 MG PO BID, #60 Omeprazole (Prilosec) 40 Mg Cap 40 MG PO DAILY, #30 Roflumilast (Daliresp) 500 Mcg Tab 500 MCG PO DAILY, #30 Tiotropium [place] (Spiriva Handihaler) 30 Puff/540 Mcg Aerp 1 CAP PO DAILY, #30 Venlafaxine Hcl (Effexor Xr) 150 Mg Cap 150 MG PO DAILY, #30 Venlafaxine Hcl (Venlafaxine Extended Rel) 37.5 Mg Cap 37.5 MG PO DAILY, #30 TAKE WITH 150 MG [Proair] () 2 PUFF INH Q4 PRN for Shortness of Breath, #9 Admission Information HPI (per Admitting provider): Medical history significant for chronic respiratory failure secondary to COPD on home O2, past tobacco abuse, anxiety, mood disorder, DM2, on oral medications, chronic anemia (most recent hemoglobin was 9.2 from 06/2016 at [facility]) Recent confinement at [facility] 05/2015 for COPD exacerbation. Patient was admitted at [facility] in 05/2016 for pneumonia. Discharged after 2 days on antibiotics and steroids. Breathing not any better even after discharge. PX suffering for next 2 months. Shortness of breath worse on exertion, occasional chest discomfort going across her chest from congestion. cough productive of sticky, junky haynes sputum denies aspiration some leg cramping Worsening symptoms the last 2 weeks. Px denies abdominal pain. Denies black/ bloody stools. She saw her PCP on followup. He prescribed Amoxicillin and Prednisone course for her cough/sob sx. Px also prescribed gargle for oral thrush. Minimal sx improvement. She was sent for an outpatient CT chest wo contrast yesterday at [facility] by PCP. Pneumonia seemed to resolve, stable COPD, benign lung nodules, no lung malignancy as per report. Outpatient chemistry also done. Of note, hemoglobin A1c was noted to be 9. TSH was noted to be 1.38. Patient consulted Emergency Room for worsening shortness of breath/cough symptoms. Px given Solumedrol and nebs at the ER for COPD exacerbation. MEDICAL HISTORY: As above. According to the patient, she had an EGD about 3 years ago which showed "fungus and inflammation" ?Kavitha esophagitis. Colonoscopy done 3 yrs ago was "normal" as per px Colonoscopy from years prior showed polyps. Physical Exam (per Admitting): VITAL SIGNS: Blood pressure was noted to be 150/70, pulse rate 88, RR 24, temp 36.6, sats 95 on 4 liters. GENERAL: Noted to be obese, anxious, no respiratory distress. SKIN: Pallor. HEENT: Pale palpebral conjunctivae. Dry mucosa. nasal cannula in place NECK: Short neck. LUNGS: Decreased breath sounds. Occasional wheeze. HEART: Regular rate and rhythm. ABDOMEN: Some distention, nontender. RECTAL EXAM as per ER MD : brown stool, FOBT positive EXTREMITIES: Minimal LE edema, no tenderness. NEUROLOGIC: No gross focality. Hospital Course Acute on Chronic Respiratory Failure: Caused by COPD Exacerbation. Clinically improving. -Continue. tapering steroids today -Continue Doxycycline (Day # 6). Will need total of 10 days after discharge. -Oxygen as needed to maintain O2 Sat >90 % -Bronchodilators as needed -Continue Spiriva, -Thanks for your input. Anemia Due to GI Blood Loss: Had Haem positive stools. H/H is stable now. s/p two units PRBCs -Outpatient colonoscopy as per GI -GI has been following the patient. Diabetes Type II: BS has been stable.HbAic is >8.0. -Increased Lantus to 30 units BID -Tighter sliding scale -Glycemic control consultation Depression/Anxiety: Continue home medications DVT Prophylaxis: SCDs FULL CODE Disposition: Discharge home in later today. Follow up with PCP within 7 days after discharge. Follow up with Pulmonary in 1-2 weeks. Total time spent on discharge = 40 minutes. This includes examination of the patient, discharge planning, medication reconciliation, and communication with other providers. Discharge Instructions Discharge Goals Goal(s): Decrease discomfort, Improve function, Increase independence, Improve disease control, Improve nutritional status, Learn about illness, Diagnostic testing, Therapeutic intervention Activity Recommendations Activity Limitations: resume your previous activity (As Tolerated.) Lifting Limitations: none (As Tolerated.) Exercise/Sports Limitations: as tolerated May Resume Sexual Activity: when tolerated Shower/Bathe: no limitations Driving or Machine Use: no limitations . Instructions / Follow-Up Instructions / Follow-Up Follow up with PCP within 7 days after discharge. Follow up with Pulmonary in 1-2 weeks. Additional Copies To Azar Rosales D.O.
== END 2016-09-22 19:09 | disposition home or self-care (01) | DRG 191 ==
LOC: ENRESERVDT → ENRESERVTM → C.EDB 17:59 → C.MED 23:05
PROVIDERS: ADMIT Family Medicine; ATTEND Emergency Medicine
DX: J44.1 Chronic obstructive pulmonary disease with (acute) exacerbation (principal); K92.2 Gastrointestinal hemorrhage, unspecified; B37.0 Candidal stomatitis; D50.0 Iron deficiency anemia secondary to blood loss (chronic); F41.9 Anxiety disorder, unspecified; F32.9 Major depressive disorder, single episode, unspecified; Z87.891 Personal history of nicotine dependence; Z83.3 Family history of diabetes mellitus; Z99.81 Dependence on supplemental oxygen

== ENCOUNTER → 2017-01-06 | Outpatient (CLI) | payer OTHER ==
[~2017-01-06] MED LIST changes: +ALBINS/ INH; -ALBU0.5N2 NEB; -ALBU1AER9 INH; +DXY100 PO; +GLC500 PO; -MECL1TAB42 PO; -OMEP40CA PO; +OMEP40CA41 PO; -ONDA8TAB7 PO; +PROAIR INH; +VENL37.593 PO
--- NOTE | 2017-01-06 17:41 | PULMONARY FUNCTION TEST ---
Interpretation is based off ATS criteria. SPIROMETRY: Severe obstructive ventilatory disease with significant reversibility based off FEV1 findings. LUNG VOLUMES: Signs of hyperinflation with residual volume 257%. DIFFUSION CAPACITY: Severely reduced based of DLCO with DLCO:VA ratio increasing to 69%. INTERPRETATION: Severe obstructive ventilatory disease.
== END | disposition home or self-care (01) ==
LOC: C.RC 12:18
PROVIDERS: ATTEND Internal Medicine Critical Care Medicine
DX: J44.1 Chronic obstructive pulmonary disease with (acute) exacerbation (principal); R91.1 Solitary pulmonary nodule; Z99.81 Dependence on supplemental oxygen

== ENCOUNTER 2020-09-07 12:09 | Inpatient (IN) ==
[2020-09-07 12:59] LABS: Eosinophils # (auto) 0.01 K/uL (0-0.5); Eosinophils % (auto) 0.4 %; Hemoglobin 8.4 g/dL (12.0-16.0); Lymphocytes # (auto) 0.54 K/uL (1.2-3.4); Lymphocytes % (auto) 21.1 %; Mean Corpuscular Hemoglobin 23.7 pg (25-34); Mean Corpuscular Volume 79.1 fL (80-100); Mean Platelet Volume 10.4 fL (7.4-10.4); Monocytes # (auto) 0.21 K/uL (0.11-0.59); Monocytes % (auto) 8.2 %; Neutrophils % (auto) 70.3 %; Platelet Count 157 K/uL (130-400); RDW Coefficient of Variation 18.3 % (11.5-14.5); RDW Standard Deviation 53.1 fL (36.4-46.3); Red Blood Count 3.54 M/uL (4.2-5.4); White Blood Count 2.56 K/uL (4.8-10.8)
[2020-09-07 13:04] LABS: Albumin Level 2.7 gm/dl (3.4-5.0); BUN Creatinine Ratio 13.4 (10-20); Creatinine Clr Calc Pharmacy 75.1 ml/min; Est GFR (African American) 95.1; Est GFR (Non-African American) 82.1; Potassium 2.7 mmol/L (3.5-5.1)
[2020-09-07 13:07] LABS: Albumin Globulin Ratio 0.9 (0.9-2); Bilirubin,Total 0.2 mg/dl (0.2-1); Globulin 3.1 gm/dl (2.5-4.0); Total Protein 5.8 gm/dl (6.4-8.2)
[2020-09-07] MEDS ORDERED: SODIUM CHLORIDE 0.9% 1000ML 500 ML IV ONE (13:21)
[2020-09-07] MEDS ORDERED: ONDANSETRON INJ 2 MG/ML 2 ML VIAL IV STA (13:21)
--- NOTE | 2020-09-07 13:37 | XRay Report ---
SINGLE VIEW CHEST CLINICAL HISTORY: Generalized weakness. FINDINGS: An AP, portable, upright chest radiograph is compared to chest x-ray and chest CT dated 02/12. The examination is mildly degraded by portable technique and patient rotation. The cardiomedi astinal silhouette is unremarkable noting atherosclerotic calcification of the thoracic aorta. Emphys rajesh and chronic additional thickening is similar to previous. There is patchy airspace consolidation present at both lung bases. No pneumothorax is seen. The skeletal structures are osteopenic. The bony thorax is grossly intact. IMPRESSION: 1. Advanced emphysema. 2. Patchy airspace consolidation is seen at both lung bases. Correlate clinically for evidence of pne umonia/aspiration pneumonitis. Radiographic follow-up to resolution is recommended. ACT 112: Negative or not required by law. Electronically signed by: Troy Tom M.D. 09/07/2020 1:35 PM
--- NOTE | 2020-09-07 13:44 | Emergency Department Note ---
History of Present Illness General Chief complaint: Illness Stated complaint: Increased weakness, +COVID Time Seen by Provider: 09/07/20 12:54 Source: patient Mode of arrival: EMS Limitations: no limitations History of Present Illness Provider complaint: Generalized weakness and fatigue This is a 69-year-old female who presents to the ED with a chief complaint of generalized weakness and fatigue as well as some nausea and vomiting. The patient states that she started having weakness on , 10 days ago. She states that she was diagnosed with Covid that Tuesday a week ago. She reports over the past 4 days she has had nausea and vomiting. She does have a prescription for Zofran and has been using that. She reports 10 pounds of weight loss since her symptoms started. She reports a history of COPD and diabetes. She is chronically on 4 L of oxygen at home. She has no additional complaints at this time. Home Medications Medication Instructions Recorded Confirmed Type albuterol sulfate 5 mg/mL(0.5 %) 2.5 mg INHALATION Q4H ml 06/08/19 03/12/20 History solution for nebulization albuterol sulfate 90 mcg/actuation 2 puffs INHALATION Q4H gm 06/08/19 03/12/20 History aerosol inhaler ferrous sulfate 325 mg (65 mg PO .TAKE 1 TABLET TWICE #60 tab 06/08/19 03/12/20 History iron) tablet linagliptin 5 mg tablet PO .TAKE 1 TABLET DAILY. tab 06/08/19 03/12/20 History metformin 500 mg tablet PO .Take 2 tablets daily #120 tab 06/08/19 03/12/20 History omeprazole 40 mg capsule,delayed 40 mg PO DAILY cap 06/08/19 03/12/20 History release roflumilast 500 mcg tablet PO .TAKE 1 TABLET DAILY. tab 06/08/19 03/12/20 History tiotropium bromide 18 mcg capsule 1 cap INHALATION DAILY puffs 06/08/19 03/12/20 History with inhalation device valsartan 160 mg tablet PO .TAKE ONE TABLET BY M tab 06/08/19 03/12/20 History venlafaxine 150 mg 1 PO .TAKE 1 CAPSULE Daily cap 06/08/19 03/12/20 History capsule,extended release 24 hr alprazolam 2 mg PO TID 09/07/20 09/07/20 History furosemide 20 - 40 mg PO DAILY PRN 09/07/20 09/07/20 History ondansetron HCl 4 mg PO Q6H PRN 09/07/20 09/07/20 History risperidone 0.5 mg PO DAILY 09/07/20 09/07/20 History rosuvastatin 10 mg PO DAILY 09/07/20 09/07/20 History Allergies Allergy/AdvReac Type Severity Reaction Status Date / Time No Known Allergies Allergy Verified 09/07/20 15:10 Past Med/Surg History Social History Smoking Status: Former smoker Preferred Language: Salvadorean Feels Safe at Home: Hesitant to Answer Review of Systems A total of 10 systems reviewed and were otherwise negative Physical Exam Vital Signs Vital Signs - 24 hr 09/07/20 12:09 09/07/20 12:16 09/07/20 12:30 Temperature 36.9 C Temperature Source Oral Pulse Rate 61 61 60 Pulse Rate from SpO2 Sensor 61 60 Pulse Rhythm Regular Respiratory Rate 25 H 22 26 H Respiratory Effort / Characteristics Non-Labored Spontaneous Respiratory Depth Normal Respiratory Pattern Regular Blood Pressure 119/50 L 119/50 L 129/52 L Blood Pressure Mean 73 68 69 Pulse Oximetry 100 100 100 Oxygen Delivery Method Nasal Cannula Oxygen Flow Rate 4 Sepsis Recent Fever Within 48 Hours No Sepsis New/Unexplained Change in Mental Status No Sepsis Action Taken by Nursing No Action Required 09/07/20 13:00 09/07/20 13:30 09/07/20 14:30 Temperature Temperature Source Pulse Rate 62 64 64 Pulse Rate from SpO2 Sensor 63 64 64 Pulse Rhythm Respiratory Rate 23 28 H 24 Respiratory Effort / Characteristics Respiratory Depth Respiratory Pattern Blood Pressure 138/51 L 135/53 L 134/54 L Blood Pressure Mean 68 88 83 Pulse Oximetry 100 100 100 Oxygen Delivery Method Nasal Cannula Oxygen Flow Rate 4 Sepsis Recent Fever Within 48 Hours Sepsis New/Unexplained Change in Mental Status Sepsis Action Taken by Nursing CONSTITUTIONAL/VITAL SIGNS: Reviewed / noted above. GENERAL: Non-toxic in appearance. INTEGUMENTARY: Warm, dry, and [place]. HEAD: Normocephalic. EYES: without scleral icterus or trauma. ENT/OROPHARYNX: clear and moist. LYMPHADENOPATHY/NECK: Is supple without lymphadenopathy or meningismus. RESPIRATORY: Lungs clear and equal. CARDIOVASCULAR: Regular rate and rhythm. GI/ABDOMEN: Soft and nontender. No organomegaly or pulsatile mass. No rebound or guarding. Normal bowel sounds. EXTREMITIES: Warm and well perfused. BACK: No CVA tenderness. NEUROLOGICAL: Intact without focal deficits. PSYCHIATRIC: normal affect. MUSCULOSKELETAL: Normally developed with good muscle tone. TRIAGE NURSING DOCUMENTATION REVIEWED. Course Administered Medications Discontinued Medications Sodium Chloride (Nss 1000ml) 500 mls @ 999 mls/hr IV .Q31M ONE Stop: 09/07/20 13:51 Last Admin: 09/07/20 14:19 Dose: 999 mls/hr Documented by: [id number] Potassium Chloride (K Joss / Wtr) 10 meq in 100 mls @ 100 mls/hr IV ONE ONE Stop: 09/07/20 14:46 Last Admin: 09/07/20 14:19 Dose: 100 mls/hr Documented by: [id number] Ondansetron HCl (Ondansetron Inj 2 Mg/Ml 2 Ml Vial) 4 mg IV NOW STA Stop: 09/07/20 13:22 Last Admin: 09/07/20 14:19 Dose: 4 mg Documented by: [id number] Medical Decision Making Differential Diagnosis Differential includes acute coronary syndrome, myocardial infarction, CVA, TIA, anemia, infection, pneumonia, UTI, pyelonephritis, poor nutrition, dehydration, electrolyte disturbance,hypoglycemia. Medical Records Attestation: I reviewed the patient's medical records. Home Medications Current Medication List: was personally reviewed by me Laboratory Data Attestation: I reviewed the patient's lab results. Result diagrams: 09/07/20 12:23 09/07/20 12:23 Lab Results 09/07/20 09/07/20 09/07/20 Range/Units 12:23 12:23 12:25 WBC 2.56 L (4.8-10.8) K/uL RBC 3.54 L (4.2-5.4) M/uL Hgb 8.4 L (12.0-16.0) g/dL Hct 28.0 L (37-47) % MCV 79.1 L (80-100) fL MCH 23.7 L (25-34) pg MCHC 30.0 L (32-36) g/dL RDW Std Deviation 53.1 H (36.4-46.3) fL RDW Coeff of Yajaira 18.3 H (11.5-14.5) % Plt Count 157 (130-400) K/uL MPV 10.4 (7.4-10.4) fL Immature Gran % (Auto) 0.0 % Neut % (Auto) 70.3 % Lymph % (Auto) 21.1 % Dukes % (Auto) 8.2 % Eos % (Auto) 0.4 % Baso % (Auto) 0.0 % Neut # (Auto) 1.80 (1.4-6.5) K/uL Lymph # (Auto) 0.54 L (1.2-3.4) K/uL Dukes # (Auto) 0.21 (0.11-0.59) K/uL Eos # (Auto) 0.01 (0-0.5) K/uL Baso # (Auto) 0.00 (0-0.2) K/uL Immature Gran # (Auto) 0.00 (0.00-0.02) K/uL Sodium 142 (136-145) mmol/L Potassium 2.7 L (3.5-5.1) mmol/L Chloride 106 (98-107) mmol/L Carbon Dioxide 29 (21-32) mmol/L Anion Gap 8.0 (3-11) BUN 10 (7-18) mg/dl Creatinine 0.74 (0.6-1.2) mg/dl Est Cr Clr Drug Dosing 75.1 ml/min Est GFR ( Amer) 95.1 Est GFR (Non-Af Amer) 82.1 BUN/Creatinine Ratio 13.4 (10-20) Glucose 82 (70-99) mg/dl Calcium 8.0 L (8.5-10.1) mg/dl Total Bilirubin 0.2 (0.2-1) mg/dl AST 21 (15-37) U/L ALT 21 (12-78) U/L Alkaline Phosphatase 47 (45-117) U/L Total Protein 5.8 L (6.4-8.2) gm/dl Albumin 2.7 L (3.4-5.0) gm/dl Globulin 3.1 (2.5-4.0) gm/dl Albumin/Globulin Ratio 0.9 (0.9-2) Procalcitonin 0.33 (0-0.5) ng/ml COVID-19 Eval Order SARS-CoV-2, RNA, NAAT (NEGATIVE) 09/07/20 09/07/20 Range/Units 14:28 14:28 WBC (4.8-10.8) K/uL RBC (4.2-5.4) M/uL Hgb (12.0-16.0) g/dL Hct (37-47) % MCV (80-100) fL MCH (25-34) pg MCHC (32-36) g/dL RDW Std Deviation (36.4-46.3) fL RDW Coeff of Yajaira (11.5-14.5) % Plt Count (130-400) K/uL MPV (7.4-10.4) fL Immature Gran % (Auto) % Neut % (Auto) % Lymph % (Auto) % Dukes % (Auto) % Eos % (Auto) % Baso % (Auto) % Neut # (Auto) (1.4-6.5) K/uL Lymph # (Auto) (1.2-3.4) K/uL Dukes # (Auto) (0.11-0.59) K/uL Eos # (Auto) (0-0.5) K/uL Baso # (Auto) (0-0.2) K/uL Immature Gran # (Auto) (0.00-0.02) K/uL Sodium (136-145) mmol/L Potassium (3.5-5.1) mmol/L Chloride (98-107) mmol/L Carbon Dioxide (21-32) mmol/L Anion Gap (3-11) BUN (7-18) mg/dl Creatinine (0.6-1.2) mg/dl Est Cr Clr Drug Dosing ml/min Est GFR ( Amer) Est GFR (Non-Af Amer) BUN/Creatinine Ratio (10-20) Glucose (70-99) mg/dl Calcium (8.5-10.1) mg/dl Total Bilirubin (0.2-1) mg/dl AST (15-37) U/L ALT (12-78) U/L Alkaline Phosphatase (45-117) U/L Total Protein (6.4-8.2) gm/dl Albumin (3.4-5.0) gm/dl Globulin (2.5-4.0) gm/dl Albumin/Globulin Ratio (0.9-2) Procalcitonin (0-0.5) ng/ml COVID-19 Eval Order Covid19 [facility]Now [facility] SARS-CoV-2, RNA, NAAT POSITIVE A* (NEGATIVE) Imaging Data Radiologist's Impression: SINGLE VIEW CHEST CLINICAL HISTORY: Generalized weakness. FINDINGS: An AP, portable, upright chest radiograph is compared to chest x-ray a nd chest CT dated 02/29/2020. The examination is mildly degraded by portable technique and patient rotation. The cardiomediastinal silhouette is unremarkable noting atherosclerotic calcification of the thoracic aorta. Emphysema and chronic additional thickening is similar to previous. There is patchy airspace consolidation present at both lung bases. No pneumothorax is seen. The skeletal structures are osteopenic. The bony thorax is grossly intact. IMPRESSION: 1. Advanced emphysema. 2. Patchy airspace consolidation is seen at both lung bases. Correlate clinically for evidence of pneumonia/aspiration pneumonitis. Radiographic follow-up to resolution is recommended. ECG Data Attestation: I personally reviewed and interpreted this ECG as follows: Indication: + chest pain Rate (beats per minute): 59 MDM Narrative Patient presents with generalized weakness as well as nausea and vomiting for the past 4 days despite taking Zofran ODT. The patient has a low potassium here. She is Covid positive. She has bilateral infiltrates that are likely related to Covid. She is saturating adequately on her typical 4 L of oxygen at home. Because the patient has been vomiting despite Zofran ODT at home and has a potassium of 2.7, she will require inpatient evaluation and care. She was treated with some oral potassium here after IV Zofran. She was also given IV potassium. She was given IV fluids. She will be seen by the hospitalist for further evaluation and care. Impression & Plan Nausea & vomiting, Hypokalemia, COVID-19 Discharge Plan Visit Data Chief Complaint: Illness Stated Complaint: Increased weakness, +COVID ED Provider: Ryan Molina Discharge Problem: Nausea & vomiting, Hypokalemia, COVID-19 Forms Stand Alone Forms: [facility] [employer] Prescriptions Prescriptions: No Action albuterol sulfate 5 mg/mL solution for nebulization 2.5 mg inhalation Q4H RF: 0 Daliresp 500 mcg tablet 500 mcg PO DAILY RF: 0 venlafaxine 150 mg capsule,extended release 24hr 150 mg PO DAILY RF: 0 ferrous sulfate 325 mg (65 mg iron) tablet 325 mg PO TID Qty: 60 RF: 0 metformin 500 mg tablet 500 mg PO BID Qty: 120 RF: 0 omeprazole 40 mg capsule,delayed release(DR/EC) 40 mg PO BID RF: 0 albuterol sulfate 90 mcg/actuation HFA aerosol inhaler 2 puffs inhalation Q4H RF: 0 Spiriva with HandiHaler 18 mcg capsule, w/inhalation device 1 cap inhalation DAILY RF: 0 Tradjenta 5 mg tablet 5 mg PO DAILY RF: 0 valsartan 160 mg tablet 160 mg PO DAILY RF: 0 ondansetron HCl 4 mg tablet 4 mg PO Q6H PRN (Reason: Nausea) RF: 0 furosemide 20 mg tablet 20 - 40 mg PO DAILY PRN (Reason: swelling) RF: 0 alprazolam 2 mg tablet 2 mg PO TID RF: 0 risperidone 0.5 mg tablet 0.5 mg PO DAILY RF: 0 rosuvastatin 10 mg tablet 10 mg PO DAILY RF: 0
[2020-09-07] MEDS ORDERED: POTASSIUM CHLORIDE / WTR 10 MEQ/100 ML PLCT IV ONE (13:47)
[2020-09-07] MEDS ORDERED: POTASSIUM CHLORIDE 10 MEQ TABCR PO STA (13:47)
[2020-09-07] MEDS ORDERED: POTASSIUM CHLORIDE 10 MEQ TABCR PO SCH (14:00)
--- NOTE | 2020-09-07 14:37 | History & Physical Report ---
Date of Service September 07, 2020 Assessment & Plan (1) COVID-19: At baseline hypoxia on admission (4L O2 baseline O2 requirement) therefore treatments deferred. COVID isolation precautions. (2) Nausea & vomiting: Suspect etiology due to COVID-19 however appears out of proportion to her other symptoms. Therefore will get CT A/P with IV contrast to r/o SBO. Ondansetron 4mg IV PRN (3) Diarrhea: Monitor BMs. Suspect secondary to COVID-19 (4) Hypokalemia: Supplementation given in ER. Monitor with AM labs. (5) Chronic respiratory failure with hypoxia: Wean O2 to aim >90%. (6) Severe depression: Continue venlafaxine 150mg PO daily (7) History of iron deficiency anemia: Current Hgb 8.4 No melena to suggest GI bleed Transferrin sats, ferritin Continue ferrous sulphate 325mg PO TID (8) COPD (chronic obstructive pulmonary disease): Moderate to severe per last pulmonary note No acute exacerbation. (9) Hallucinations: Possible Started on risperidone as outpatient, will continue this. (10) DVT prophylaxis: Chemical prophylaxis deferred pending stability in Hgb Admission and Anticipated Discharge Date Admission Date: Sep 07, 2020 History of Present Illness Chief Complaint: Shortness of breath, nausea, vomiting Primary Care Provider: Azar Rosales Ann-Marie Sanchez is a 69-year-old female with recent diagnosis of COVID-19 pneumonia with generalized weakness, myalgias, nausea and fatigue. Initial symptoms of weakness started 10 days ago when she was diagnosed with COVID-19 at [facility] ER. Due to her oxygen level being at baseline @ 4LPM. Increased nausea and vomiting over the last 4 days. No abdominal pain. Failed Zofran as an outpatient. 6lb weight loss since . She is unclear regarding her bowel movements, possible diarrhea, no melena. She has a history of esophageal candidiasis but reports no sore throat or odynophagia. Discussed care with the patient's with permission from the patient. He reiterates history from prior PCP, heme/onc notes regarding her possible delusions/hallucinations regarding him cheating on her. However this was prior to her recent diagnosis. The patient did not discuss this with me. He she hasn't had much to eat or drink in the last 2 days. Lots of nausea but no vomiting witnessed by her . In the ER CXR showed severe emphysema with patchy airspace consolidation in both bases, however, she is at her baseline O2 requirement of 4LPM. Given intractable nausea and hypokalemia on labs she was referred to medicine for admission and ongoing management. Allergies Allergy/AdvReac Type Severity Reaction Status Date / Time No Known Allergies Allergy Verified 09/07/20 15:10 Home Medications Medication Instructions Recorded Confirmed Type albuterol sulfate 5 mg/mL(0.5 %) 2.5 mg INHALATION Q4H ml 06/08/19 09/07/20 History solution for nebulization albuterol sulfate 90 mcg/actuation 2 puffs INHALATION Q4H gm 06/08/19 09/07/20 History aerosol inhaler ferrous sulfate 325 mg (65 mg 325 mg PO TID #60 tab 06/08/19 09/07/20 History iron) tablet linagliptin 5 mg tablet 5 mg PO DAILY tab 06/08/19 09/07/20 History metformin 500 mg tablet 500 mg PO BID #120 tab 06/08/19 09/07/20 History omeprazole 40 mg capsule,delayed 40 mg PO BID cap 06/08/19 09/07/20 History release roflumilast 500 mcg tablet 500 mcg PO DAILY tab 06/08/19 09/07/20 History tiotropium bromide 18 mcg capsule 1 cap INHALATION DAILY puffs 06/08/19 09/07/20 History with inhalation device valsartan 160 mg tablet 160 mg PO DAILY tab 06/08/19 09/07/20 History venlafaxine 150 mg 150 mg PO DAILY cap 06/08/19 09/07/20 History capsule,extended release 24 hr alprazolam 2 mg PO TID 09/07/20 09/07/20 History furosemide 20 - 40 mg PO DAILY PRN 09/07/20 09/07/20 History ondansetron HCl 4 mg PO Q6H PRN 09/07/20 09/07/20 History risperidone 0.5 mg PO DAILY 09/07/20 09/07/20 History rosuvastatin 10 mg PO DAILY 09/07/20 09/07/20 History Past Med/Surg History Medical History (Updated 09/08/20 @ 12:46 by Osmin Guevara MD) COPD (chronic obstructive pulmonary disease) Esophageal candidiasis History of iron deficiency anemia Severe depression Surgical History (Updated 09/07/20 @ 16:26 by Osmin Guevara MD) History of cataract surgery Right eye August 2017, left eye September 2017 History of section x2 History of total hysterectomy with bilateral salpingo-oophorectomy (BSO) 1986 Social History (Updated 09/07/20 @ 16:33 by Osmin Guevara MD) Smoking Status: Never smoker Age Quit Using Tobacco: 63; Hx Alcohol Use: No Hx Substance Use: No Preferred Language: [place]i Current Living Situation: Spouse Feels Safe at Home: Yes Assistive Devices: Oxygen - Continuous Review of Systems Review of Systems: All systems reviewed & are unremarkable except as noted in HPI & below Constitutional: + fever, + chills, + body aches, + fatigue and + weight loss Respiratory: + dyspnea on exertion (at baseline) Gastrointestinal: + nausea, + vomiting and + diarrhea/loose stools; no abdominal pain, no heartburn, no dysphagia, no blood in stools and no melena Physical Exam Constitutional: + acute distress (nausea, wretching) and + ill appearing; + not well nourished Eyes: + anicteric sclerae; normal pupil size ENMT: Mouth: oral mucous membranes not dry Neck: trachea midline Respiratory: + cough (occasional productive), able to speak in complete sentences, + prolonged expiratory phase and + pursed lip breathing; does not use accessory muscles Auscultation: + crackles (bibasal); no wheezes Cardiovascular: Rate/Rhythm: regular rate and regular rhythm Heart Sounds: no murmur Extremities: normal capillary refill and + pedal edema (trace equal b/l); no calf tenderness Gastrointestinal (Abdomen): Inspection/Auscultation: normal bowel sounds; abdomen not distended Percussion/Palpation: + abdomen tender (RLQ tenderness) and abdomen soft; no guarding and abdomen not rigid Musculoskeletal: no cyanosis or clubbing, extremities motor strength 5/5 Skin: no rashes, warm and dry Neurologic: moves all extremities and awake; no focal motor deficits and not confused Speech / Cognition: normal speech Psychiatric: Orientation: alert and oriented x 3 Eye Contact: good eye contact Affect: + anxious affect Mood: + anxious mood Genitourinary: no CVA tenderness Results & Data Results & Data ([facility]) Vital Signs (Past 12 Hours) Vital Signs Temp Pulse Resp BP Pulse Ox 09/07/20 14:30 64 24 134/54 L 100 09/07/20 13:30 64 28 H 135/53 L 100 09/07/20 13:00 62 23 138/51 L 100 09/07/20 12:30 60 26 H 129/52 L 100 09/07/20 12:16 61 22 119/50 L 100 09/07/20 12:09 36.9 C 61 25 H 119/50 L 100 Diagnostic Findings SINGLE VIEW CHEST IMPRESSION: 1. Advanced emphysema. 2. Patchy airspace consolidation is seen at both lung bases. Correlate clinically for evidence of pneumonia/aspiration pneumonitis. Radiographic follow-up to resolution is recommended. Medications Administered ER Medications Given: NSS 500ml bolus Potassium Chloride 10 meq IV Potassium Chloride 20 meq PO ECG Indication: chest pain Rate (beats per minute): 59 Rhythm: normal sinus Findings: no acute ischemic change Comparison ECG Date: from (Sep 17, 2016) Change: no significant change Code Status & VTE Plan Code Status DNR - All other treatments (including intubation) outside of a cardiac arrest VTE Prophylaxis Plan VTE Prophylaxis will be ordered: Yes PG Care Time/CCT Total # of Minutes Spent Total Time Spent with Patient: Total time spent is greater than 50% in coordination of care (as documented) at patient's floor/unit and/or counseling patient: Coding Level of Care Code 00282 Initial Inpt Care Lvl 3 Diagnoses COVID-19 U07.1 Nausea & vomiting R11.2 Diarrhea R19.7 Hypokalemia E87.6 Chronic respiratory failure with hypoxia J96.11 Severe depression F32.2 History of iron deficiency anemia Z86.2 COPD (chronic obstructive pulmonary disease) J44.9 Hallucinations R44.3 DVT prophylaxis Z29.9
[2020-09-07] MEDS ORDERED: ALPRAZolam 0.5 MG TABLET PO STA (16:06)
[2020-09-07 16:50] LABS: D Dimer 460 ug/L FEU (0-500)
[2020-09-07 17:05] LABS: C Reactive Protein 1.42 mg/dl (0-0.29); Ferritin 544.6 ng/ml (8-388); Troponin I 0.019 ng/ml (0-0.045)
[2020-09-07] MEDS ORDERED: IOVERSOL 100ml IV ONE (17:57)
[2020-09-07] MEDS ORDERED: NON-FORMULARY MEDICATION (Omeprazole 40 mg capsule,delayed release(DR/EC)) PO SCH (18:26)
[2020-09-07] MEDS ORDERED: ONDANSETRON INJ 2 MG/ML 2 ML VIAL IV PRN (18:26)
[2020-09-07] MEDS ORDERED: ONDANSETRON INJ 2 MG/ML 2 ML VIAL ONE (18:32)
[2020-09-07] MEDS ORDERED: PHARMACY GLYCEMIC MGMT CONSULT PRN (18:43)
[2020-09-07] MEDS ORDERED: GLUCOSE 40% GEL 15 GM TUBE PO PRN (19:45)
[2020-09-07] MEDS ORDERED: DEXTROSE 50% 50 ML SYRINGE IV PRN (19:45)
[2020-09-07] MEDS ORDERED: GLUCOSE 10 TABS/TUBE PO PRN (19:45)
[2020-09-07] MEDS ORDERED: CARBOHYDRATES FOR HYPOGLYCEMIA PO PRN (19:45)
[2020-09-07] MEDS ORDERED: GLUCAGON FOR INJ 1 MG VIAL IM PRN (19:45)
[2020-09-07] MEDS ORDERED: KETOROLAC TROMETHAMINE 15 MG/ML VIAL IV PRN (19:45)
[2020-09-07] MEDS: INSULIN ASPART 100 UNITS/ML 3 ML PEN SC SCH ×2 (20:19→22:13)
[2020-09-07] MEDS: risperiDONE 0.5 MG TABLET PO SCH (20:20)
[2020-09-07] MEDS: ALPRAZolam 0.5 MG TABLET PO SCH (20:20)
[2020-09-07] MEDS: PANTOprazole 40 MG TAB PO SCH (20:20)
[2020-09-07] MEDS: FERROUS SULFATE 325 MG TAB PO SCH (20:20)
--- NOTE | 2020-09-07 20:30 | CT Scan Report ---
CT SCAN OF THE ABDOMEN AND PELVIS WITH IV CONTRAST CLINICAL HISTORY: Generalized abdominal pain. Vomiting. Covid. COMPARISON STUDY: No priors. TECHNIQUE: Following the IV administration of 90 cc of Optiray 320, CT scan of the abdomen and pelvi s is performed from the lung bases to the proximal femora. Images are reviewed in the axial, sagittal , and coronal planes. IV contrast was administered without complication. A dose lowering technique wa s utilized adhering to the principles of ALARA. CT DOSE: 483.76 mGy.cm FINDINGS: Lung bases: The heart is normal in size and without pericardial effusion. Emphysema is noted. There a re foci of bibasilar scarring/atelectasis. There is no airspace consolidation typical for pneumonia o r pleural effusion. Liver: The contrast-enhanced liver is mildly enlarged measuring 19 cm in length. The liver is otherwi se normal in contour and attenuation. There is no intrahepatic biliary ductal dilatation. The hepatic veins and portal veins are patent. Gallbladder: The gallbladder is mildly distended but otherwise normal in appearance. Spleen: Normal in size and attenuation. Pancreas: The pancreas is prominent for age, with a smooth contour and loss of the normal pancreatic clefts. Question minimal surrounding soft tissue infiltration. The gland enhances homogeneously. The duct is normal in caliber. Adrenal glands: Unremarkable. Kidneys: The contrast enhanced kidneys demonstrate cortical atrophy and are without hydronephrosis. T he kidneys enhance symmetrically. Abdominal vasculature: There is advanced atherosclerotic calcification and mild ectasia of the abdomi nal aorta. Bowel: There is mild to moderate colonic diverticulosis without CT evidence of acute diverticulitis. No bowel obstruction is identified. The appendix is well-visualized and normal. Peritoneum: There is no intraperitoneal free air or abdominal ascites. Lymphadenopathy: None. Pelvic viscera: The bladder is normal as visualized. The uterus is surgically absent. No adnexal lesi on is seen. Skeletal structures: The skeletal structures are osteopenic. There is mild lumbosacral spondylosis. D egenerative sclerosis is noted in the sacroiliac joints. No lytic or blastic lesions are seen. IMPRESSION: 1. The pancreas is prominent for age, and demonstrates a smooth contour with loss of the normal pancr eatic clefts. Question faint peripancreatic infiltration. The appearance is nonspecific but could rep resent autoimmune pancreatitis. Correlation with clinical findings and serum amylase/lipase levels wi ll be essential. 2. Mild hepatomegaly. 3. Advanced emphysema. 4. Mild to moderate colonic diverticulosis without CT evidence of acute diverticulitis. 5. Additional findings as above. ACT 112: Negative or not required by law. Electronically signed by: Troy Tom M.D. 09/07/2020 8:28 PM
[2020-09-08] MEDS: ACETAMINOPHEN 325 MG TAB PO PRN ×2 (03:21→11:18)
[2020-09-08 04:54] LABS: Appearance Urine Clear (Clear); Bacteria Urine Automated Negative (Negative); Bilirubin Urine Negative (Negative); Blood Urine Negative (Negative); Cast Urine Automated 0 /lpf (0-5); Color Urine Yellow; Glucose Urine UA Negative (Negative); Ketones Urine 2+ (Negative); Leukocyte Esterase Urine Negative (Negative); Nitrite Urine Negative (Negative); Protein Urine Trace (Negative); RBC Urine Automated >30 /hpf (0-4); Specific Gravity Urine > 1.045 (1.000-1.030); Urobilinogen Urine Negative (Negative)
[2020-09-08 07:19] LABS: Hematocrit (blood only) 28.5 % (37-47); Hemoglobin 8.3 g/dL (12.0-16.0); Lymphocytes # (auto) 0.52 K/uL (1.2-3.4); Lymphocytes % (auto) 26.7 %; Mean Corpuscular Hgb Conc 29.1 g/dL (32-36); Mean Corpuscular Volume 78.9 fL (80-100); Mean Platelet Volume 9.9 fL (7.4-10.4); Monocytes % (auto) 10.3 %; Neutrophils # (auto) 1.23 K/uL (1.4-6.5); Platelet Count 149 K/uL (130-400); RDW Coefficient of Variation 18.5 % (11.5-14.5); RDW Standard Deviation 53.7 fL (36.4-46.3); Red Blood Count 3.61 M/uL (4.2-5.4); White Blood Count 1.95 K/uL (4.8-10.8)
[2020-09-08 07:57] LABS: BUN Creatinine Ratio 14.5 (10-20); Calcium 7.9 mg/dl (8.5-10.1); Creatinine Clr Calc Pharmacy 86.3 ml/min; Est GFR (African American) 107.6; Est GFR (Non-African American) 92.9; Potassium 2.8 mmol/L (3.5-5.1)
--- NOTE | 2020-09-08 08:09 | Hospitalist Progress Note ---
Date of Service September 08, 2020 Assessment & Plan (1) COVID-19: Chronic hypoxic respiratory fairlue at baseline (4L O2 baseline O2 requirement) Since no worsening hypoxia treatments deferred (2) Nausea & vomiting: Suspect etiology due to COVID-19 however appears out of proportion to her other symptoms. comments on pancreatic inflammation below, normal LFT's and lipase to rule out pancreatitis at this point CT A/P 09/07/20 IMPRESSION: 1. The pancreas is prominent for age, and demonstrates a smooth contour with loss of the normal pancreatic clefts. Question faint peripancreatic infiltration. The appearance is nonspecific but could represent autoimmune pancreatitis. Correlation with clinical findings and serum amylase/lipase levels will be essential. 2. Mild hepatomegaly. 3. Advanced emphysema. 4. Mild to moderate colonic diverticulosis without CT evidence of acute diverticulitis. (3) Diarrhea: maybe etiology of hypokalemia Suspect secondary to COVID-19 Replete magnesium augment potassium supplementation recheck on 09/09/2020 (4) Hypokalemia: Supplementation given in ER. (5) Chronic respiratory failure with hypoxia: Wean O2 to aim >90%. (6) Severe depression: Continue venlafaxine 150mg PO daily, given depression at a 75 mg dose at night for 225 daily (7) History of iron deficiency anemia: Current Hgb 8.3 We will give 1 unit transfusion iron low will give venofer prior to discharge Continue ferrous sulphate 325mg PO TID (8) COPD (chronic obstructive pulmonary disease): Moderate to severe per last pulmonary note No acute exacerbation. (9) Hallucinations: Started on risperidone as outpatient Admission and Anticipated Discharge Date Admission Date: September 07, 2020 Subjective this pt is tearful and distraught. she has no dyspepsia, she feels weak and tired. she is having melena but does take po and IV iron Review of Systems Review of Systems: Mild distress and fatigue Patient is emotionally distraught no headache, blurry or double vision no speech or swallowing issues no chest pain, pressure or palpitations Remains with her baseline shortness of breath, nonproductive cough that is also baseline without change in color or quantity consistency of sputum Mild central abdominal pain, mild nausea & vomiting, no dysuria, hematuria or frequency no focal joint pain or swelling no back pain, CVA tenderness or radicular pain no bruising, bleeding or rashes no focal signs of weakness or numbness or altered sensation Patient is obviously depressed comes with a history of that Physical Exam Physical Exam: The patient appeared well nourished and normally developed. Crying and tearful during most of the visit Vital signs as documented. Head exam is normocephalic atraumatic no scleral icterus Neck is without JVD, thyromegaly, or carotid bruits. Lungs are poor air movement consistent with moderate COPD Cardiac exam, Rhythm is regular.. No murmurs, rubs or gallops. Abdominal exam reveals normal bowel sounds, soft very minor epigastric tenderness Extremities are nonedematous and both pedal pulses are present Neurologic exam is alert and oriented, no focal loss of strength or sensation Skin is without bruises or rashes Psychologically is without concerns for anxiety or depression. Results & Data Results & Data ([facility]) Vital Signs (Past 12 Hours) Vital Signs Temp Pulse Pulse Resp BP Pulse Ox 09/08/20 07:41 99.1 F 93 H 18 143/59 H 97 09/08/20 03:27 98.2 F 96 H 20 136/61 100 09/08/20 00:46 79 09/07/20 23:37 98.8 F 92 H 24 118/52 L 100 PG Care Time/CCT Total # of Minutes Spent Total Time Spent with Patient: Total time spent is greater than 50% in coordination of care (as documented) at patient's floor/unit and/or counseling patient: Coding Level of Care Code 44821 Subseq Hosp Care Lvl 3 Diagnoses COVID-19 U07.1 Nausea & vomiting R11.2 Diarrhea R19.7 Hypokalemia E87.6 Chronic respiratory failure with hypoxia J96.11 Severe depression F32.2 History of iron deficiency anemia Z86.2 COPD (chronic obstructive pulmonary disease) J44.9 Hallucinations R44.3
[2020-09-08] MEDS: UMECLIDINIUM BROMIDE 62.5MCG/BLISTER 7 PUFFS/INHALER INH SCH (08:25)
[2020-09-08] MEDS: PANTOprazole 40 MG TAB PO SCH ×2 (08:25→21:15)
[2020-09-08] MEDS: VENLAFAXINE HCL XR 150 MG CAPXR PO SCH (08:25)
[2020-09-08] MEDS: ROSUVASTATIN CALCIUM 10 MG TAB PO SCH (08:25)
[2020-09-08] MEDS: POTASSIUM CHLORIDE CRTAB 20 MEQ TABCR PO SCH ×3 (08:25→21:15)
[2020-09-08] MEDS: ROFLUMILAST 500 MCG TAB PO SCH (08:25)
[2020-09-08] MEDS: FERROUS SULFATE 325 MG TAB PO SCH ×3 (08:25→21:16)
[2020-09-08] MEDS: ALPRAZolam 0.5 MG TABLET PO SCH ×3 (08:28→21:15)
[2020-09-08] MEDS ORDERED: MAGNESIUM SULFATE / D5W 1 GM/100 ML BAG IV ONE (08:30)
[2020-09-08] MEDS: INSULIN ASPART 100 UNITS/ML 3 ML PEN SC SCH ×4 (09:14→21:17)
--- NOTE | 2020-09-08 11:14 | Electrocardiogram Report ---
Test Reason : Blood Pressure : / mmHG Vent. Rate : 059 BPM Atrial Rate : 059 BPM P-R Int : 128 ms QRS Dur : 086 ms QT Int : 438 ms P-R-T Axes : 038 002 004 degrees QTc Int : 433 ms Sinus bradycardia Otherwise normal ECG When compared with ECG of 17-SEP-2016 07:25, Vent. rate has decreased BY 29 BPM Confirmed by Darwin Woodard ([id number]) on 09/08/2020 11:13:45 AM Referred By: ER Confirmed By:Ar Woodard
[2020-09-08] MEDS ORDERED: SODIUM CHLORIDE 0.9% 250 ML IV PRN (12:35)
[2020-09-08] MEDS ORDERED: diphenhydrAMINE Capsule 25 MG CAP PO ONE (12:35)
[2020-09-08] MEDS ORDERED: ACETAMINOPHEN 325 MG TAB PO ONE (12:38)
--- NOTE | 2020-09-08 12:57 | Pharmacy Report ---
Pharmacy Glycemic Short Note 2 - Date of Service September 08, 2020 - Glycemic Short BSG Results (Last 24 hours): 09/07/20 09/07/20 09/08/20 12:23 20:03 06:23 Glucose 82 69 L POC Glucose 79 09/08/20 09/08/20 07:39 11:22 Glucose POC Glucose 75 91 OUTPATIENT ANTIDIABETIC REGIMEN: * Metformin ER 500 mg BID; Tradjenta 5 mg tabs;?11 units HS of lantus (last filled in April 2020) * A1c ordered but uncollected ASSESSMENT: * CL is admitted w/ nausea/vomiting and COVID-19 infection; patient is on home 4L of oxygen with adequate O2 saturation; therefore holding off on steroid administration * BSGs have been 79-91 mg/dL, patient on clear liquid diet. * Will continue novolog correctional plus prandial coverage for now dosed at a weight based stress of 2, will initiate lantus if BSGs start to trend up. PLAN FOR INPATIENT GLYCEMIC CONTROL: * Hold outpatient oral diabetes medications * Basal insulin * hold for now * Bolus insulin * NovoLog per scale ACHS or Q6hrs while NPO * Goal Range: Low 110 mg/dL - High 140 mg/dL * Correction Factor: 30 mg/dL/unit * Nutritional / Prandial insulin per carb ratio of 1 unit per 10 grams CHO consumed
[2020-09-08 14:11] LABS: Estimated Average Glucose 97 mg/dl
[2020-09-08] MEDS ORDERED: diphenhydrAMINE Capsule 25 MG CAP ONE (17:36)
[2020-09-08] MEDS ORDERED: VENLAFAXINE HCL XR 75 MG CAPXR PO SCH (21:00)
[2020-09-08] MEDS: risperiDONE 0.5 MG TABLET PO SCH (21:16)
[2020-09-09] MEDS: ACETAMINOPHEN 325 MG TAB PO PRN ×2 (03:12→13:22)
[2020-09-09 06:09] LABS: Hemoglobin 10.3 g/dL (12.0-16.0)
[2020-09-09] MEDS: POTASSIUM CHLORIDE CRTAB 20 MEQ TABCR PO SCH (08:56)
[2020-09-09] MEDS: UMECLIDINIUM BROMIDE 62.5MCG/BLISTER 7 PUFFS/INHALER INH SCH (08:56)
[2020-09-09] MEDS: ROSUVASTATIN CALCIUM 10 MG TAB PO SCH (08:57)
[2020-09-09] MEDS: ROFLUMILAST 500 MCG TAB PO SCH (08:57)
[2020-09-09] MEDS: PANTOprazole 40 MG TAB PO SCH (08:57)
[2020-09-09] MEDS: VENLAFAXINE HCL XR 150 MG CAPXR PO SCH (08:57)
[2020-09-09] MEDS: FERROUS SULFATE 325 MG TAB PO SCH ×2 (08:57→13:18)
[2020-09-09] MEDS: INSULIN ASPART 100 UNITS/ML 3 ML PEN SC SCH ×3 (08:59→12:20)
[2020-09-09] MEDS: ALPRAZolam 0.5 MG TABLET PO SCH ×2 (10:00→13:18)
[2020-09-09 13:03] LABS: BUN Creatinine Ratio 11.9 (10-20); Creatinine Clr Calc Pharmacy 97.9 ml/min; Est GFR (African American) 112.2; Est GFR (Non-African American) 96.8
--- NOTE | 2020-09-09 13:05 | Discharge Summary ---
Date of Service September 09, 2020 Admission HPI Per Admitting Provider Ann-Marie Sanchez is a 69-year-old female with recent diagnosis of COVID-19 pneumonia with generalized weakness, myalgias, nausea and fatigue. Initial symptoms of weakness started 10 days ago when she was diagnosed with COVID-19 at [facility] ER. Due to her oxygen level being at baseline @ 4LPM. Increased nausea and vomiting over the last 4 days. No abdominal pain. Failed Zofran as an outpatient. 6lb weight loss since . She is unclear regarding her bowel movements, possible diarrhea, no melena. She has a history of esophageal candidiasis but reports no sore throat or odynophagia. Discussed care with the patient's with permission from the patient. He reiterates history from prior PCP, heme/onc notes regarding her possible delusions/hallucinations regarding him cheating on her. However this was prior to her recent diagnosis. The patient did not discuss this with me. He she hasn't had much to eat or drink in the last 2 days. Lots of nausea but no vomiting witnessed by her . In the ER CXR showed severe emphysema with patchy airspace consolidation in both bases, however, she is at her baseline O2 requirement of 4LPM. Given intractable nausea and hypokalemia on labs she was referred to medicine for admission and ongoing management. Principal Diagnosis diarrhea secondary to covid infection acute kidney injury secondary to dehydration from diarrhea, Nausea and vomiting Chronic respiratory failure with hypoxia covid pneumonia ruled out Discharge Exam The patient appeared well Vital signs as documented. Lungs are with scant bibasilar rales. With overall poor air movement consistent with history of COPD. Cardiac exam, Rhythm is regular.. No murmurs, rubs or gallops. Abdominal exam reveals normal bowel sounds, soft non tender, no masses Extremities are nonedematous and both pedal pulses are normal. Neurologic exam is alert and oriented, no focal loss of strength or sensation Skin is without bruises or rashes Psychologically is without concerns for anxiety or depression. Discharge Data Allergies Allergy/AdvReac Type Severity Reaction Status Date / Time No Known Allergies Allergy Verified 09/07/20 15:10 Consultations 09/07/20 13:50 ED Decision to Admit Stat Ordered Studies 09/07/20 16:05 CT abd pelvis IV con only Stat Hospital Course (1) COVID-19: At baseline hypoxia on admission (4L O2 baseline O2 requirement) therefore treatments deferred. COVID isolation precautions. covid pneumonia ruled out (2) Nausea & vomiting: Suspect etiology due to COVID-19 however appears out of proportion to her other symptoms. comments on pancreatic inflammation below, normal LFT's and lipase to rule out pancreatitis at this point, the etiology has to be covid related gastritis and colitis CT A/P 09/07/20 IMPRESSION: 1. The pancreas is prominent for age, and demonstrates a smooth contour with loss of the normal pancreatic clefts. Question faint peripancreatic infiltration. The appearance is nonspecific but could represent autoimmune pancreatitis. Correlation with clinical findings and serum amylase/lipase levels will be essential. 2. Mild hepatomegaly. 3. Advanced emphysema. 4. Mild to moderate colonic diverticulosis without CT evidence of acute diverticulitis. (3) Diarrhea: etiology of hypokalemia Suspect secondary to COVID-19 colitis Repleted magnesium /potassium (4) Hypokalemia: Supplementation given upon dishcarge with recommendation for outpt follow up in one week including blood work (5) Chronic respiratory failure with hypoxia: Pt remains on her typical 4L NC (6) Severe depression: Continue venlafaxine 150mg PO daily, given depression at a 75 mg dose at night for 225 daily, pt agrees to this change at discharge (7) History of iron deficiency anemia: post transfusion 10.3, will have 6 weeks for pepcid in addition to protonix s/p 1 unit transfusion iron low continue ferrous sulphate 325mg PO TID 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 (9) Hallucinations: Possible Started on risperidone as outpatient, will continue this. Total Time Total Time Spent Total Time Spent (In Minutes): It required greater than 30 minutes to prepare this patient for discharge Discharge Plan Discharge Items Patient Disposition: Home - Home Health Services Reason For Visit: COVID-19 PNEUMONIA, HYPOKALEMIA Discharge Diagnosis: diarrhea secondary to covid infection acute kidney injury secondary to dehydration from diarrhea, Nausea and vomiting Chronic respiratory failure with hypoxia Activity: Per Instructions section Activity Comment: slowly increase activity as your fatigue allows Non-emergency contact: Primary Care Provider Call non-emergency contact if: your symptoms worsen Follow-up/Referrals: Azar Rosales [Primary Care Provider] - Diet: Regular Addtl Attending Provider Instructions: please assure you have good oral intake of liquids see your family doctor as soon as you can, please have your blood work checked later this week for the next 6 weeks you will be on two anti acid medications then will return to one You have k,c,s antibodies in blood 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 You should restrict activities outside your home, except for getting medical care. Do not go to work, school, or public areas. Avoid using public transportation, ride-sharing, or taxis. Separate yourself from other people and animals in your home People: As much as possible, you should stay in a specific room and away from other people in your home. Also, you should use a separate bathroom, if available. Animals: You should restrict contact with pets and other animals while you are sick with COVID-19, just like you would around other people. Although there have not been reports of pets or other animals becoming sick with COVID-19, it is still recommended that people sick with COVID-19 limit contact with animals until more information is known about the virus. When possible, have another member of your household care for your animals while you are sick. If you are sick with COVID-19, avoid contact with your pet, including petting, snuggling, being kissed or licked, and sharing food. If you must care for your pet or be around animals while you are sick, wash your hands before and after you interact with pets and wear a face mask. Call ahead before visiting your doctor If you have a medical appointment, call the healthcare provider and tell them that you have or may have COVID-19. This will help the healthcare providers office take steps to keep other people from getting infected or exposed. Wear a face mask You should wear a face mask when you are around other people (e.g., sharing a room or vehicle) or pets and before you enter a healthcare providers office. If you are not able to wear a face mask (for example, because it causes trouble breathing), then people who live with you should not stay in the same room with you, or they should wear a face mask if they enter your room. Cover your coughs and sneezes Cover your mouth and nose with a tissue when you cough or sneeze. Throw used tissues in a lined trash can. Immediately wash your hands with soap and water for at least 20 seconds or, if soap and water are not available, clean your hands with an alcohol-based hand sales management trainee that contains at least 60% alcohol. Clean your hands often Wash your hands often with soap and water for at least 20 seconds, especially after blowing your nose, coughing, or sneezing; going to the bathroom; and before eating or preparing food. If soap and water are not readily available, use an alcohol-based hand sales management trainee with at least 60% alcohol, covering all surfaces of your hands and rubbing them together until they feel dry. Soap and water are the best option if hands are visibly dirty. Avoid touching your eyes, nose, and mouth with unwashed hands. Avoid sharing personal household items You should not share dishes, drinking glasses, cups, eating utensils, towels, or bedding with other people or pets in your home. After using these items, they should be washed thoroughly with soap and water. Clean all high-touch surfaces everyday High touch surfaces include counters, tabletops, doorknobs, bathroom fixtures, toilets, phones, keyboards, tablets, and bedside tables. Also, clean any surfaces that may have blood, stool, or body fluids on them. Use a household cleaning spray or wipe, according to the label instructions. Labels contain instructions for safe and effective use of the cleaning product including precautions you should take when applying the product, such as wearing gloves and making sure you have good ventilation during use of the product. Monitor your symptoms Seek prompt medical attention if your illness is worsening (e.g., difficulty breathing).Beforeseeking care, call your healthcare provider and tell them that you have, or are being evaluated for, COVID-19. Put on a face mask before you enter the facility. These steps will help the healthcare providers office to keep other people in the office or waiting room from getting infected or exposed. Ask your healthcare provider to call the local or state health department. Persons who are placed under active monitoring or facilitated self- monitoring should follow instructions provided by their local health department or occupational health professionals, as appropriate. When working with your local health department check their available hours. If you have a medical emergency and need to call 911, notify the dispatch personnel that you have, or are being evaluated for COVID-19. If possible, put on a face mask before emergency medical services arrive. Discontinuing home isolation Patients with confirmed COVID-19 should remain under home isolation precautions until the risk of secondary transmission to others is thought to be low. The decision to discontinue home isolation precautions should be made on a [id number] basis, in consultation with healthcare providers and [facility] and [facility] health departments. Pending Studies at Discharge: No Stand-Alone Forms: [facility], Smoking Cessation Medications and DC Order Prescriptions: New venlafaxine 75 mg Capsule,Extended Release 24hr 75 mg PO QPM Qty: 30 RF: 3 potassium chloride [K-Tab] 20 mEq tablet extended release 20 meq PO BID Qty: 14 RF: 0 famotidine [Pepcid] 20 mg tablet 20 mg PO BID 42 Days Qty: 84 RF: 0 Continued albuterol sulfate 5 mg/mL solution for nebulization 2.5 mg inhalation Q4H RF: 0 Daliresp 500 mcg tablet 500 mcg PO DAILY RF: 0 venlafaxine 150 mg capsule,extended release 24hr 150 mg PO DAILY RF: 0 ferrous sulfate 325 mg (65 mg iron) tablet 325 mg PO TID Qty: 60 RF: 0 metformin 500 mg tablet 500 mg PO BID Qty: 120 RF: 0 omeprazole 40 mg capsule,delayed release(DR/EC) 40 mg PO BID RF: 0 albuterol sulfate 90 mcg/actuation HFA aerosol inhaler 2 puffs inhalation Q4H RF: 0 Spiriva with HandiHaler 18 mcg capsule, w/inhalation device 1 cap inhalation DAILY RF: 0 Tradjenta 5 mg tablet 5 mg PO DAILY RF: 0 ondansetron HCl 4 mg tablet 4 mg PO Q6H PRN (Reason: Nausea) RF: 0 alprazolam 2 mg tablet 2 mg PO TID RF: 0 risperidone 0.5 mg tablet 0.5 mg PO DAILY RF: 0 rosuvastatin 10 mg tablet 10 mg PO DAILY RF: 0 Discontinued valsartan 160 mg tablet 160 mg PO DAILY RF: 0 furosemide 20 mg tablet 20 - 40 mg PO DAILY PRN (Reason: swelling) RF: 0 Discharge Orders: Discharge Order (Routine); Ordered 09/09/20 Ordered By: Johnny Matias Admission Data Admit Date/Time: 09/07/20 15:48 Attending Provider: Johnny Matias Admit Provider: Osmin Guevara Primary Care Provider: Azar Rosales Other Providers: Osmin Guevara Coding Level of Care Code D/C Day Management >30 mins Diagnoses COVID-19 U07.1 Nausea & vomiting R11.2 Diarrhea R19.7 Hypokalemia E87.6 Chronic respiratory failure with hypoxia J96.11 Severe depression F32.2 History of iron deficiency anemia Z86.2 COPD (chronic obstructive pulmonary disease) J44.9 Hallucinations R44.3
== END 2020-09-09 14:03 | disposition home or self-care (01) | DRG 178 ==
LOC: ED 12:09 → 2E 15:48 → SUATTDRO 15:48 → 2E 17:27

== ENCOUNTER 2025-07-04 15:38 | Observation (INO) ==
[2025-07-04 16:38] LABS: Hematocrit (blood only) 22.9 % (37.0-47.0); Hemoglobin 7.0 g/dL (12.0-16.0); Immature Granulocytes # (auto) 0.03 K/uL (0.01-0.20); Immature Granulocytes % (auto) 0.4 %; Mean Corpuscular Hemoglobin 26.3 pg (25.0-34.0); Mean Corpuscular Volume 86.1 fL (80.0-100.0); Platelet Count 264 K/uL (130-400); RDW Standard Deviation 47.9 fL (36.4-46.3); Red Blood Count 2.66 M/uL (4.20-5.40); White Blood Count 7.64 K/ul (4.8-10.8)
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
[2025-07-04] MEDS ORDERED: SODIUM CHLORIDE 0.9% 100 ML IV PRN (16:50)
[2025-07-04 16:51] LABS: Alanine Aminotransferase 7.0 U/L (7-52); Albumin Globulin Ratio 1.4 (0.9-2); Albumin Level 4.1 gm/dl (3.4-5.0); Alkaline Phosphatase 40.0 U/L (34-104); Anion Gap 9.0 (3-11); Bilirubin,Total 0.2 mg/dl (0.2-1.0); Blood Urea Nitrogen 30.0 mg/dl (6-23); Calcium 9.5 mg/dl (8.6-10.3); Carbon Dioxide 23.0 mmol/L (21-32); Chloride 106.0 mmol/L (98-107); Creatinine Clr Calc Pharmacy 32.2 ml/min; Globulin 3.0 gm/dl (2.5-4.0); Glucose 139.0 mg/dl (70-99(Fasting)); Lipase 48.0 U/L (11-82); Potassium 5.0 mmol/L (3.5-5.1); Sodium 138.0 mmol/L (136-145); Total Protein 7.1 gm/dl (6.0-8.3)
--- NOTE | 2025-07-04 17:09 | XRay Report ---
Chest radiograph, one view History: Nausea Comparison: None Findings: Single AP view of the chest performed. No focal consolidation or pleural effusion. No pneumothorax. The cardiomediastinal silhouette is within normal limits. Normal pulmonary vascularity. No evidence for lymphadenopathy. No visualized bony or soft tissue abnormality. Impression: Normal chest radiograph Electronically signed by Darwin Mace 07-04-2025 5:09 PM
[2025-07-04 17:10] LABS: Basophilic Stippling 1+; Polychromasia 1+
[2025-07-04] MEDS: OPTIRAY 320 100ml IV ONE (17:17)
[2025-07-04 17:37] LABS: INR 1.0 (0.9-1.1); Partial Thromboplastin Time 26 Seconds (21-31); Prothrombin Time 10.1 Seconds (9.0-12.0)
[2025-07-04] MEDS: PLASMA-LYTE A 500 ML IV ONE (17:54)
--- NOTE | 2025-07-04 17:54 | CT Scan Report ---
EXAMINATION: Abdomen and pelvis CT with CLINICAL HISTORY: B symptoms and ongoing anemia, morning nausea vomiting PRIORS: 10/21/2023 TECHNIQUE: Contiguous axial images were obtained through the abdomen and pelvis with the use of intravenous contrast. Sagittal and coronal reformations are supplied. FINDINGS: Mild hypoventilatory changes at the lung bases. Advanced atherosclerotic disease of the aorta which involves the takeoff of the celiac trunk and SMA. The liver is enlarged measuring 19 centimeter with homogeneous contrast enhancement. No hepatic mass or intrahepatic ductal dilatation. The gallbladder, portal vein, pancreas, spleen, under distended stomach, adrenals, and IVC are morphologically unremarkable. Kidneys enhance symmetrically with no calculus, mass or cyst. Bilateral renal cortical thinning noted suggesting underlying medical renal disease. Urinary bladder is distended and morphologically unremarkable. A moderate amount of formed stool present throughout the colon. Moderate bordering on severe diverticulosis of the sigmoid colon present. No pericolonic inflammatory change. No ascites, adenopathy or extra luminal gas. Mild osseous demineralization noted. No compression fracture. No suspicious osseous abnormality. IMPRESSION: 1. No CT evidence of an acute abdominal or pelvic adenopathy, mass or adenopathy. 2. Advanced atherosclerotic disease of the abdominal aorta which involves the takeoff of the celiac trunk and SMA. No bowel wall thickening. 3. Moderate to severe sigmoid colon diverticulosis with no pericolonic inflammatory change. 4. Hepatomegaly ACT 112: Positive. There are findings on this examination that require communication between the performing entity and the patient following Patient Test Result Information Act ([place] ACT 112) guidelines. Electronically signed by Sparkle Leone 07-04-2025 5:54 PM
[2025-07-04 19:46] LABS: Appearance Urine Clear (Clear); Glucose Urine UA Negative (Negative)
[2025-07-04] MEDS ORDERED: ALBUTEROL HFA 8 GM INHALER INH PRN (21:17)
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
[2025-07-04] MEDS: ENOXAPARIN INJ 40 MG/0.4 ML SYR SQ SCH (22:07)
[2025-07-04] MEDS: METOPROLOL TARTRATE 50 MG TAB PO SCH (22:08)
[2025-07-05 06:38] LABS: Hematocrit (blood only) 23.6 % (37.0-47.0); Hemoglobin 7.6 g/dL (12.0-16.0)
[2025-07-05 07:11] LABS: Albumin Level 3.9 gm/dl (3.4-5.0); Anion Gap 8.0 (3-11); Blood Urea Nitrogen 26.0 mg/dl (6-23); Calcium 9.3 mg/dl (8.6-10.3); Carbon Dioxide 25.0 mmol/L (21-32); Chloride 107.0 mmol/L (98-107); Creatinine Clr Calc Pharmacy 40.0 ml/min; Glucose 107.0 mg/dl (70-99(Fasting)); Potassium 4.2 mmol/L (3.5-5.1); Sodium 140.0 mmol/L (136-145)
[2025-07-05] MEDS ORDERED: SODIUM CHLORIDE 0.9% 100 ML IV PRN (07:28)
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
[2025-07-05] MEDS: VALSARTAN 80 MG TAB PO SCH (07:36)
[2025-07-05] MEDS: FLUTICASONE FUROATE 100MCG 14 PUFFS/INHALER INH SCH (07:36)
[2025-07-05] MEDS: ROSUVASTATIN CALCIUM 10 MG TAB PO SCH (07:36)
[2025-07-05] MEDS: UMECLIDINIUM/VILANTEROL 62.5/25MCG 7 PUFFS/INHALER INH SCH (07:36)
[2025-07-05] MEDS: ROFLUMILAST 500 MCG TAB PO SCH (07:37)
[2025-07-05] MEDS: VENLAFAXINE HCL XR 150 MG CAPXR PO SCH (07:37)
[2025-07-05] MEDS: LORazepam 0.5 MG TAB PO STA (22:28)
--- NOTE | 2025-07-05 22:45 | Electrocardiogram Report ---
Test Reason : Blood Pressure : */* mmHG Vent. Rate : 64 BPM Atrial Rate : 64 BPM P-R Int : 134 ms QRS Dur : 70 ms QT Int : 378 ms P-R-T Axes : 58 14 43 degrees QTcB Int : 389 ms Normal sinus rhythm Normal ECG When compared with ECG of 26-Apr-2022 09:11, No significant change was found Confirmed by Jean-Claude Hassan ([id number]) on 07/05/2025 10:44:51 PM Referred By: REFERRED SELF Confirmed By: Jean-Claude Hassan
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
[2025-07-06 07:54] LABS: Hematocrit (blood only) 29.4 % (37.0-47.0); Hemoglobin 9.4 g/dL (12.0-16.0)
[2025-07-06 08:11] LABS: Albumin Level 3.9 gm/dl (3.4-5.0); Anion Gap 4.0 (3-11); Blood Urea Nitrogen 21.0 mg/dl (6-23); Calcium 8.9 mg/dl (8.6-10.3); Carbon Dioxide 29.0 mmol/L (21-32); Chloride 108.0 mmol/L (98-107); Creatinine Clr Calc Pharmacy 46.5 ml/min; Glucose 126.0 mg/dl (70-99(Fasting)); Potassium 4.4 mmol/L (3.5-5.1); Sodium 141.0 mmol/L (136-145)
[2025-07-06 08:15] VITALS: PULSE 65; RESP 16; TEMP 97.7; O2SAT 96
[2025-07-06 09:40] VITALS: BP 92/73
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
== END 2025-07-06 09:55 | disposition home or self-care (01) | DRG 812 ==
LOC: ED 15:38 → 2E 19:19 → INTOOBSV 19:19 → 2E 20:57
DX: Z86.16 Personal history of COVID-19; J43.1 Panlobular emphysema; J44.9 Chronic obstructive pulmonary disease, unspecified; Z87.891 Personal history of nicotine dependence; N17.9 Acute kidney failure, unspecified; J96.11 Chronic respiratory failure with hypoxia; Z79.899 Other long term (current) drug therapy; D50.9 Iron deficiency anemia, unspecified; R45.89 Other symptoms and signs involving emotional state; F32.2 Major depressive disorder, single episode, severe without psychotic features